=== PATIENT | male | born 1945 | race Caucasian/White ===

== ENCOUNTER → 2016-08-08 | Outpatient (CLI) | payer OTHER ==
[~2016-08-08] MED LIST: ASPI81CH43; FURO40TA PO; OMEP20TA44 PO; POTA12PO2 PO
== END | disposition home or self-care (01) ==
LOC: LAB 12:49
PROVIDERS: ATTEND Family Medicine
DX: L05.01 Pilonidal cyst with abscess (principal)
CPT/HCPCS: 87205

== ENCOUNTER 2017-04-11 12:49 | Inpatient (IN) | payer OTHER ==
[~2017-04-11] VITALS: Ht 188 cm; Wt 90.9 kg
[~2017-04-11 12:49] MED LIST changes: -ASPI81CH43; +ASPI81CH43 OR; +CHOL500023 PO; -FURO40TA PO; -POTA12PO2 PO; +SPIR50TA23 PO
[2017-04-11] MEDS ORDERED: SODIUM CHLORIDE 0.9% 1,000 ML IV ONE ×2 (13:05→17:45)
[2017-04-11] MEDS ORDERED: CLINDAMYCIN 600MG IV 50 ML IV ONE (13:15)
[2017-04-11] MEDS ORDERED: ACETAMINOPHEN 500 MG TAB PO PRN (16:00)
[2017-04-11] MEDS ORDERED: PROMETHAZINE HCL 25 MG/ML 1ML IV PRN (16:00)
[2017-04-11] MEDS ORDERED: HYDROcodone-ACET 5/325MG TAB PO PRN (16:00)
[2017-04-11] MEDS ORDERED: LORazepam 0.5 MG TAB PO PRN (16:00)
[2017-04-11] MEDS ORDERED: TEMAZEPAM 15 MG CAP PO PRN (16:00)
[2017-04-11] MEDS ORDERED: MORPHINE SULF INJ 2 MG/ML SYRINGE 1ML IV PRN (16:00)
[2017-04-11] MEDS ORDERED: FAMOTIDINE (10MG/ML) 2ML VL IV SCH (16:00)
[2017-04-11] MEDS ORDERED: cefTRIAXone 1GM/10ml IVPUSH 10 ML IV ONE (16:00)
[2017-04-11 16:04] LABS: Hemoglobin 12.9 g/dL (13.5-17.5); INR 1.09 (0.9-1.15); Lymphocytes # (auto) 1.3 uL; Monocytes # (auto) 0.7 uL; Neutrophils # (auto) 6.9 uL; Partial Thromboplastin Time 27.7 sec (22.64-33.71); Prothrombin Time 11.9 sec (9.37-12.3)
[2017-04-11 16:05] LABS: Basophils # (auto) 0 uL; Basophils % (auto) 0.4 % (0.0-2.0); Eosinophils # (auto) 0 uL; Eosinophils % (auto) 0.4 % (0.0-7.0); Hematocrit 39.6 % (41.0-53.0); Lymphocytes % (auto) 14.1 % (10.0-50.0); Mean Corpuscular Hemoglobin 33.6 pg (28.0-32.0); Mean Corpuscular Hgb Conc. 32.5 g/dL (32.0-36.0); Mean Corpuscular Volume 103.2 fL (80.0-100.0); Monocytes % (auto) 7.9 % (0.0-12.0); Neutrophils % (auto) 77.2 % (37.0-80.0); Platelet Count (auto) 442 10^3/uL (140-450); Red Blood Cells 3.84 10^6/uL (4.5-5.90); Red Cell Distribution Width 13.1 % (11.8-14.3); White Blood Cell 8.9 10^3/uL (4.4-10.8)
[2017-04-11] MEDS ORDERED: PANTOPRAZOLE 40 MG TAB PO ONE (16:15)
[2017-04-11] MEDS ORDERED: CHOLECALCIFEROL (VITD3) 1,000 UNIT TAB PO ONE (16:15)
[2017-04-11] MEDS ORDERED: SPIRONOLACTONE 25 MG TAB PO ONE (16:15)
[2017-04-11 16:17] LABS: BUN/Creatinine Ratio 30.8; Bilirubin, Total 0.6 mg/dL (0.2-1.0); Calcium 7.2 mg/dL (8.5-10.1); Potassium 4.6 mmol/L (3.5-5.1); Total Protein 5.9 g/dL (6.4-8.2)
[2017-04-11] MEDS: metroNIDAZOLE 500MG/100ML 100 ML IV SCH (17:30)
[2017-04-11] MEDS: SODIUM CHLORIDE 0.9% 1,000 ML IV SCH (17:45)
[2017-04-11 21:52] LABS: Basophils # (auto) 0.1 uL; Eosinophils # (auto) 0.1 uL; Hematocrit 39.4 % (41.0-53.0); Monocytes # (auto) 0.7 uL; Neutrophils # (auto) 6.3 uL; Red Cell Distribution Width 13.3 % (11.8-14.3)
[2017-04-11 21:54] LABS: Basophils % (auto) 1.5 % (0.0-2.0); Hemoglobin 12.5 g/dL (13.5-17.5); Lymphocytes # (auto) 1.3 uL; Lymphocytes % (auto) 15.5 % (10.0-50.0); Mean Corpuscular Hemoglobin 32.8 pg (28.0-32.0); Mean Corpuscular Hgb Conc. 31.8 g/dL (32.0-36.0); Mean Corpuscular Volume 103.1 fL (80.0-100.0); Monocytes % (auto) 8.4 % (0.0-12.0); Neutrophils % (auto) 73.6 % (37.0-80.0); Platelet Count (auto) 497 10^3/uL (140-450); Red Blood Cells 3.82 10^6/uL (4.5-5.90); White Blood Cell 8.5 10^3/uL (4.4-10.8)
[2017-04-11 22:00] VITALS: BP 88/55
[2017-04-11 22:02] LABS: INR 1.05 (0.9-1.15); Partial Thromboplastin Time 28.9 sec (22.64-33.71); Prothrombin Time 11.5 sec (9.37-12.3)
[2017-04-11 22:09] LABS: BUN/Creatinine Ratio 31.8; Calcium 7.2 mg/dL (8.5-10.1); Potassium 4.1 mmol/L (3.5-5.1)
[2017-04-11 22:11] LABS: Bilirubin, Total 0.4 mg/dL (0.2-1.0); Total Protein 5.8 g/dL (6.4-8.2)
[2017-04-12] MEDS: SODIUM CHLORIDE 0.9% 1,000 ML IV SCH ×3 (01:48→21:48)
[2017-04-12 05:00] VITALS: BP 97/39
[2017-04-12] MEDS: metroNIDAZOLE 500MG/100ML 100 ML IV SCH ×4 (05:08→18:00)
[2017-04-12 08:41] VITALS: BP 86/43
[2017-04-12] MEDS: cefTRIAXone 1GM/10ml IVPUSH 10 ML IV SCH (11:22)
[2017-04-12] MEDS: SPIRONOLACTONE 25 MG TAB PO SCH (11:23)
[2017-04-12] MEDS: PANTOPRAZOLE 40 MG TAB PO SCH (11:24)
[2017-04-12] MEDS: CHOLECALCIFEROL (VITD3) 1,000 UNIT TAB PO SCH (11:24)
[2017-04-12 13:27] VITALS: BP 86/51
[2017-04-12 19:41] LABS: Eosinophils # (auto) 0.1 uL; Hemoglobin 12.1 g/dL (13.5-17.5)
[2017-04-12 19:42] LABS: Basophils # (auto) 0.2 uL; Basophils % (auto) 2.3 % (0.0-2.0); Hematocrit 37.1 % (41.0-53.0); Lymphocytes # (auto) 1.1 uL; Lymphocytes % (auto) 13.6 % (10.0-50.0); Mean Corpuscular Hemoglobin 33.9 pg (28.0-32.0); Mean Corpuscular Hgb Conc. 32.7 g/dL (32.0-36.0); Mean Corpuscular Volume 103.6 fL (80.0-100.0); Monocytes # (auto) 0.5 uL; Monocytes % (auto) 6.1 % (0.0-12.0); Neutrophils # (auto) 6.5 uL; Nucleated Red Blood Cells % 0.1 %; Platelet Count (auto) 425 10^3/uL (140-450); Red Blood Cells 3.58 10^6/uL (4.5-5.90); Red Cell Distribution Width 13.1 % (11.8-14.3); White Blood Cell 8.4 10^3/uL (4.4-10.8)
[2017-04-12 20:00] VITALS: BP 85/46
[2017-04-12 20:09] LABS: BUN/Creatinine Ratio 23.9; Bilirubin, Total 0.2 mg/dL (0.2-1.0); Potassium 4.2 mmol/L (3.5-5.1); Total Protein 5.7 g/dL (6.4-8.2)
[2017-04-12] MEDS ORDERED: MORPHINE SULFATE 10 MG/ML INJ 1ML SDV IV PRN (21:15)
[2017-04-12 22:00] VITALS: BP 85/46
[2017-04-12 22:28] LABS: Urine Bacteria FEW /hpf (None Seen); Urine Blood Negative /uL (Negative); Urine Mucus FEW (None Seen); Urine WBC 30 /hpf (0 - 3)
[2017-04-13] MEDS: metroNIDAZOLE 500MG/100ML 100 ML IV SCH ×4 (00:17→18:05)
[2017-04-13 05:52] VITALS: BP 80/58
[2017-04-13] MEDS ORDERED: LABETALOL HCL 5 MG/ML 4ML SYRINGE IV ONE (07:21)
[2017-04-13] MEDS ORDERED: DEXAMETHASONE SOD PHOS 10MG/1ML VIAL INJ ONE (07:21)
[2017-04-13] MEDS ORDERED: ONDANSETRON HCL 4 MG/2 ML VIAL ONE (07:21)
[2017-04-13] MEDS ORDERED: LIDOCAINE HCL 2 %PF INJ 10ML AMP IJ ONE (07:21)
[2017-04-13] MEDS ORDERED: PROPOFOL 10 MG/ML 20 ML IV ONE (07:21)
[2017-04-13] MEDS ORDERED: fentaNYL CITRATE 100 MCG/2 ML VL ONE (07:23)
[2017-04-13] MEDS ORDERED: CLINDAMYCIN 900MG IV 50 ML IV ONE (07:32)
[2017-04-13] MEDS ORDERED: ceFAZolin 1GM/50ML 100 ML IV ONE (07:32)
[2017-04-13] MEDS ORDERED: ePHEDrine SULFATE 50 MG/ML AMP ONE (07:57)
[2017-04-13 08:00] VITALS: BP 93/53
[2017-04-13] MEDS ORDERED: BUPIVACAINE HCL 50 ML ONE (08:22)
[2017-04-13] MEDS ORDERED: FLUMAZENIL 0.1 MG/ML INJ 10ML MDV IV ONE (08:45)
[2017-04-13] MEDS ORDERED: ePHEDrine SULFATE 50 MG/ML AMP IV PRN (08:45)
[2017-04-13] MEDS ORDERED: hydrALAZINE HCL 20 MG/ML VL IV PRN (08:45)
[2017-04-13] MEDS ORDERED: HYDROmorphone HCL 2 MG/ML VL IV PRN ×2 (08:45)
[2017-04-13] MEDS ORDERED: NALOXONE HCL 0.4 MG/ML VIAL IV PRN (08:45)
[2017-04-13] MEDS ORDERED: LABETALOL HCL 5 MG/ML 4ML SYRINGE IV PRN (08:45)
[2017-04-13] MEDS: SODIUM CHLORIDE 0.9% 1,000 ML IV SCH ×2 (12:11→18:04)
[2017-04-13] MEDS: PANTOPRAZOLE 40 MG TAB PO SCH (12:12)
[2017-04-13] MEDS: cefTRIAXone 1GM/10ml IVPUSH 10 ML IV SCH (12:12)
[2017-04-13] MEDS: SPIRONOLACTONE 25 MG TAB PO SCH (12:12)
[2017-04-13] MEDS: CHOLECALCIFEROL (VITD3) 1,000 UNIT TAB PO SCH (12:12)
[2017-04-13 13:00] VITALS: BP 93/53
[2017-04-13 17:16] VITALS: BP 94/44
[2017-04-13 22:00] VITALS: BP 99/59
[2017-04-14] MEDS: metroNIDAZOLE 500MG/100ML 100 ML IV SCH ×5 (00:05→23:34)
[2017-04-14] MEDS: SODIUM CHLORIDE 0.9% 1,000 ML IV SCH ×3 (03:56→23:48)
[2017-04-14 05:54] VITALS: BP 97/57
[2017-04-14 07:10] LABS: Basophils # (auto) 0.1 uL; Eosinophils # (auto) 0 uL; Hemoglobin 11.9 g/dL (13.5-17.5)
[2017-04-14 07:15] LABS: Basophils % (auto) 0.8 % (0.0-2.0); Hematocrit 36.8 % (41.0-53.0); Lymphocytes # (auto) 0.5 uL; Lymphocytes % (auto) 7.1 % (10.0-50.0); Mean Corpuscular Hemoglobin 33.4 pg (28.0-32.0); Mean Corpuscular Hgb Conc. 32.4 g/dL (32.0-36.0); Mean Corpuscular Volume 103.1 fL (80.0-100.0); Monocytes # (auto) 0.5 uL; Monocytes % (auto) 6.5 % (0.0-12.0); Neutrophils # (auto) 6.6 uL; Neutrophils % (auto) 85.6 % (37.0-80.0); Platelet Count (auto) 374 10^3/uL (140-450); Red Blood Cells 3.57 10^6/uL (4.5-5.90); Red Cell Distribution Width 13.3 % (11.8-14.3); White Blood Cell 7.8 10^3/uL (4.4-10.8)
[2017-04-14 07:29] LABS: Albumin 1.9 g/dL (3.4-5.0); Calcium 7.5 mg/dL (8.5-10.1); Potassium 4.2 mmol/L (3.5-5.1)
[2017-04-14 07:33] LABS: BUN/Creatinine Ratio 21.1; Bilirubin, Total 0.3 mg/dL (0.2-1.0); Total Protein 5.5 g/dL (6.4-8.2)
[2017-04-14 09:00] VITALS: BP 99/39
[2017-04-14] MEDS: CHOLECALCIFEROL (VITD3) 1,000 UNIT TAB PO SCH (10:45)
[2017-04-14] MEDS: cefTRIAXone 1GM/10ml IVPUSH 10 ML IV SCH (10:45)
[2017-04-14] MEDS: SPIRONOLACTONE 25 MG TAB PO SCH (10:45)
[2017-04-14] MEDS: PANTOPRAZOLE 40 MG TAB PO SCH (10:45)
[2017-04-14 13:00] VITALS: BP 85/39
[2017-04-14 16:52] VITALS: BP 98/43
[2017-04-14 18:00] VITALS: BP 94/45
[2017-04-14 20:00] VITALS: BP 94/45
[2017-04-15 05:29] VITALS: BP 90/51
[2017-04-15] MEDS: metroNIDAZOLE 500MG/100ML 100 ML IV SCH ×3 (05:41→17:30)
[2017-04-15 09:00] VITALS: BP 95/48
[2017-04-15] MEDS: SODIUM CHLORIDE 0.9% 1,000 ML IV SCH (09:37)
[2017-04-15] MEDS: SPIRONOLACTONE 25 MG TAB PO SCH (09:37)
[2017-04-15] MEDS: cefTRIAXone 1GM/10ml IVPUSH 10 ML IV SCH (09:37)
[2017-04-15] MEDS: CHOLECALCIFEROL (VITD3) 1,000 UNIT TAB PO SCH (09:38)
[2017-04-15] MEDS: PANTOPRAZOLE 40 MG TAB PO SCH (09:38)
[2017-04-15 13:00] VITALS: BP 95/54
[2017-04-15] MEDS ORDERED: POTASSIUM CHL 20 Meq TABLET PO ONE (13:00)
[2017-04-15] MEDS ORDERED: ERTAPENEM SOD INJ 1 GM in SODIUM CHL 0.9% 100 ML IV ONE (13:00)
[2017-04-15] MEDS ORDERED: FUROSEMIDE 20 MG/2 ML VIAL IV ONE (13:00)
[2017-04-15] MEDS ORDERED: ZINC SULFATE 220 MG CAP PO ONE (13:00)
[2017-04-15] MEDS ORDERED: ASCORBIC ACID 500 MG TAB PO ONE (13:00)
[2017-04-15 17:43] VITALS: BP 101/56
[2017-04-15 20:00] VITALS: BP 99/61
[2017-04-15] MEDS ORDERED: LIDOCAINE 1% HCL (LOCAL ANESTH.) INJ 20ML MDV ID ONE (21:45)
[2017-04-15] MEDS: SODIUM CHLOR 0.9% PF (SALINE LOCK) 10ML VIAL IV SCH (22:02)
[2017-04-15 22:26] VITALS: BP 99/61
[2017-04-16] MEDS: metroNIDAZOLE 500MG/100ML 100 ML IV SCH ×2 (00:11→06:00)
[2017-04-16 04:43] VITALS: BP 110/55
[2017-04-16 06:26] LABS: Basophils # (auto) 0.1 uL; Eosinophils # (auto) 0.1 uL; Mean Corpuscular Hgb Conc. 32.4 g/dL (32.0-36.0); White Blood Cell 8.2 10^3/uL (4.4-10.8)
[2017-04-16 06:27] LABS: Basophils % (auto) 0.9 % (0.0-2.0); Eosinophils % (auto) 1.4 % (0.0-7.0); Hematocrit 38.2 % (41.0-53.0); Hemoglobin 12.4 g/dL (13.5-17.5); Lymphocytes # (auto) 1.5 uL; Lymphocytes % (auto) 18.4 % (10.0-50.0); Mean Corpuscular Hemoglobin 33.3 pg (28.0-32.0); Mean Corpuscular Volume 102.6 fL (80.0-100.0); Monocytes # (auto) 0.7 uL; Monocytes % (auto) 9.1 % (0.0-12.0); Neutrophils # (auto) 5.7 uL; Neutrophils % (auto) 70.2 % (37.0-80.0); Nucleated Red Blood Cells % 0.1 %; Platelet Count (auto) 387 10^3/uL (140-450); Red Blood Cells 3.73 10^6/uL (4.5-5.90); Red Cell Distribution Width 13.1 % (11.8-14.3)
[2017-04-16 06:39] LABS: BUN/Creatinine Ratio 15.6; Calcium 7.8 mg/dL (8.5-10.1); Potassium 3.9 mmol/L (3.5-5.1)
[2017-04-16 07:54] VITALS: BP 107/73
[2017-04-16] MEDS: POTASSIUM CHL 20 Meq TABLET PO SCH (09:32)
[2017-04-16] MEDS: SODIUM CHLOR 0.9% PF (SALINE LOCK) 10ML VIAL IV SCH ×2 (09:32→20:44)
[2017-04-16] MEDS: CHOLECALCIFEROL (VITD3) 1,000 UNIT TAB PO SCH (09:32)
[2017-04-16] MEDS: ASCORBIC ACID 500 MG TAB PO SCH (09:32)
[2017-04-16] MEDS: ZINC SULFATE 220 MG CAP PO SCH (09:32)
[2017-04-16] MEDS: PANTOPRAZOLE 40 MG TAB PO SCH (09:33)
[2017-04-16] MEDS: SPIRONOLACTONE 25 MG TAB PO SCH (09:33)
[2017-04-16] MEDS: FUROSEMIDE 40 MG TAB PO SCH (09:47)
[2017-04-16] MEDS: ERTAPENEM SOD INJ 1 GM in SODIUM CHL 0.9% 100 ML IV SCH (09:47)
[2017-04-16] MEDS: metroNIDAZOLE 500 MG TAB PO SCH ×2 (13:40→22:08)
[2017-04-16 14:05] VITALS: BP 95/54
[2017-04-16 17:15] VITALS: BP 84/59
[2017-04-16 17:32] VITALS: BP 112/52
[2017-04-16] MEDS: PRO-STAT 64 30ML PO SCH (18:22)
[2017-04-16 22:00] VITALS: BP 88/59
[2017-04-17] MEDS: metroNIDAZOLE 500 MG TAB PO SCH ×3 (05:44→21:51)
[2017-04-17 05:46] VITALS: BP 91/56
[2017-04-17 08:00] VITALS: BP 114/58
[2017-04-17 09:00] VITALS: BP 114/58
[2017-04-17] MEDS: FUROSEMIDE 40 MG TAB PO SCH (10:00)
[2017-04-17] MEDS: POTASSIUM CHL 20 Meq TABLET PO SCH (10:00)
[2017-04-17] MEDS: SODIUM CHLOR 0.9% PF (SALINE LOCK) 10ML VIAL IV SCH ×2 (10:28→21:44)
[2017-04-17] MEDS: ERTAPENEM SOD INJ 1 GM in SODIUM CHL 0.9% 100 ML IV SCH (10:28)
[2017-04-17] MEDS: CHOLECALCIFEROL (VITD3) 1,000 UNIT TAB PO SCH (10:29)
[2017-04-17] MEDS: PANTOPRAZOLE 40 MG TAB PO SCH (10:29)
[2017-04-17] MEDS: SPIRONOLACTONE 25 MG TAB PO SCH (10:29)
[2017-04-17] MEDS: ASCORBIC ACID 500 MG TAB PO SCH (10:29)
[2017-04-17] MEDS: ZINC SULFATE 220 MG CAP PO SCH (10:29)
[2017-04-17] MEDS: PRO-STAT 64 30ML PO SCH ×2 (10:31→18:38)
[2017-04-17] MEDS ORDERED: AMIKACIN 0 ML IV SCH (11:30)
[2017-04-17] MEDS ORDERED: ASPI81TA27 PO (12:01)
[2017-04-17 12:30] VITALS: BP 101/64
[2017-04-17] MEDS ORDERED: AMIKACIN 1,500 MG in D5W 5% 250 ML IV SCH (14:00)
[2017-04-17] MEDS: MEROPENEM 1gm/20ml IVPUSH 20 ML IV SCH ×2 (15:09→21:51)
[2017-04-17 17:12] VITALS: BP 100/56
[2017-04-17] MEDS: D5W 5% IV SCH (17:18)
[2017-04-17] MEDS: AMIKACIN IV SCH (17:18)
[2017-04-17 21:29] VITALS: BP 89/47
[2017-04-18 05:16] VITALS: BP 90/49
[2017-04-18] MEDS: MEROPENEM 1gm/20ml IVPUSH 20 ML IV SCH ×3 (05:32→21:53)
[2017-04-18] MEDS: metroNIDAZOLE 500 MG TAB PO SCH ×3 (05:33→21:46)
[2017-04-18 08:00] VITALS: BP 94/47
[2017-04-18 09:00] VITALS: BP 86/48
[2017-04-18] MEDS: POTASSIUM CHL 20 Meq TABLET PO SCH (10:00)
[2017-04-18] MEDS: FUROSEMIDE 40 MG TAB PO SCH (10:00)
[2017-04-18] MEDS: PANTOPRAZOLE 40 MG TAB PO SCH (10:17)
[2017-04-18] MEDS: SPIRONOLACTONE 25 MG TAB PO SCH (10:17)
[2017-04-18] MEDS: ZINC SULFATE 220 MG CAP PO SCH (10:18)
[2017-04-18] MEDS: PRO-STAT 64 30ML PO SCH ×2 (10:18→18:09)
[2017-04-18] MEDS: CHOLECALCIFEROL (VITD3) 1,000 UNIT TAB PO SCH (10:18)
[2017-04-18] MEDS: ASCORBIC ACID 500 MG TAB PO SCH (10:18)
[2017-04-18] MEDS: SODIUM CHLOR 0.9% PF (SALINE LOCK) 10ML VIAL IV SCH ×2 (10:19→21:54)
[2017-04-18 13:00] VITALS: BP 91/42
[2017-04-18 15:31] LABS: Basophils # (auto) 0.1 uL; Eosinophils # (auto) 0.2 uL; Hemoglobin 12.9 g/dL (13.5-17.5); Lymphocytes # (auto) 1.3 uL; Monocytes # (auto) 0.9 uL; Neutrophils # (auto) 7.2 uL; Red Cell Distribution Width 13.4 % (11.8-14.3); White Blood Cell 9.7 10^3/uL (4.4-10.8)
[2017-04-18 15:32] LABS: Basophils % (auto) 0.8 % (0.0-2.0); Eosinophils % (auto) 2.4 % (0.0-7.0); Hematocrit 39.8 % (41.0-53.0); Lymphocytes % (auto) 13.3 % (10.0-50.0); Mean Corpuscular Hemoglobin 33.1 pg (28.0-32.0); Mean Corpuscular Hgb Conc. 32.4 g/dL (32.0-36.0); Monocytes % (auto) 8.9 % (0.0-12.0); Neutrophils % (auto) 74.6 % (37.0-80.0); Nucleated Red Blood Cells % 0.1 %; Platelet Count (auto) 349 10^3/uL (140-450)
[2017-04-18 16:42] VITALS: BP 90/59
[2017-04-18] MEDS: D5W 5% IV SCH (17:43)
[2017-04-18] MEDS: AMIKACIN IV SCH (17:43)
[2017-04-18 22:00] VITALS: BP 89/51
[2017-04-19 05:14] VITALS: BP 82/51
[2017-04-19] MEDS: MEROPENEM 1gm/20ml IVPUSH 20 ML IV SCH ×2 (05:53→14:00)
[2017-04-19] MEDS: metroNIDAZOLE 500 MG TAB PO SCH ×2 (05:53→14:00)
[2017-04-19 08:00] VITALS: BP 91/54
[2017-04-19 09:23] VITALS: BP 91/57
[2017-04-19] MEDS: CHOLECALCIFEROL (VITD3) 1,000 UNIT TAB PO SCH (10:00)
[2017-04-19] MEDS: FUROSEMIDE 40 MG TAB PO SCH (10:00)
[2017-04-19] MEDS: POTASSIUM CHL 20 Meq TABLET PO SCH (10:00)
[2017-04-19] MEDS: PANTOPRAZOLE 40 MG TAB PO SCH (10:01)
[2017-04-19] MEDS: ZINC SULFATE 220 MG CAP PO SCH (10:01)
[2017-04-19] MEDS: PRO-STAT 64 30ML PO SCH (10:01)
[2017-04-19] MEDS: ASCORBIC ACID 500 MG TAB PO SCH (10:01)
[2017-04-19] MEDS: SPIRONOLACTONE 25 MG TAB PO SCH (10:01)
[2017-04-19] MEDS: SODIUM CHLOR 0.9% PF (SALINE LOCK) 10ML VIAL IV SCH (10:01)
[2017-04-19 11:12] VITALS: BP 94/55
[2017-04-19 12:03] VITALS: BP 85/45
[2017-04-20] MEDS ORDERED: D5W 5% IV SCH (16:00)
[2017-04-20] MEDS ORDERED: AMIKACIN IV SCH (16:00)
== END 2017-04-19 13:14 | DRG 856 ==
LOC: EDUNIT# 12:49 → ER 12:49 → EDBD 12:49 → OVERFLOW 12:50 → EAST 18:29
PROVIDERS: ADMIT Internal Medicine; ATTEND Internal Medicine
PROC: 0W9L30Z Drainage of Lower Back with Drainage Device, Percutaneous Approach (ICD-10-PCS; 2017-04-13)
PROC: 0JQ70ZZ Repair Back Subcutaneous Tissue and Fascia, Open Approach (ICD-10-PCS; 2017-04-13)
PROC: 0JB70ZZ Excision of Back Subcutaneous Tissue and Fascia, Open Approach (ICD-10-PCS; principal; 2017-04-13 07:38)
PROC: 02HV33Z Insertion of Infusion Device into Superior Vena Cava, Percutaneous Approach (ICD-10-PCS; 2017-04-15)
DX: T81.4XXA Infection following a procedure, initial encounter (principal); L89.154 Pressure ulcer of sacral region, stage 4; E44.0 Moderate protein-calorie malnutrition; I11.0 Hypertensive heart disease with heart failure; I50.32 Chronic diastolic (congestive) heart failure; E66.01 Morbid (severe) obesity due to excess calories; T81.31XA Disruption of external operation (surgical) wound, not elsewhere classified, initial encounter; I73.9 Peripheral vascular disease, unspecified; I89.0 Lymphedema, not elsewhere classified; K21.9 Gastro-esophageal reflux disease without esophagitis; Y83.8 Other surgical procedures as the cause of abnormal reaction of the patient, or of later complication, without mention of misadventure at the time of the procedure; F41.9 Anxiety disorder, unspecified; G47.00 Insomnia, unspecified; M19.90 Unspecified osteoarthritis, unspecified site; K52.9 Noninfective gastroenteritis and colitis, unspecified; Z82.49 Family history of ischemic heart disease and other diseases of the circulatory system; Z98.84 Bariatric surgery status; Z68.25 Body mass index [BMI] 25.0-25.9, adult; Z88.2 Allergy status to sulfonamides; Z79.899 Other long term (current) drug therapy; Z90.49 Acquired absence of other specified parts of digestive tract; Z90.89 Acquired absence of other organs; Y92.89 Other specified places as the place of occurrence of the external cause
CPT/HCPCS: 36415; 36569; 71045; 80048; 80053; 80150; 81001; 82565; 85025; 85610; 85730; 86850; 86900; 86901; 87070; 87075; 87077; 87081; 87186; 87205; 87493; 94761; 96361; 96365; 96375; 96379; 97110; 97163; 97530; J0690; J1100; J1335; J2405; J2704; J3490; J7060

== ENCOUNTER 2017-04-29 17:27 | Emergency (ER) | payer OTHER ==
[~2017-04-29] VITALS: Ht 185.4 cm; Wt 93.0 kg
[~2017-04-29 17:27] MED LIST changes: -ASPI81CH43 OR; +ASPI81TA27 PO
[2017-04-29 21:04] LABS: Basophils # (auto) 0 uL; Basophils % (auto) 0.6 % (0.0-2.0); Eosinophils # (auto) 0.2 uL; Eosinophils % (auto) 2.3 % (0.0-7.0); Hematocrit 38.3 % (41.0-53.0); Hemoglobin 12.6 g/dL (13.5-17.5); Lymphocytes # (auto) 1.4 uL; Lymphocytes % (auto) 18.9 % (10.0-50.0); Mean Corpuscular Hemoglobin 32.7 pg (28.0-32.0); Mean Corpuscular Volume 99.3 fL (80.0-100.0); Monocytes # (auto) 0.7 uL; Monocytes % (auto) 9.5 % (0.0-12.0); Neutrophils # (auto) 5.1 uL; Neutrophils % (auto) 68.7 % (37.0-80.0); Nucleated Red Blood Cells % 0.3 %; Platelet Count (auto) 356 10^3/uL (140-450); Red Blood Cells 3.85 10^6/uL (4.5-5.90); Red Cell Distribution Width 13.5 % (11.8-14.3); White Blood Cell 7.5 10^3/uL (4.4-10.8)
[2017-04-29 21:13] LABS: BUN/Creatinine Ratio 18.2; Calcium 7.6 mg/dL (8.5-10.1); Potassium 3.8 mmol/L (3.5-5.1)
[2017-04-29 22:10] VITALS: BP 85/61
== END 2017-04-29 21:05 | disposition home or self-care (01) ==
LOC: EDBD 17:27 → ER 17:27
DX: L89.154 Pressure ulcer of sacral region, stage 4 (principal); M19.90 Unspecified osteoarthritis, unspecified site; K21.9 Gastro-esophageal reflux disease without esophagitis; Z90.49 Acquired absence of other specified parts of digestive tract; Z90.89 Acquired absence of other organs; Z88.2 Allergy status to sulfonamides; Z79.899 Other long term (current) drug therapy
CPT/HCPCS: 36415; 80048; 85025

== ENCOUNTER 2017-05-08 12:33 | Observation (INO) | payer OTHER ==
[~2017-05-08] VITALS: Ht 182.9 cm; Wt 88.5 kg
[2017-05-08 15:25] LABS: Basophils # (auto) 0.1 uL; Eosinophils # (auto) 0.2 uL; Eosinophils % (auto) 2.9 % (0.0-7.0); Hematocrit 39.3 % (41.0-53.0); Hemoglobin 12.8 g/dL (13.5-17.5); Lymphocytes # (auto) 1.3 uL; Lymphocytes % (auto) 15.9 % (10.0-50.0); Mean Corpuscular Hemoglobin 32.2 pg (28.0-32.0); Mean Corpuscular Hgb Conc. 32.6 g/dL (32.0-36.0); Mean Corpuscular Volume 98.8 fL (80.0-100.0); Monocytes # (auto) 0.6 uL; Monocytes % (auto) 7.6 % (0.0-12.0); Neutrophils % (auto) 72.6 % (37.0-80.0); Nucleated Red Blood Cells % 0.1 %; Platelet Count (auto) 330 10^3/uL (140-450); Red Blood Cells 3.98 10^6/uL (4.5-5.90); Red Cell Distribution Width 14.1 % (11.8-14.3); White Blood Cell 8.2 10^3/uL (4.4-10.8)
[2017-05-08 15:37] LABS: Albumin 1.9 g/dL (3.4-5.0); BUN/Creatinine Ratio 28.8; Bilirubin, Total 0.3 mg/dL (0.2-1.0); Calcium 7.9 mg/dL (8.5-10.1); Potassium 4.4 mmol/L (3.5-5.1); Total Protein 5.9 g/dL (6.4-8.2)
[2017-05-08 15:47] LABS: Urine Bacteria NONE SEEN /hpf (None Seen); Urine Blood Negative /uL (Negative); Urine Hyaline Cast FEW /lpf (0 - 2); Urine Specific Gravity 1.016 (1.001-1.035); Urine WBC <1 /hpf (0 - 3)
[2017-05-08] MEDS ORDERED: cefTRIAXone 1GM/10ml IVPUSH 10 ML IV ONE (17:45)
[2017-05-08 17:51] VITALS: BP 98/56
== END 2017-05-08 17:44 | disposition home or self-care (01) | DRG 605 ==
LOC: EDBD 12:33 → ER 12:33 → OVERFLOW 14:51 → ER 17:44
PROVIDERS: ADMIT Family Medicine; ATTEND Family Medicine
DX: S31.000A Unspecified open wound of lower back and pelvis without penetration into retroperitoneum, initial encounter (principal); K21.9 Gastro-esophageal reflux disease without esophagitis; X58.XXXA Exposure to other specified factors, initial encounter; Y93.89 Activity, other specified; Y92.89 Other specified places as the place of occurrence of the external cause; Y99.8 Other external cause status
CPT/HCPCS: 36415; 80053; 81001; 85025; 87077; 87186; 87205; 93005; 96374; 99285; G0378

== ENCOUNTER 2017-05-14 16:51 | Emergency (ER) | payer OTHER ==
[~2017-05-14] VITALS: Ht 188 cm; Wt 102.1 kg
[2017-05-14 21:51] VITALS: BP 100/62
== END 2017-05-14 21:52 | disposition home or self-care (01) ==
LOC: EDUNIT# 16:51 → EDBD 16:51 → ER 16:57
DX: T81.30XA Disruption of wound, unspecified, initial encounter (principal); K21.9 Gastro-esophageal reflux disease without esophagitis; Z90.49 Acquired absence of other specified parts of digestive tract; Z88.2 Allergy status to sulfonamides; Z79.82 Long term (current) use of aspirin; Z79.899 Other long term (current) drug therapy

== ENCOUNTER 2017-05-30 15:57 | Inpatient (IN) | payer OTHER ==
[~2017-05-30] VITALS: Ht 185.4 cm; Wt 119.0 kg
[2017-05-30] MEDS ORDERED: SODIUM CHLORIDE 0.9% 1,000 ML IV ONE ×2 (16:35→17:30)
[2017-05-30] MEDS ORDERED: PIPERACILLIN-TAZOB 3.375GM 50 ML IV ONE (17:15)
[2017-05-30] MEDS ORDERED: MORPHINE SULFATE 4 MG/ML SYR/VIAL IV PRN ×2 (17:15)
[2017-05-30] MEDS ORDERED: ENOXAPARIN SOD 100 MG/1 ML SYRINGE SC ONE ×2 (17:15→18:00)
[2017-05-30] MEDS ORDERED: LACTULOSE 20Gm/30ML SOLN PO PRN (17:15)
[2017-05-30] MEDS ORDERED: PROMETHAZINE HCL 25 MG/ML 1ML IV PRN (17:15)
[2017-05-30] MEDS ORDERED: VANCOMYCIN PER PHARMACY 0 MG IV SCH (17:15)
[2017-05-30] MEDS ORDERED: NITROGLYCERIN 0.4 MG SL TAB SL PRN (17:15)
[2017-05-30] MEDS ORDERED: TEMAZEPAM 15 MG CAP PO PRN (17:15)
[2017-05-30] MEDS ORDERED: HYDROcodone-ACET 5/325MG TAB PO PRN (17:15)
[2017-05-30 17:46] LABS: Basophils # (auto) 0.1 uL; Basophils % (auto) 0.4 % (0.0-2.0); Eosinophils # (auto) 0.1 uL; Eosinophils % (auto) 0.7 % (0.0-7.0); Hematocrit 42.4 % (41.0-53.0); Hemoglobin 13.7 g/dL (13.5-17.5); Lymphocytes # (auto) 1.2 uL; Lymphocytes % (auto) 9.4 % (10.0-50.0); Mean Corpuscular Hemoglobin 30.6 pg (28.0-32.0); Mean Corpuscular Hgb Conc. 32.3 g/dL (32.0-36.0); Mean Corpuscular Volume 94.7 fL (80.0-100.0); Monocytes # (auto) 1.1 uL; Monocytes % (auto) 8.6 % (0.0-12.0); Neutrophils % (auto) 80.9 % (37.0-80.0); Nucleated Red Blood Cells % 0.1 %; Platelet Count (auto) 297 10^3/uL (140-450); Red Blood Cells 4.48 10^6/uL (4.5-5.90); Red Cell Distribution Width 14.3 % (11.8-14.3); White Blood Cell 12.4 10^3/uL (4.4-10.8)
[2017-05-30 17:55] LABS: INR 1.15 (0.9-1.15); Partial Thromboplastin Time 30.4 sec (22.64-33.71); Prothrombin Time 12.5 sec (9.37-12.3)
[2017-05-30 18:00] LABS: Albumin 1.8 g/dL (3.4-5.0); Calcium 7.3 mg/dL (8.5-10.1); Magnesium 1.6 mg/dL (1.6-2.6); Potassium 3.8 mmol/L (3.5-5.1)
[2017-05-30 18:06] LABS: BUN/Creatinine Ratio 30.9; Bilirubin, Total 0.5 mg/dL (0.2-1.0); Total Protein 6.2 g/dL (6.4-8.2)
[2017-05-30] MEDS: SODIUM CHLORIDE 0.9% 1,000 ML IV SCH (18:53)
[2017-05-30] MEDS ORDERED: VANCOMYCIN 1GM/250ML 250 ML IV ONE (19:30)
[2017-05-30 20:13] VITALS: BP 92/56
[2017-05-30 21:18] LABS: Urine Bacteria NONE SEEN /hpf (None Seen); Urine Blood Negative /uL (Negative); Urine Specific Gravity 1.014 (1.001-1.035); Urine WBC 1 /hpf (0 - 3)
[2017-05-30] MEDS ORDERED: APIXABAN 5 MG TAB PO SCH (22:00)
[2017-05-30] MEDS: PIPERACILLIN-TAZOB 3.375GM 50 ML IV SCH (23:51)
[2017-05-31] VITALS (73 sets, daily range): BP systolic 76–111; BP diastolic 32–74
[2017-05-31] MEDS ORDERED: ALBUMIN 5% 250 ML IV ONE ×2 (01:13→01:15)
[2017-05-31] MEDS: SODIUM CHLORIDE 0.9% 1,000 ML IV SCH ×2 (04:00→14:30)
[2017-05-31] MEDS: NOREPINEPHRINE 8 MG/250ML KIT 250 ML IV SCH (04:50)
[2017-05-31] MEDS ORDERED: NOREPINEPHRINE 8 MG/250ML KIT 250 ML IV ONE (04:50)
[2017-05-31 04:51] LABS: Basophils # (auto) 0.1 uL; Basophils % (auto) 0.7 % (0.0-2.0); Eosinophils # (auto) 0.1 uL; Eosinophils % (auto) 0.7 % (0.0-7.0); Hematocrit 37.9 % (41.0-53.0); Hemoglobin 12.3 g/dL (13.5-17.5); Lymphocytes # (auto) 1.1 uL; Lymphocytes % (auto) 9.3 % (10.0-50.0); Mean Corpuscular Hgb Conc. 32.5 g/dL (32.0-36.0); Mean Corpuscular Volume 95.3 fL (80.0-100.0); Monocytes # (auto) 0.9 uL; Monocytes % (auto) 7.5 % (0.0-12.0); Neutrophils # (auto) 10.1 uL; Neutrophils % (auto) 81.8 % (37.0-80.0); Nucleated Red Blood Cells % 0.1 %; Platelet Count (auto) 287 10^3/uL (140-450); Red Blood Cells 3.98 10^6/uL (4.5-5.90); Red Cell Distribution Width 14.4 % (11.8-14.3); White Blood Cell 12.3 10^3/uL (4.4-10.8)
[2017-05-31 05:17] LABS: Magnesium 1.8 mg/dL (1.6-2.6); Phosphorus 3.1 mg/dL (2.5-4.90)
[2017-05-31] MEDS: PIPERACILLIN-TAZOB 3.375GM 50 ML IV SCH ×3 (06:00→18:00)
[2017-05-31] MEDS: ENOXAPARIN SOD 100 MG/1 ML SYRINGE SC SCH ×2 (06:00→18:00)
[2017-05-31 06:15] LABS: BUN/Creatinine Ratio 31.9; Calcium 7.5 mg/dL (8.5-10.1); Potassium 3.8 mmol/L (3.5-5.1)
[2017-05-31] MEDS: VANCOMYCIN 750 MG in D5W 5% 250 ML IV SCH ×2 (09:15→22:05)
[2017-05-31] MEDS ORDERED: SODIUM CHLORIDE 0.9% 1,000 ML IV ONE (10:00)
[2017-05-31] MEDS: BOOST 8 ounces PO SCH ×2 (12:50→18:00)
[2017-05-31] MEDS: ALBUMIN 25% 100 ML IV SCH ×3 (12:50→23:47)
[2017-06-01] VITALS (77 sets, daily range): BP systolic 72–123; BP diastolic 26–86
[2017-06-01] MEDS: PIPERACILLIN-TAZOB 3.375GM 50 ML IV SCH ×5 (02:46→23:42)
[2017-06-01] MEDS: SODIUM CHLORIDE 0.9% 1,000 ML IV SCH ×2 (02:47→10:38)
[2017-06-01 04:03] LABS: Basophils # (auto) 0.1 uL; Basophils % (auto) 0.7 % (0.0-2.0); Eosinophils # (auto) 0.1 uL; Eosinophils % (auto) 1.2 % (0.0-7.0); Hematocrit 34.6 % (41.0-53.0); Hemoglobin 11.3 g/dL (13.5-17.5); Lymphocytes # (auto) 1.7 uL; Lymphocytes % (auto) 15.9 % (10.0-50.0); Mean Corpuscular Hemoglobin 31.3 pg (28.0-32.0); Mean Corpuscular Hgb Conc. 32.8 g/dL (32.0-36.0); Mean Corpuscular Volume 95.4 fL (80.0-100.0); Monocytes # (auto) 0.9 uL; Monocytes % (auto) 8.4 % (0.0-12.0); Neutrophils # (auto) 7.7 uL; Neutrophils % (auto) 73.8 % (37.0-80.0); Platelet Count (auto) 344 10^3/uL (140-450); Red Blood Cells 3.62 10^6/uL (4.5-5.90); Red Cell Distribution Width 14.4 % (11.8-14.3); White Blood Cell 10.4 10^3/uL (4.4-10.8)
[2017-06-01 04:25] LABS: Calcium 7.8 mg/dL (8.5-10.1); Potassium 3.7 mmol/L (3.5-5.1)
[2017-06-01 04:27] LABS: BUN/Creatinine Ratio 28.6
[2017-06-01] MEDS: DOPamine 1600MCG/ML D5W 250 ML IV SCH ×2 (05:24→17:47)
[2017-06-01] MEDS: ALBUMIN 25% 100 ML IV SCH ×4 (05:48→23:41)
[2017-06-01] MEDS: ENOXAPARIN SOD 100 MG/1 ML SYRINGE SC SCH ×2 (05:49→18:14)
[2017-06-01] MEDS: VANCOMYCIN 750 MG in D5W 5% 250 ML IV SCH ×2 (09:18→22:29)
[2017-06-01] MEDS: BOOST 8 ounces PO SCH ×3 (09:37→18:14)
[2017-06-01] MEDS: ACETAMINOPHEN 500 MG TAB PO PRN (09:37)
[2017-06-01] MEDS ORDERED: LIDOCAINE 1% HCL (LOCAL ANESTH.) INJ 20ML MDV ID ONE (15:00)
[2017-06-01] MEDS: NOREPINEPHRINE 8 MG/250ML KIT 250 ML IV SCH (22:29)
[2017-06-01] MEDS: SODIUM CHLOR 0.9% PF (SALINE LOCK) 10ML VIAL/SYR IV SCH (22:29)
[2017-06-01] MEDS: EPINEPHrine HCL 250 ML IV SCH (23:41)
[2017-06-02] VITALS (93 sets, daily range): BP systolic 81–123; BP diastolic 37–86
[2017-06-02 03:47] LABS: Basophils # (auto) 0.1 uL; Basophils % (auto) 1.2 % (0.0-2.0); Eosinophils # (auto) 0.1 uL; Eosinophils % (auto) 0.7 % (0.0-7.0); Hematocrit 31.6 % (41.0-53.0); Hemoglobin 10.2 g/dL (13.5-17.5); Lymphocytes # (auto) 1.1 uL; Lymphocytes % (auto) 8.9 % (10.0-50.0); Mean Corpuscular Hemoglobin 30.8 pg (28.0-32.0); Mean Corpuscular Hgb Conc. 32.3 g/dL (32.0-36.0); Mean Corpuscular Volume 95.3 fL (80.0-100.0); Monocytes # (auto) 0.7 uL; Monocytes % (auto) 5.5 % (0.0-12.0); Neutrophils # (auto) 10.3 uL; Neutrophils % (auto) 83.7 % (37.0-80.0); Platelet Count (auto) 337 10^3/uL (140-450); Red Blood Cells 3.32 10^6/uL (4.5-5.90); Red Cell Distribution Width 14.4 % (11.8-14.3); White Blood Cell 12.4 10^3/uL (4.4-10.8)
[2017-06-02 04:00] LABS: BUN/Creatinine Ratio 23.1; Calcium 7.8 mg/dL (8.5-10.1); Potassium 3.8 mmol/L (3.5-5.1)
[2017-06-02] MEDS: ALBUMIN 25% 100 ML IV SCH ×2 (06:22→13:00)
[2017-06-02] MEDS: PIPERACILLIN-TAZOB 3.375GM 50 ML IV SCH (06:23)
[2017-06-02] MEDS: ENOXAPARIN SOD 100 MG/1 ML SYRINGE SC SCH ×2 (06:23→18:00)
[2017-06-02] MEDS: SODIUM CHLORIDE 0.9% 1,000 ML IV SCH ×3 (06:24→20:30)
[2017-06-02] MEDS: DOPamine 1600MCG/ML D5W 250 ML IV SCH ×2 (07:55→20:21)
[2017-06-02] MEDS: NOREPINEPHRINE 8 MG/250ML KIT 250 ML IV SCH ×2 (08:00→22:00)
[2017-06-02] MEDS: BOOST 8 ounces PO SCH ×3 (08:00→18:00)
[2017-06-02] MEDS: VANCOMYCIN 750 MG in D5W 5% 250 ML IV SCH ×2 (10:31→21:00)
[2017-06-02] MEDS: MAGNESIUM SULFATE 1GM/100ML 100 ML IV SCH ×2 (10:31→11:30)
[2017-06-02] MEDS: EPINEPHrine HCL 250 ML IV SCH ×2 (10:32→22:00)
[2017-06-02] MEDS: SODIUM CHLOR 0.9% PF (SALINE LOCK) 10ML VIAL/SYR IV SCH ×2 (10:32→22:00)
[2017-06-02] MEDS: CEFEPIME HYDROCHLORIDE 2 GM in SODIUM CHL 0.9% 50 ML IV SCH ×2 (12:30→22:00)
[2017-06-02] MEDS: DIPHENOXYLATE W/ATROPINE 2.5 MG TAB PO PRN (13:45)
[2017-06-02] MEDS: PRO-STAT 64 30ML PO SCH (18:00)
[2017-06-02] MEDS: ZINC SULFATE 220 MG CAP PO SCH (22:00)
[2017-06-02] MEDS: ASCORBIC ACID 500 MG TAB PO SCH (22:00)
[2017-06-03] VITALS (95 sets, daily range): BP systolic 83–131; BP diastolic 34–87
[2017-06-03] MEDS: LORazepam 0.5 MG TAB PO PRN
[2017-06-03] MEDS: ACETAMINOPHEN 500 MG TAB PO PRN
[2017-06-03] MEDS: SODIUM CHLORIDE 0.9% 1,000 ML IV SCH ×3 (02:30→21:53)
[2017-06-03 03:50] LABS: Basophils # (auto) 0 uL; Basophils % (auto) 0.2 % (0.0-2.0); Eosinophils # (auto) 0.1 uL; Eosinophils % (auto) 1.3 % (0.0-7.0); Hematocrit 31.1 % (41.0-53.0); Hemoglobin 10.3 g/dL (13.5-17.5); Lymphocytes # (auto) 1.3 uL; Lymphocytes % (auto) 15.8 % (10.0-50.0); Mean Corpuscular Hemoglobin 31.4 pg (28.0-32.0); Mean Corpuscular Hgb Conc. 32.9 g/dL (32.0-36.0); Mean Corpuscular Volume 95.3 fL (80.0-100.0); Monocytes # (auto) 0.5 uL; Monocytes % (auto) 6.5 % (0.0-12.0); Neutrophils # (auto) 6.3 uL; Neutrophils % (auto) 76.2 % (37.0-80.0); Platelet Count (auto) 311 10^3/uL (140-450); Red Blood Cells 3.27 10^6/uL (4.5-5.90); Red Cell Distribution Width 14.6 % (11.8-14.3); White Blood Cell 8.3 10^3/uL (4.4-10.8)
[2017-06-03] MEDS: NOREPINEPHRINE 8 MG/250ML KIT 250 ML IV SCH (04:48)
[2017-06-03] MEDS: ENOXAPARIN SOD 100 MG/1 ML SYRINGE SC SCH ×2 (06:14→18:35)
[2017-06-03 07:19] LABS: BUN/Creatinine Ratio 22.2; Calcium 8.2 mg/dL (8.5-10.1)
[2017-06-03] MEDS: PRO-STAT 64 30ML PO SCH ×2 (08:43→18:35)
[2017-06-03] MEDS: BOOST 8 ounces PO SCH ×3 (08:43→18:35)
[2017-06-03] MEDS: VANCOMYCIN 750 MG in D5W 5% 250 ML IV SCH ×2 (09:00→20:26)
[2017-06-03] MEDS: DOPamine 1600MCG/ML D5W 250 ML IV SCH ×2 (09:38→21:51)
[2017-06-03] MEDS: CEFEPIME HYDROCHLORIDE 2 GM in SODIUM CHL 0.9% 50 ML IV SCH ×2 (10:11→21:51)
[2017-06-03] MEDS: ZINC SULFATE 220 MG CAP PO SCH ×2 (10:12→20:22)
[2017-06-03] MEDS: MULTIPLE VITAMIN TAB PO SCH (10:12)
[2017-06-03] MEDS: ASCORBIC ACID 500 MG TAB PO SCH ×2 (10:12→20:23)
[2017-06-03] MEDS: SODIUM CHLOR 0.9% PF (SALINE LOCK) 10ML VIAL/SYR IV SCH ×2 (10:12→20:22)
[2017-06-03] MEDS: DIPHENOXYLATE W/ATROPINE 2.5 MG TAB PO PRN ×2 (12:52→20:23)
[2017-06-04] VITALS (94 sets, daily range): BP systolic 69–127; BP diastolic 35–80
[2017-06-04 03:44] LABS: Basophils # (auto) 0.1 uL; Basophils % (auto) 1.2 % (0.0-2.0); Eosinophils # (auto) 0.2 uL; Eosinophils % (auto) 2.4 % (0.0-7.0); Lymphocytes # (auto) 1.2 uL; Lymphocytes % (auto) 16.8 % (10.0-50.0); Mean Corpuscular Hemoglobin 30.8 pg (28.0-32.0); Mean Corpuscular Hgb Conc. 32.3 g/dL (32.0-36.0); Mean Corpuscular Volume 95.2 fL (80.0-100.0); Monocytes # (auto) 0.5 uL; Monocytes % (auto) 7.3 % (0.0-12.0); Neutrophils % (auto) 72.3 % (37.0-80.0); Platelet Count (auto) 370 10^3/uL (140-450); Red Blood Cells 3.57 10^6/uL (4.5-5.90); Red Cell Distribution Width 14.4 % (11.8-14.3); White Blood Cell 6.9 10^3/uL (4.4-10.8)
[2017-06-04 04:00] LABS: Magnesium 1.7 mg/dL (1.6-2.6)
[2017-06-04 04:02] LABS: BUN/Creatinine Ratio 34.1
[2017-06-04] MEDS: NOREPINEPHRINE 8 MG/250ML KIT 250 ML IV SCH (04:41)
[2017-06-04] MEDS: ENOXAPARIN SOD 100 MG/1 ML SYRINGE SC SCH ×2 (06:00→18:00)
[2017-06-04] MEDS: PRO-STAT 64 30ML PO SCH ×2 (08:00→18:51)
[2017-06-04] MEDS: BOOST 8 ounces PO SCH ×3 (08:00→18:51)
[2017-06-04] MEDS: VANCOMYCIN 750 MG in D5W 5% 250 ML IV SCH ×2 (09:00→21:00)
[2017-06-04] MEDS ORDERED: ALBUMIN 25% 100 ML IV SCH (09:45)
[2017-06-04] MEDS: CEFEPIME HYDROCHLORIDE 2 GM in SODIUM CHL 0.9% 50 ML IV SCH ×2 (10:27→22:00)
[2017-06-04] MEDS: SODIUM CHLOR 0.9% PF (SALINE LOCK) 10ML VIAL/SYR IV SCH ×2 (10:28→22:00)
[2017-06-04] MEDS: ZINC SULFATE 220 MG CAP PO SCH ×2 (10:28→22:00)
[2017-06-04] MEDS: MULTIPLE VITAMIN TAB PO SCH (10:28)
[2017-06-04] MEDS: FAMOTIDINE 20 MG TAB PO SCH ×2 (10:28→22:00)
[2017-06-04] MEDS: ASCORBIC ACID 500 MG TAB PO SCH ×2 (10:29→22:00)
[2017-06-04] MEDS: SODIUM CHLORIDE 0.9% 1,000 ML IV SCH (15:08)
[2017-06-04] MEDS: ALBUMIN 25% 100 ML IV SCH ×2 (16:00→22:00)
[2017-06-04] MEDS: EPINEPHrine HCL 250 ML IV SCH (18:35)
[2017-06-05] VITALS (50 sets, daily range): BP systolic 81–133; BP diastolic 34–109
[2017-06-05] MEDS: ALBUMIN 25% 100 ML IV SCH ×3 (04:00→21:05)
[2017-06-05] MEDS: SODIUM CHLORIDE 0.9% 1,000 ML IV SCH ×3 (04:30→15:44)
[2017-06-05] MEDS: NOREPINEPHRINE 8 MG/250ML KIT 250 ML IV SCH ×2 (04:48→08:07)
[2017-06-05 05:20] LABS: Basophils # (auto) 0 uL; Basophils % (auto) 0.3 % (0.0-2.0); Eosinophils # (auto) 0.1 uL; Eosinophils % (auto) 2.2 % (0.0-7.0); Hematocrit 31.7 % (41.0-53.0); Hemoglobin 10.5 g/dL (13.5-17.5); Lymphocytes # (auto) 1.2 uL; Lymphocytes % (auto) 18.5 % (10.0-50.0); Mean Corpuscular Hemoglobin 31.9 pg (28.0-32.0); Mean Corpuscular Hgb Conc. 33.1 g/dL (32.0-36.0); Mean Corpuscular Volume 96.3 fL (80.0-100.0); Monocytes # (auto) 0.5 uL; Monocytes % (auto) 7.4 % (0.0-12.0); Neutrophils # (auto) 4.5 uL; Neutrophils % (auto) 71.6 % (37.0-80.0); Platelet Count (auto) 346 10^3/uL (140-450); Red Blood Cells 3.29 10^6/uL (4.5-5.90); White Blood Cell 6.4 10^3/uL (4.4-10.8)
[2017-06-05 05:38] LABS: BUN/Creatinine Ratio 28.6; Calcium 8.6 mg/dL (8.5-10.1); Potassium 3.9 mmol/L (3.5-5.1)
[2017-06-05] MEDS: ENOXAPARIN SOD 100 MG/1 ML SYRINGE SC SCH (06:00)
[2017-06-05] MEDS: BOOST 8 ounces PO SCH ×3 (08:00→18:52)
[2017-06-05] MEDS: PRO-STAT 64 30ML PO SCH ×2 (08:00→18:52)
[2017-06-05] MEDS: VANCOMYCIN 750 MG in D5W 5% 250 ML IV SCH ×2 (09:13→21:04)
[2017-06-05] MEDS: MULTIPLE VITAMIN TAB PO SCH (09:18)
[2017-06-05] MEDS: ASCORBIC ACID 500 MG TAB PO SCH ×2 (09:18→21:06)
[2017-06-05] MEDS: ZINC SULFATE 220 MG CAP PO SCH ×2 (09:18→21:05)
[2017-06-05] MEDS: SODIUM CHLOR 0.9% PF (SALINE LOCK) 10ML VIAL/SYR IV SCH ×2 (09:18→21:05)
[2017-06-05] MEDS: FAMOTIDINE 20 MG TAB PO SCH ×2 (09:18→21:06)
[2017-06-05] MEDS: DIPHENOXYLATE W/ATROPINE 2.5 MG TAB PO PRN (09:19)
[2017-06-05] MEDS: ENOXAPARIN SOD 120 MG/0.8 ML SYRINGE SC SCH ×2 (09:19→21:06)
[2017-06-05] MEDS: CEFEPIME HYDROCHLORIDE 2 GM in SODIUM CHL 0.9% 50 ML IV SCH (11:03)
[2017-06-05] MEDS ORDERED: AMIKACIN 0 ML IV SCH (15:30)
[2017-06-05] MEDS: MEROPENEM 1gm/20ml IVPUSH 20 ML IV SCH ×2 (15:43→21:05)
[2017-06-05] MEDS ORDERED: AMIKACIN 1,500 MG in D5W 5% 100 ML IV SCH (16:00)
[2017-06-05] MEDS ORDERED: AMIKACIN 1,000 MG in D5W 5% 100 ML IV SCH (16:00)
[2017-06-06] VITALS (7 sets, daily range): BP systolic 90–117; BP diastolic 46–67
[2017-06-06 06:08] LABS: Calcium 7.6 mg/dL (8.5-10.1); Magnesium 1.7 mg/dL (1.6-2.6); Potassium 3.1 mmol/L (3.5-5.1)
[2017-06-06] MEDS: ALBUMIN 25% 100 ML IV SCH (06:51)
[2017-06-06] MEDS: MEROPENEM 1gm/20ml IVPUSH 20 ML IV SCH ×3 (06:51→21:20)
[2017-06-06 08:22] LABS: Calcium 8.4 mg/dL (8.5-10.1); Potassium 3.6 mmol/L (3.5-5.1)
[2017-06-06] MEDS: MULTIPLE VITAMIN TAB PO SCH (11:17)
[2017-06-06] MEDS: ASCORBIC ACID 500 MG TAB PO SCH ×2 (11:17→21:22)
[2017-06-06] MEDS: DIPHENOXYLATE W/ATROPINE 2.5 MG TAB PO PRN ×2 (11:17→19:53)
[2017-06-06] MEDS: ZINC SULFATE 220 MG CAP PO SCH ×2 (11:17→21:21)
[2017-06-06] MEDS: FAMOTIDINE 20 MG TAB PO SCH ×2 (11:21→21:21)
[2017-06-06] MEDS ORDERED: FAMOTIDINE 20 MG TAB PO ONE (11:30)
[2017-06-06] MEDS: BOOST 8 ounces PO SCH ×3 (11:36→17:41)
[2017-06-06] MEDS: PRO-STAT 64 30ML PO SCH ×2 (11:36→17:41)
[2017-06-06] MEDS: SODIUM CHLOR 0.9% PF (SALINE LOCK) 10ML VIAL/SYR IV SCH ×2 (11:37→21:22)
[2017-06-06] MEDS: APIXABAN 5 MG TAB PO SCH ×2 (11:42→21:22)
[2017-06-06] MEDS ORDERED: VANCOMYCIN 750 MG in D5W 5% 250 ML IV SCH (12:00)
[2017-06-06] MEDS: AMIKACIN 1,500 MG in D5W 5% 100 ML IV SCH (16:55)
[2017-06-06] MEDS: LORazepam 0.5 MG TAB PO PRN (21:37)
[2017-06-06] MEDS ORDERED: APIXABAN 5 MG TAB PO SCH (22:00)
[2017-06-07] VITALS (7 sets, daily range): BP systolic 90–97; BP diastolic 44–76
[2017-06-07] MEDS: MEROPENEM 1gm/20ml IVPUSH 20 ML IV SCH ×3 (05:43→22:06)
[2017-06-07] MEDS ORDERED: VANCOMYCIN 750 MG in D5W 5% 250 ML IV SCH (06:00)
[2017-06-07 06:02] LABS: Basophils # (auto) 0.1 uL; Eosinophils # (auto) 0.1 uL; Eosinophils % (auto) 2.3 % (0.0-7.0); Hematocrit 32.7 % (41.0-53.0); Hemoglobin 10.7 g/dL (13.5-17.5); Lymphocytes # (auto) 1.3 uL; Lymphocytes % (auto) 20.4 % (10.0-50.0); Mean Corpuscular Hemoglobin 31.3 pg (28.0-32.0); Mean Corpuscular Hgb Conc. 32.8 g/dL (32.0-36.0); Mean Corpuscular Volume 95.3 fL (80.0-100.0); Monocytes # (auto) 0.5 uL; Monocytes % (auto) 8.2 % (0.0-12.0); Neutrophils # (auto) 4.4 uL; Neutrophils % (auto) 68.1 % (37.0-80.0); Platelet Count (auto) 373 10^3/uL (140-450); Red Blood Cells 3.43 10^6/uL (4.5-5.90); Red Cell Distribution Width 14.8 % (11.8-14.3); White Blood Cell 6.4 10^3/uL (4.4-10.8)
[2017-06-07 06:21] LABS: BUN/Creatinine Ratio 16.7; Calcium 8.4 mg/dL (8.5-10.1); Potassium 3.7 mmol/L (3.5-5.1)
[2017-06-07] MEDS: ZINC SULFATE 220 MG CAP PO SCH ×2 (10:55→22:01)
[2017-06-07] MEDS: BOOST 8 ounces PO SCH ×3 (10:56→17:46)
[2017-06-07] MEDS: ASCORBIC ACID 500 MG TAB PO SCH ×2 (10:56→22:01)
[2017-06-07] MEDS: APIXABAN 5 MG TAB PO SCH ×2 (10:56→22:01)
[2017-06-07] MEDS: FAMOTIDINE 20 MG TAB PO SCH ×2 (10:56→22:01)
[2017-06-07] MEDS: MULTIPLE VITAMIN TAB PO SCH (10:56)
[2017-06-07] MEDS: SODIUM CHLOR 0.9% PF (SALINE LOCK) 10ML VIAL/SYR IV SCH ×2 (10:57→22:02)
[2017-06-07] MEDS: PRO-STAT 64 30ML PO SCH ×2 (10:57→17:46)
[2017-06-07] MEDS: DIPHENOXYLATE W/ATROPINE 2.5 MG TAB PO PRN ×2 (11:03→22:47)
[2017-06-07] MEDS: VANCOMYCIN 750 MG in D5W 5% 250 ML IV SCH (12:50)
[2017-06-07] MEDS: AMIKACIN 1,500 MG in D5W 5% 100 ML IV SCH (16:00)
[2017-06-07] MEDS: LORazepam 0.5 MG TAB PO PRN (22:47)
[2017-06-08] MEDS: MEROPENEM 1gm/20ml IVPUSH 20 ML IV SCH ×3 (04:57→22:05)
[2017-06-08 05:00] VITALS: BP 97/56
[2017-06-08 05:25] LABS: Calcium 8.5 mg/dL (8.5-10.1); Potassium 3.6 mmol/L (3.5-5.1)
[2017-06-08 05:28] LABS: Bilirubin, Total 0.4 mg/dL (0.2-1.0); Total Protein 5.8 g/dL (6.4-8.2)
[2017-06-08] MEDS: VANCOMYCIN 750 MG in D5W 5% 250 ML IV SCH (05:45)
[2017-06-08 09:00] VITALS: BP 87/58
[2017-06-08] MEDS: PRO-STAT 64 30ML PO SCH ×2 (09:04→18:20)
[2017-06-08] MEDS: BOOST 8 ounces PO SCH ×3 (09:04→18:00)
[2017-06-08] MEDS: APIXABAN 5 MG TAB PO SCH (09:28)
[2017-06-08] MEDS: ZINC SULFATE 220 MG CAP PO SCH ×2 (09:28→22:05)
[2017-06-08] MEDS: DIPHENOXYLATE W/ATROPINE 2.5 MG TAB PO PRN ×2 (09:28→22:45)
[2017-06-08] MEDS: FAMOTIDINE 20 MG TAB PO SCH ×2 (09:28→22:05)
[2017-06-08] MEDS: MULTIPLE VITAMIN TAB PO SCH (09:29)
[2017-06-08] MEDS: ASCORBIC ACID 500 MG TAB PO SCH ×2 (09:29→22:05)
[2017-06-08] MEDS: SODIUM CHLOR 0.9% PF (SALINE LOCK) 10ML VIAL/SYR IV SCH ×2 (09:31→22:05)
[2017-06-08 13:00] VITALS: BP 91/57
[2017-06-08] MEDS: AMIKACIN 1,500 MG in D5W 5% 100 ML IV SCH (16:53)
[2017-06-08 17:00] VITALS: BP 112/74
[2017-06-08 22:00] VITALS: BP 86/45
[2017-06-08] MEDS: ENOXAPARIN SOD 100 MG/1 ML SYRINGE SC SCH (22:05)
[2017-06-08] MEDS: LORazepam 0.5 MG TAB PO PRN (22:46)
[2017-06-09 05:00] VITALS: BP 98/48
[2017-06-09] MEDS: MEROPENEM 1gm/20ml IVPUSH 20 ML IV SCH ×3 (06:55→22:22)
[2017-06-09 07:59] LABS: Basophils # (auto) 0 uL; Basophils % (auto) 0.3 % (0.0-2.0); Eosinophils # (auto) 0.2 uL; Eosinophils % (auto) 3.4 % (0.0-7.0); Hematocrit 34.5 % (41.0-53.0); Hemoglobin 11.3 g/dL (13.5-17.5); Lymphocytes # (auto) 1.5 uL; Lymphocytes % (auto) 21.7 % (10.0-50.0); Mean Corpuscular Hemoglobin 31.2 pg (28.0-32.0); Mean Corpuscular Hgb Conc. 32.7 g/dL (32.0-36.0); Mean Corpuscular Volume 95.3 fL (80.0-100.0); Monocytes # (auto) 0.6 uL; Monocytes % (auto) 9.3 % (0.0-12.0); Neutrophils # (auto) 4.5 uL; Neutrophils % (auto) 65.3 % (37.0-80.0); Nucleated Red Blood Cells % 0.1 %; Platelet Count (auto) 393 10^3/uL (140-450); Red Blood Cells 3.62 10^6/uL (4.5-5.90); Red Cell Distribution Width 15.2 % (11.8-14.3); White Blood Cell 6.8 10^3/uL (4.4-10.8)
[2017-06-09] MEDS: BOOST 8 ounces PO SCH ×3 (08:00→18:00)
[2017-06-09] MEDS: PRO-STAT 64 30ML PO SCH ×2 (08:34→18:04)
[2017-06-09 08:43] LABS: BUN/Creatinine Ratio 22.7; Calcium 8.3 mg/dL (8.5-10.1); Potassium 3.7 mmol/L (3.5-5.1)
[2017-06-09 09:00] VITALS: BP 90/49
[2017-06-09] MEDS: MULTIPLE VITAMIN TAB PO SCH (10:00)
[2017-06-09] MEDS: ZINC SULFATE 220 MG CAP PO SCH ×2 (10:00→22:21)
[2017-06-09] MEDS: ASCORBIC ACID 500 MG TAB PO SCH ×2 (10:00→22:21)
[2017-06-09] MEDS: FAMOTIDINE 20 MG TAB PO SCH ×2 (10:00→22:21)
[2017-06-09] MEDS: SODIUM CHLOR 0.9% PF (SALINE LOCK) 10ML VIAL/SYR IV SCH ×2 (10:00→22:22)
[2017-06-09] MEDS: ENOXAPARIN SOD 100 MG/1 ML SYRINGE SC SCH ×2 (10:00→22:21)
[2017-06-09 13:00] VITALS: BP 94/66
[2017-06-09] MEDS: AMIKACIN 1,500 MG in D5W 5% 100 ML IV SCH (16:43)
[2017-06-09 17:00] VITALS: BP 92/36
[2017-06-09] MEDS: VANCOMYCIN 750 MG in D5W 5% 250 ML IV SCH ×3 (18:15)
[2017-06-09] MEDS: LORazepam 0.5 MG TAB PO PRN (22:22)
[2017-06-09] MEDS ORDERED: ALBUMIN 5% 250 ML IV ONE (22:30)
[2017-06-09 22:49] VITALS: BP 79/51
[2017-06-10 05:00] VITALS: BP 92/52
[2017-06-10] MEDS: ACETAMINOPHEN 500 MG TAB PO PRN (05:52)
[2017-06-10] MEDS: MEROPENEM 1gm/20ml IVPUSH 20 ML IV SCH ×3 (05:56→22:38)
[2017-06-10 07:29] LABS: BUN/Creatinine Ratio 23.8; Calcium 8.6 mg/dL (8.5-10.1); Potassium 3.4 mmol/L (3.5-5.1)
[2017-06-10] MEDS: BOOST 8 ounces PO SCH ×3 (08:00→18:00)
[2017-06-10 09:00] VITALS: BP 92/57
[2017-06-10] MEDS: PRO-STAT 64 30ML PO SCH (10:31)
[2017-06-10] MEDS: FAMOTIDINE 20 MG TAB PO SCH ×2 (10:59→22:33)
[2017-06-10] MEDS: ZINC SULFATE 220 MG CAP PO SCH ×2 (10:59→22:33)
[2017-06-10] MEDS: MULTIPLE VITAMIN TAB PO SCH (10:59)
[2017-06-10] MEDS: SODIUM CHLOR 0.9% PF (SALINE LOCK) 10ML VIAL/SYR IV SCH ×2 (10:59→22:34)
[2017-06-10] MEDS ORDERED: VANCOMYCIN PER PHARMACY 0 MG IV SCH (11:00)
[2017-06-10] MEDS: ENOXAPARIN SOD 100 MG/1 ML SYRINGE SC SCH ×2 (11:00→22:34)
[2017-06-10] MEDS ORDERED: POTASSIUM CHL 20 Meq TABLET PO ONE (11:00)
[2017-06-10] MEDS: ASCORBIC ACID 500 MG TAB PO SCH (11:00)
[2017-06-10] MEDS ORDERED: MORPHINE SULFATE 4 MG/ML SYR/VIAL IV PRN ×2 (11:00)
[2017-06-10 12:00] VITALS: BP 96/52
[2017-06-10] MEDS ORDERED: TPN PER PHARMACY 0 ML IV SCH (12:30)
[2017-06-10 13:50] LABS: Albumin 2.8 g/dL (3.4-5.0); Bilirubin, Direct 0.2 mg/dL (0-0.2); Bilirubin, Total 0.5 mg/dL (0.2-1.0); Magnesium 1.6 mg/dL (1.6-2.6); Phosphorus 2.6 mg/dL (2.5-4.90); Total Protein 5.9 g/dL (6.4-8.2)
[2017-06-10] MEDS: AMIKACIN 1,500 MG in D5W 5% 100 ML IV SCH (17:07)
[2017-06-10 17:10] VITALS: BP 94/55
[2017-06-10] MEDS ORDERED: DEXTROSE (50%) 50ML SYRG IV SCH (18:00)
[2017-06-10] MEDS ORDERED: TPN PER PHARMACY IV NR ×11 (20:00)
[2017-06-10] MEDS: VANCOMYCIN 750 MG in D5W 5% 250 ML IV SCH (20:14)
[2017-06-10] MEDS: ACCU-CHEK COMFORT CURVE STRIP VI SCH (20:30)
[2017-06-10] MEDS: InsuLIN REG 1unit/0.01ml Soln (100units/ml) SC SCH (20:31)
[2017-06-10] MEDS: TPN PER PHARMACY IV NR ×11 (20:55)
[2017-06-10 21:51] VITALS: BP 86/47
[2017-06-10] MEDS: LORazepam 0.5 MG TAB PO PRN (23:00)
[2017-06-11] MEDS: ACCU-CHEK COMFORT CURVE STRIP VI SCH ×4 (00:25→18:32)
[2017-06-11] MEDS: HYDROcodone-ACET 5/325MG TAB PO PRN ×2 (03:24→21:48)
[2017-06-11 05:00] VITALS: BP 86/41
[2017-06-11] MEDS: MEROPENEM 1gm/20ml IVPUSH 20 ML IV SCH ×3 (05:55→21:49)
[2017-06-11] MEDS: InsuLIN REG 1unit/0.01ml Soln (100units/ml) SC SCH ×4 (05:55→18:00)
[2017-06-11 09:31] VITALS: BP 87/49
[2017-06-11 10:16] LABS: Albumin 2.6 g/dL (3.4-5.0); Bilirubin, Total 0.4 mg/dL (0.2-1.0); Phosphorus 2.7 mg/dL (2.5-4.90); Potassium 3.8 mmol/L (3.5-5.1); Pre Albumin 7.6 mg/dL (20.0-40.0); Total Protein 5.8 g/dL (6.4-8.2)
[2017-06-11] MEDS: FAMOTIDINE 20 MG TAB PO SCH ×2 (10:37→21:48)
[2017-06-11] MEDS: ENOXAPARIN SOD 100 MG/1 ML SYRINGE SC SCH (10:37)
[2017-06-11] MEDS: ZINC SULFATE 220 MG CAP PO SCH ×2 (10:37→21:48)
[2017-06-11] MEDS: BOOST 8 ounces PO SCH ×3 (10:37→18:31)
[2017-06-11] MEDS: SODIUM CHLOR 0.9% PF (SALINE LOCK) 10ML VIAL/SYR IV SCH ×2 (10:37→21:48)
[2017-06-11 14:10] VITALS: BP 90/52
[2017-06-11 14:20] LABS: Basophils # (auto) 0 uL; Eosinophils # (auto) 0.2 uL; Hemoglobin 11.4 g/dL (13.5-17.5); Lymphocytes # (auto) 0.9 uL; Monocytes # (auto) 0.6 uL; Neutrophils # (auto) 6.3 uL; Nucleated Red Blood Cells % 0.1 %; White Blood Cell 8.1 10^3/uL (4.4-10.8)
[2017-06-11 14:23] LABS: Basophils % (auto) 0.4 % (0.0-2.0); Eosinophils % (auto) 2.3 % (0.0-7.0); Hematocrit 36.9 % (41.0-53.0); Lymphocytes % (auto) 11.3 % (10.0-50.0); Mean Corpuscular Hemoglobin 32.1 pg (28.0-32.0); Mean Corpuscular Hgb Conc. 30.9 g/dL (32.0-36.0); Mean Corpuscular Volume 103.6 fL (80.0-100.0); Platelet Count (auto) 351 10^3/uL (140-450); Red Blood Cells 3.56 10^6/uL (4.5-5.90); Red Cell Distribution Width 16.8 % (11.8-14.3)
[2017-06-11] MEDS: AMIKACIN 1,500 MG in D5W 5% 100 ML IV SCH (16:00)
[2017-06-11] MEDS: TPN PER PHARMACY IV NR ×11 (16:52)
[2017-06-11 17:23] VITALS: BP 100/57
[2017-06-11] MEDS: VANCOMYCIN 750 MG in D5W 5% 250 ML IV SCH (18:31)
[2017-06-11] MEDS: APIXABAN 5 MG TAB PO SCH (21:47)
[2017-06-11] MEDS: DIPHENOXYLATE W/ATROPINE 2.5 MG TAB PO PRN (21:48)
[2017-06-11] MEDS: LORazepam 0.5 MG TAB PO PRN (21:57)
[2017-06-11 22:00] VITALS: BP 89/55
[2017-06-12 05:00] VITALS: BP 90/50
[2017-06-12] MEDS: MEROPENEM 1gm/20ml IVPUSH 20 ML IV SCH ×3 (06:20→21:35)
[2017-06-12] MEDS: BOOST 8 ounces PO SCH ×2 (08:00→18:00)
[2017-06-12 09:00] VITALS: BP 93/51
[2017-06-12] MEDS: APIXABAN 5 MG TAB PO SCH ×2 (10:33→21:36)
[2017-06-12] MEDS: ZINC SULFATE 220 MG CAP PO SCH ×2 (10:33→21:36)
[2017-06-12] MEDS: FAMOTIDINE 20 MG TAB PO SCH ×2 (10:33→21:36)
[2017-06-12 12:45] LABS: Basophils # (auto) 0.1 uL; Basophils % (auto) 1.1 % (0.0-2.0); Eosinophils # (auto) 0.1 uL; Eosinophils % (auto) 1.5 % (0.0-7.0); Hematocrit 35.4 % (41.0-53.0); Hemoglobin 11.7 g/dL (13.5-17.5); Mean Corpuscular Hemoglobin 31.3 pg (28.0-32.0); Mean Corpuscular Volume 94.9 fL (80.0-100.0); Monocytes # (auto) 0.8 uL; Monocytes % (auto) 8.8 % (0.0-12.0); Neutrophils # (auto) 7.3 uL; Neutrophils % (auto) 77.6 % (37.0-80.0); Platelet Count (auto) 356 10^3/uL (140-450); Red Blood Cells 3.73 10^6/uL (4.5-5.90); Red Cell Distribution Width 15.1 % (11.8-14.3); White Blood Cell 9.4 10^3/uL (4.4-10.8)
[2017-06-12 12:49] LABS: Calcium 8.1 mg/dL (8.5-10.1); Potassium 3.9 mmol/L (3.5-5.1)
[2017-06-12 13:00] VITALS: BP 89/57
[2017-06-12] MEDS ORDERED: ACETAMINOPHEN 500 MG TAB PO PRN (13:00)
[2017-06-12] MEDS ORDERED: NITROGLYCERIN 0.4 MG SL TAB SL PRN (13:00)
[2017-06-12] MEDS ORDERED: AMIKACIN 0 ML IV SCH (13:00)
[2017-06-12] MEDS: SODIUM CHLOR 0.9% PF (SALINE LOCK) 10ML VIAL/SYR IV SCH ×2 (13:10→21:37)
[2017-06-12 17:00] VITALS: BP 93/61
[2017-06-12] MEDS: AMIKACIN 1,500 MG in D5W 5% 100 ML IV SCH (18:32)
[2017-06-12] MEDS: LORazepam 0.5 MG TAB PO PRN (21:36)
[2017-06-12] MEDS: PROMETHAZINE HCL 25 MG/ML 1ML IV PRN (21:36)
[2017-06-12] MEDS: HYDROcodone-ACET 5/325MG TAB PO PRN (21:36)
[2017-06-12 22:00] VITALS: BP 95/59
[2017-06-12] MEDS: DIPHENOXYLATE W/ATROPINE 2.5 MG TAB PO PRN (22:26)
[2017-06-13 04:49] VITALS: BP 103/58
[2017-06-13] MEDS: MEROPENEM 1gm/20ml IVPUSH 20 ML IV SCH ×3 (06:26→22:07)
[2017-06-13] MEDS: BOOST 8 ounces PO SCH ×3 (08:00→18:00)
[2017-06-13 09:00] VITALS: BP 81/49
[2017-06-13] MEDS: SODIUM CHLOR 0.9% PF (SALINE LOCK) 10ML VIAL/SYR IV SCH ×2 (10:00→22:07)
[2017-06-13] MEDS: APIXABAN 5 MG TAB PO SCH ×2 (10:42→22:09)
[2017-06-13] MEDS: ZINC SULFATE 220 MG CAP PO SCH ×2 (10:42→22:08)
[2017-06-13] MEDS: DIPHENOXYLATE W/ATROPINE 2.5 MG TAB PO PRN ×2 (10:43→22:09)
[2017-06-13] MEDS: FAMOTIDINE 20 MG TAB PO SCH ×2 (10:43→22:08)
[2017-06-13 13:00] VITALS: BP 82/43
[2017-06-13] MEDS: AMIKACIN 1,500 MG in D5W 5% 100 ML IV SCH (18:00)
[2017-06-13 22:00] VITALS: BP 102/70
[2017-06-13] MEDS ORDERED: APIXABAN 5 MG TAB PO SCH (22:00)
[2017-06-13] MEDS: HYDROcodone-ACET 5/325MG TAB PO PRN (22:08)
[2017-06-13] MEDS: PROMETHAZINE HCL 25 MG/ML 1ML IV PRN (22:09)
[2017-06-13] MEDS: LORazepam 0.5 MG TAB PO PRN (22:10)
[2017-06-14 05:00] VITALS: BP 83/49
[2017-06-14] MEDS: MEROPENEM 1gm/20ml IVPUSH 20 ML IV SCH ×2 (06:28→14:20)
[2017-06-14] MEDS: HYDROcodone-ACET 5/325MG TAB PO PRN (06:28)
[2017-06-14] MEDS: DIPHENOXYLATE W/ATROPINE 2.5 MG TAB PO PRN ×2 (06:28→22:38)
[2017-06-14] MEDS: BOOST 8 ounces PO SCH ×3 (08:00→18:08)
[2017-06-14 09:00] VITALS: BP 103/59
[2017-06-14] MEDS: SODIUM CHLOR 0.9% PF (SALINE LOCK) 10ML VIAL/SYR IV SCH ×2 (10:00→22:36)
[2017-06-14] MEDS: FAMOTIDINE 20 MG TAB PO SCH ×2 (10:58→22:37)
[2017-06-14] MEDS: APIXABAN 5 MG TAB PO SCH ×2 (10:58→22:37)
[2017-06-14] MEDS: ZINC SULFATE 220 MG CAP PO SCH ×2 (10:58→22:37)
[2017-06-14 11:31] LABS: Basophils # (auto) 0 uL; Basophils % (auto) 0.3 % (0.0-2.0); Eosinophils # (auto) 0.2 uL; Eosinophils % (auto) 2.3 % (0.0-7.0); Hemoglobin 11.4 g/dL (13.5-17.5); Lymphocytes # (auto) 1.3 uL; Lymphocytes % (auto) 15.3 % (10.0-50.0); Mean Corpuscular Hemoglobin 30.8 pg (28.0-32.0); Mean Corpuscular Hgb Conc. 32.5 g/dL (32.0-36.0); Mean Corpuscular Volume 94.6 fL (80.0-100.0); Monocytes # (auto) 0.8 uL; Monocytes % (auto) 8.9 % (0.0-12.0); Neutrophils # (auto) 6.3 uL; Neutrophils % (auto) 73.2 % (37.0-80.0); Nucleated Red Blood Cells % 0.1 %; Platelet Count (auto) 341 10^3/uL (140-450); Red Cell Distribution Width 15.6 % (11.8-14.3); White Blood Cell 8.6 10^3/uL (4.4-10.8)
[2017-06-14 11:48] LABS: BUN/Creatinine Ratio 24.1; Calcium 7.7 mg/dL (8.5-10.1); Potassium 3.6 mmol/L (3.5-5.1)
[2017-06-14 13:00] VITALS: BP 86/55
[2017-06-14] MEDS: PROMETHAZINE HCL 25 MG/ML 1ML IV PRN ×2 (14:19→22:38)
[2017-06-14] MEDS: cefTRIAXone 1GM/10ml IVPUSH 10 ML IV SCH (14:45)
[2017-06-14 17:00] VITALS: BP 118/65
[2017-06-14] MEDS: AMIKACIN 1,500 MG in D5W 5% 100 ML IV SCH (18:08)
[2017-06-14 22:00] VITALS: BP 89/55
[2017-06-14] MEDS: LORazepam 0.5 MG TAB PO PRN (22:39)
[2017-06-15] MEDS: HYDROcodone-ACET 5/325MG TAB PO PRN (01:24)
[2017-06-15 06:02] VITALS: BP 94/45
[2017-06-15 09:00] VITALS: BP 83/51
[2017-06-15] MEDS: FAMOTIDINE 20 MG TAB PO SCH ×2 (10:42→21:43)
[2017-06-15] MEDS: ZINC SULFATE 220 MG CAP PO SCH ×2 (10:42→21:42)
[2017-06-15] MEDS: cefTRIAXone 1GM/10ml IVPUSH 10 ML IV SCH (10:42)
[2017-06-15] MEDS: APIXABAN 5 MG TAB PO SCH ×2 (10:43→21:42)
[2017-06-15] MEDS: BOOST 8 ounces PO SCH ×3 (10:43→17:54)
[2017-06-15] MEDS: SODIUM CHLOR 0.9% PF (SALINE LOCK) 10ML VIAL/SYR IV SCH ×2 (10:43→21:42)
[2017-06-15 13:00] VITALS: BP 83/52
[2017-06-15 17:00] VITALS: BP 81/43
[2017-06-15] MEDS: AMIKACIN 1,500 MG in D5W 5% 100 ML IV SCH (17:53)
[2017-06-15 21:30] VITALS: BP 87/48
[2017-06-15] MEDS: LORazepam 0.5 MG TAB PO PRN (21:49)
[2017-06-16 05:00] VITALS: BP 85/37
[2017-06-16 09:00] VITALS: BP 95/64
[2017-06-16] MEDS: SODIUM CHLOR 0.9% PF (SALINE LOCK) 10ML VIAL/SYR IV SCH ×2 (09:23→21:52)
[2017-06-16] MEDS: APIXABAN 5 MG TAB PO SCH ×2 (09:23→21:53)
[2017-06-16] MEDS: cefTRIAXone 1GM/10ml IVPUSH 10 ML IV SCH (09:23)
[2017-06-16] MEDS: ZINC SULFATE 220 MG CAP PO SCH ×2 (09:23→21:53)
[2017-06-16] MEDS: BOOST 8 ounces PO SCH ×3 (09:23→18:17)
[2017-06-16] MEDS: FAMOTIDINE 20 MG TAB PO SCH ×2 (09:23→21:53)
[2017-06-16] MEDS: DIPHENOXYLATE W/ATROPINE 2.5 MG TAB PO PRN (09:31)
[2017-06-16 13:00] VITALS: BP 95/71
[2017-06-16 17:06] VITALS: BP 84/47
[2017-06-16] MEDS: AMIKACIN 1,500 MG in D5W 5% 100 ML IV SCH (18:16)
[2017-06-16] MEDS: LORazepam 0.5 MG TAB PO PRN (21:53)
[2017-06-16 22:10] VITALS: BP 96/62
[2017-06-17 05:23] VITALS: BP 89/49
[2017-06-17 08:00] VITALS: BP 91/54
[2017-06-17] MEDS: cefTRIAXone 1GM/10ml IVPUSH 10 ML IV SCH (10:00)
[2017-06-17] MEDS: BOOST 8 ounces PO SCH ×3 (10:01→19:04)
[2017-06-17] MEDS: DIPHENOXYLATE W/ATROPINE 2.5 MG TAB PO PRN (10:01)
[2017-06-17] MEDS: APIXABAN 5 MG TAB PO SCH ×2 (10:01→21:40)
[2017-06-17] MEDS: SODIUM CHLOR 0.9% PF (SALINE LOCK) 10ML VIAL/SYR IV SCH ×2 (10:01→21:39)
[2017-06-17] MEDS: ZINC SULFATE 220 MG CAP PO SCH ×2 (10:01→21:40)
[2017-06-17] MEDS: FAMOTIDINE 20 MG TAB PO SCH ×2 (10:01→21:41)
[2017-06-17 11:19] LABS: Hematocrit 34.2 % (41.0-53.0); Hemoglobin 11.3 g/dL (13.5-17.5); Mean Corpuscular Hemoglobin 31.3 pg (28.0-32.0); Mean Corpuscular Volume 94.9 fL (80.0-100.0); Platelet Count (auto) 349 10^3/uL (140-450); Red Cell Distribution Width 15.6 % (11.8-14.3); White Blood Cell 8.4 10^3/uL (4.4-10.8)
[2017-06-17 11:32] LABS: Calcium 7.8 mg/dL (8.5-10.1); Potassium 3.7 mmol/L (3.5-5.1)
[2017-06-17 12:00] VITALS: BP 96/59
[2017-06-17 12:11] LABS: Band Neutrophils % (manual) 0
[2017-06-17 12:12] LABS: Basophils % (manual) 0 (0.0-2.0); Blast Cells 0; Metamyelocytes % 0; Myelocytes % 0; Promyelocytes % 0; Reactive Lymphocytes 0
[2017-06-17] MEDS ORDERED: MORPHINE SULFATE 4 MG/ML SYR/VIAL IV PRN (13:00)
[2017-06-17] MEDS: PROMETHAZINE HCL 25 MG/ML 1ML IV PRN (13:16)
[2017-06-17 14:35] LABS: Eosinophils % (manual) 1 (0-7); Lymphocytes % (manual) 8 (10.0-50.0); Monocytes % (manual) 9 (0-12)
[2017-06-17 16:55] VITALS: BP 92/58
[2017-06-17] MEDS: AMIKACIN 1,500 MG in D5W 5% 100 ML IV SCH (19:04)
[2017-06-17 20:00] VITALS: BP 83/47
[2017-06-17 21:30] VITALS: BP 83/47
[2017-06-17] MEDS: LORazepam 0.5 MG TAB PO PRN (22:56)
[2017-06-18 05:00] VITALS: BP 86/55
[2017-06-18] MEDS: BOOST 8 ounces PO SCH ×3 (08:46→16:40)
[2017-06-18] MEDS: cefTRIAXone 1GM/10ml IVPUSH 10 ML IV SCH (08:47)
[2017-06-18] MEDS: HYDROcodone-ACET 5/325MG TAB PO PRN (08:48)
[2017-06-18] MEDS: ZINC SULFATE 220 MG CAP PO SCH ×2 (08:48→21:25)
[2017-06-18] MEDS: APIXABAN 5 MG TAB PO SCH ×2 (08:48→21:25)
[2017-06-18] MEDS: DIPHENOXYLATE W/ATROPINE 2.5 MG TAB PO PRN (08:49)
[2017-06-18] MEDS: FAMOTIDINE 20 MG TAB PO SCH ×2 (08:49→21:26)
[2017-06-18] MEDS: SODIUM CHLOR 0.9% PF (SALINE LOCK) 10ML VIAL/SYR IV SCH ×2 (08:50→21:26)
[2017-06-18 09:00] VITALS: BP 110/51
[2017-06-18 09:47] LABS: Albumin 2.3 g/dL (3.4-5.0); BUN/Creatinine Ratio 25.4; Bilirubin, Total 0.5 mg/dL (0.2-1.0); Calcium 7.7 mg/dL (8.5-10.1); Potassium 3.9 mmol/L (3.5-5.1); Total Protein 6.2 g/dL (6.4-8.2)
[2017-06-18 13:00] VITALS: BP 93/53
[2017-06-18] MEDS: AMIKACIN 1,500 MG in D5W 5% 100 ML IV SCH (16:40)
[2017-06-18 17:05] VITALS: BP 85/61
[2017-06-18 22:00] VITALS: BP 87/51
[2017-06-19 06:04] VITALS: BP 84/38
[2017-06-19 07:28] VITALS: BP 90/46
[2017-06-19] MEDS: BOOST 8 ounces PO SCH ×3 (10:23→18:05)
[2017-06-19] MEDS: cefTRIAXone 1GM/10ml IVPUSH 10 ML IV SCH (10:23)
[2017-06-19] MEDS: SODIUM CHLOR 0.9% PF (SALINE LOCK) 10ML VIAL/SYR IV SCH ×2 (10:23→21:22)
[2017-06-19] MEDS: HYDROcodone-ACET 5/325MG TAB PO PRN (10:24)
[2017-06-19] MEDS: FAMOTIDINE 20 MG TAB PO SCH ×2 (10:24→21:23)
[2017-06-19] MEDS: APIXABAN 5 MG TAB PO SCH ×2 (10:24→21:23)
[2017-06-19] MEDS: DIPHENOXYLATE W/ATROPINE 2.5 MG TAB PO PRN (10:24)
[2017-06-19] MEDS: ZINC SULFATE 220 MG CAP PO SCH ×2 (10:24→21:23)
[2017-06-19 11:49] VITALS: BP 87/50
[2017-06-19] MEDS ORDERED: AMIKACIN 0 ML IV SCH (12:30)
[2017-06-19] MEDS ORDERED: CATHFLO ACTIVASE (ALTEPLASE) 2 MG VIAL IV ONE ×2 (12:30→14:00)
[2017-06-19] MEDS: PROMETHAZINE HCL 25 MG/ML 1ML IV PRN (15:19)
[2017-06-19 16:49] VITALS: BP 88/54
[2017-06-19] MEDS: AMIKACIN 1,500 MG in D5W 5% 100 ML IV SCH (18:05)
[2017-06-19 20:00] VITALS: BP 89/57
[2017-06-19] MEDS: LORazepam 0.5 MG TAB PO PRN (21:23)
[2017-06-19 22:12] VITALS: BP 89/57
[2017-06-20 05:35] VITALS: BP 95/50
[2017-06-20] MEDS: BOOST 8 ounces PO SCH ×3 (08:00→18:00)
[2017-06-20 09:00] VITALS: BP 98/60
[2017-06-20] MEDS: ZINC SULFATE 220 MG CAP PO SCH ×2 (09:51→21:36)
[2017-06-20] MEDS: HYDROcodone-ACET 5/325MG TAB PO PRN (09:51)
[2017-06-20] MEDS: FAMOTIDINE 20 MG TAB PO SCH ×2 (09:51→21:36)
[2017-06-20] MEDS: APIXABAN 5 MG TAB PO SCH ×2 (09:51→21:36)
[2017-06-20] MEDS: SODIUM CHLOR 0.9% PF (SALINE LOCK) 10ML VIAL/SYR IV SCH ×2 (09:52→21:37)
[2017-06-20] MEDS: DIPHENOXYLATE W/ATROPINE 2.5 MG TAB PO PRN (09:52)
[2017-06-20 13:00] VITALS: BP 101/48
[2017-06-20 17:00] VITALS: BP 79/43
[2017-06-20 20:00] VITALS: BP 82/50
[2017-06-20] MEDS: LORazepam 0.5 MG TAB PO PRN (21:36)
[2017-06-20 22:00] VITALS: BP 82/50
[2017-06-21 05:00] VITALS: BP 82/49
[2017-06-21] MEDS ORDERED: AMIKACIN 1,500 MG in D5W 5% 100 ML IV SCH (06:00)
[2017-06-21 08:00] VITALS: BP 93/58
[2017-06-21 09:00] VITALS: BP 93/58
[2017-06-21] MEDS: BOOST 8 ounces PO SCH ×4 (09:24→22:23)
[2017-06-21] MEDS: APIXABAN 5 MG TAB PO SCH ×2 (10:15→22:23)
[2017-06-21] MEDS: FAMOTIDINE 20 MG TAB PO SCH (10:15)
[2017-06-21] MEDS: ZINC SULFATE 220 MG CAP PO SCH ×2 (10:15→22:22)
[2017-06-21] MEDS: SODIUM CHLOR 0.9% PF (SALINE LOCK) 10ML VIAL/SYR IV SCH ×2 (10:15→22:22)
[2017-06-21] MEDS: HYDROcodone-ACET 5/325MG TAB PO PRN ×2 (10:16→16:13)
[2017-06-21 11:08] LABS: Basophils # (auto) 0 uL; Basophils % (auto) 0.2 % (0.0-2.0); Eosinophils # (auto) 0.2 uL; Eosinophils % (auto) 2.2 % (0.0-7.0); Hematocrit 34.2 % (41.0-53.0); Hemoglobin 11.2 g/dL (13.5-17.5); Lymphocytes # (auto) 1.1 uL; Mean Corpuscular Hemoglobin 30.9 pg (28.0-32.0); Mean Corpuscular Hgb Conc. 32.8 g/dL (32.0-36.0); Mean Corpuscular Volume 94.1 fL (80.0-100.0); Monocytes # (auto) 0.8 uL; Monocytes % (auto) 10.2 % (0.0-12.0); Neutrophils # (auto) 5.5 uL; Neutrophils % (auto) 72.4 % (37.0-80.0); Platelet Count (auto) 366 10^3/uL (140-450); Red Blood Cells 3.64 10^6/uL (4.5-5.90); Red Cell Distribution Width 15.6 % (11.8-14.3); White Blood Cell 7.6 10^3/uL (4.4-10.8)
[2017-06-21 11:27] LABS: BUN/Creatinine Ratio 29.8; Calcium 7.5 mg/dL (8.5-10.1)
[2017-06-21 13:00] VITALS: BP 90/68
[2017-06-21] MEDS: FLORASTOR (S. BOULARDII) 250 MG CAP PO SCH (13:43)
[2017-06-21] MEDS: metroNIDAZOLE 500 MG TAB PO SCH ×2 (13:43→22:25)
[2017-06-21 17:00] VITALS: BP 84/46
[2017-06-21 22:00] VITALS: BP 84/50
[2017-06-21] MEDS: LORazepam 0.5 MG TAB PO PRN (22:24)
[2017-06-22 05:00] VITALS: BP 81/41
[2017-06-22] MEDS: metroNIDAZOLE 500 MG TAB PO SCH ×3 (07:08→22:46)
[2017-06-22 09:00] VITALS: BP 86/48
[2017-06-22] MEDS: SODIUM CHLOR 0.9% PF (SALINE LOCK) 10ML VIAL/SYR IV SCH ×2 (10:00→22:44)
[2017-06-22] MEDS: FLORASTOR (S. BOULARDII) 250 MG CAP PO SCH (10:38)
[2017-06-22] MEDS: ZINC SULFATE 220 MG CAP PO SCH ×2 (10:38→22:44)
[2017-06-22] MEDS: APIXABAN 5 MG TAB PO SCH ×2 (10:38→22:46)
[2017-06-22] MEDS: BOOST 8 ounces PO SCH ×2 (12:00→18:00)
[2017-06-22 13:00] VITALS: BP 81/46
[2017-06-22 17:01] VITALS: BP 85/53
[2017-06-22] MEDS: PROMETHAZINE HCL 25 MG/ML 1ML IV PRN (22:47)
[2017-06-22] MEDS: LORazepam 0.5 MG TAB PO PRN (22:47)
[2017-06-22 22:58] VITALS: BP 86/48
[2017-06-23] MEDS: PROMETHAZINE HCL 25 MG/ML 1ML IV PRN (04:32)
[2017-06-23 04:55] VITALS: BP 80/54
[2017-06-23] MEDS: metroNIDAZOLE 500 MG TAB PO SCH ×3 (05:07→22:02)
[2017-06-23] MEDS: HYDROcodone-ACET 5/325MG TAB PO PRN (06:53)
[2017-06-23] MEDS: DIPHENOXYLATE W/ATROPINE 2.5 MG TAB PO PRN (08:35)
[2017-06-23 09:00] VITALS: BP 69/49
[2017-06-23] MEDS: BOOST 8 ounces PO SCH ×3 (09:02→18:13)
[2017-06-23] MEDS: HYDROcodone-ACET 5/325MG TAB PO ONE ×2 (10:00→10:06)
[2017-06-23] MEDS: APIXABAN 5 MG TAB PO SCH ×2 (10:05→22:02)
[2017-06-23] MEDS: SODIUM CHLOR 0.9% PF (SALINE LOCK) 10ML VIAL/SYR IV SCH ×2 (10:05→22:02)
[2017-06-23] MEDS: FLORASTOR (S. BOULARDII) 250 MG CAP PO SCH (10:05)
[2017-06-23] MEDS: ZINC SULFATE 220 MG CAP PO SCH ×2 (10:05→22:02)
[2017-06-23 10:26] VITALS: BP 77/44
[2017-06-23 13:00] VITALS: BP 69/44
[2017-06-23 17:00] VITALS: BP 81/46
[2017-06-23] MEDS: PRO-STAT 64 30ML PO SCH (18:12)
[2017-06-23 22:00] VITALS: BP 93/47
[2017-06-23] MEDS: LORazepam 0.5 MG TAB PO PRN (22:03)
[2017-06-24] MEDS: metroNIDAZOLE 500 MG TAB PO SCH (04:53)
[2017-06-24] MEDS: PROMETHAZINE HCL 25 MG/ML 1ML IV PRN ×2 (04:54→09:57)
[2017-06-24 05:00] VITALS: BP 90/51
[2017-06-24 08:00] VITALS: BP 89/50
[2017-06-24] MEDS: DIPHENOXYLATE W/ATROPINE 2.5 MG TAB PO PRN (09:05)
[2017-06-24] MEDS: APIXABAN 5 MG TAB PO SCH ×2 (09:56→22:22)
[2017-06-24] MEDS: FLORASTOR (S. BOULARDII) 250 MG CAP PO SCH (09:56)
[2017-06-24] MEDS: ZINC SULFATE 220 MG CAP PO SCH ×2 (09:56→22:21)
[2017-06-24] MEDS: BOOST 8 ounces PO SCH ×3 (09:57→20:10)
[2017-06-24] MEDS: HYDROcodone-ACET 5/325MG TAB PO PRN (09:57)
[2017-06-24] MEDS: PRO-STAT 64 30ML PO SCH ×2 (09:57→20:10)
[2017-06-24] MEDS: SODIUM CHLOR 0.9% PF (SALINE LOCK) 10ML VIAL/SYR IV SCH ×2 (09:58→22:00)
[2017-06-24] MEDS ORDERED: LORazepam 0.5 MG TAB PO PRN (12:15)
[2017-06-24] MEDS ORDERED: MORPHINE SULFATE 4 MG/ML SYR/VIAL IV PRN (12:15)
[2017-06-24] MEDS ORDERED: HYDROcodone-ACET 5/325MG TAB PO PRN (12:15)
[2017-06-24 13:00] VITALS: BP 88/53
[2017-06-24] MEDS: PSYLLIUM PWD 6 GM PKG GT SCH ×2 (13:45→22:22)
[2017-06-24 17:00] VITALS: BP 80/51
[2017-06-24 20:00] VITALS: BP 85/69
[2017-06-24 21:42] VITALS: BP 85/49
[2017-06-24] MEDS: PROMETHAZINE HCL 6.25 MG/5 ML ORAL SYRUP PO PRN (22:24)
[2017-06-25] MEDS: BOOST 8 ounces PO SCH ×3 (08:31→18:59)
[2017-06-25] MEDS: PSYLLIUM PWD 6 GM PKG GT SCH ×2 (08:32→22:00)
[2017-06-25] MEDS: PRO-STAT 64 30ML PO SCH ×2 (08:34→19:00)
[2017-06-25 09:00] VITALS: BP 84/52
[2017-06-25] MEDS: SODIUM CHLOR 0.9% PF (SALINE LOCK) 10ML VIAL/SYR IV SCH ×2 (10:00→22:00)
[2017-06-25] MEDS: APIXABAN 5 MG TAB PO SCH ×2 (11:37→22:09)
[2017-06-25] MEDS: ZINC SULFATE 220 MG CAP PO SCH ×2 (11:38→22:09)
[2017-06-25] MEDS ORDERED: ACETAMINOPHEN 500 MG TAB PO PRN (11:45)
[2017-06-25] MEDS: PROMETHAZINE HCL 6.25 MG/5 ML ORAL SYRUP PO PRN ×2 (11:49→14:51)
[2017-06-25 13:00] VITALS: BP 86/54
[2017-06-25 17:08] VITALS: BP 88/56
[2017-06-25 20:00] VITALS: BP 89/48
[2017-06-25 21:48] VITALS: BP 89/48
[2017-06-26] MEDS: PROMETHAZINE HCL 6.25 MG/5 ML ORAL SYRUP PO PRN ×4 (01:57→20:41)
[2017-06-26 05:00] VITALS: BP 86/49
[2017-06-26] MEDS: BOOST 8 ounces PO SCH ×3 (08:03→18:10)
[2017-06-26] MEDS: PRO-STAT 64 30ML PO SCH ×2 (08:04→18:10)
[2017-06-26 09:00] VITALS: BP 93/54
[2017-06-26] MEDS: PSYLLIUM PWD 6 GM PKG GT SCH ×2 (10:00→22:00)
[2017-06-26] MEDS: SODIUM CHLOR 0.9% PF (SALINE LOCK) 10ML VIAL/SYR IV SCH ×2 (11:08→21:23)
[2017-06-26] MEDS: ZINC SULFATE 220 MG CAP PO SCH ×2 (11:08→22:05)
[2017-06-26] MEDS: APIXABAN 5 MG TAB PO SCH ×2 (11:08→22:05)
[2017-06-26 12:55] VITALS: BP 88/64
[2017-06-26] MEDS ORDERED: PANTOPRAZOLE 40 MG TAB PO ONE (13:15)
[2017-06-26 16:58] VITALS: BP 84/44
[2017-06-26 22:00] VITALS: BP 91/50
[2017-06-27] MEDS: PROMETHAZINE HCL 6.25 MG/5 ML ORAL SYRUP PO PRN ×5 (03:10→22:16)
[2017-06-27 05:30] VITALS: BP 92/56
[2017-06-27 06:08] LABS: BUN/Creatinine Ratio 31.3; Potassium 3.9 mmol/L (3.5-5.1)
[2017-06-27 07:15] LABS: Basophils # (auto) 0.1 uL; Basophils % (auto) 1.3 % (0.0-2.0); Eosinophils # (auto) 0.2 uL; Eosinophils % (auto) 2.3 % (0.0-7.0); Hematocrit 34.2 % (41.0-53.0); Hemoglobin 11.1 g/dL (13.5-17.5); Lymphocytes # (auto) 1.2 uL; Lymphocytes % (auto) 15.8 % (10.0-50.0); Mean Corpuscular Hemoglobin 30.5 pg (28.0-32.0); Mean Corpuscular Hgb Conc. 32.4 g/dL (32.0-36.0); Monocytes # (auto) 0.7 uL; Monocytes % (auto) 9.2 % (0.0-12.0); Neutrophils # (auto) 5.4 uL; Neutrophils % (auto) 71.4 % (37.0-80.0); Platelet Count (auto) 376 10^3/uL (140-450); Red Blood Cells 3.64 10^6/uL (4.5-5.90); Red Cell Distribution Width 15.7 % (11.8-14.3); White Blood Cell 7.5 10^3/uL (4.4-10.8)
[2017-06-27] MEDS: SODIUM CHLOR 0.9% PF (SALINE LOCK) 10ML VIAL/SYR IV SCH ×2 (07:32→22:00)
[2017-06-27] MEDS: BOOST 8 ounces PO SCH ×3 (08:17→19:33)
[2017-06-27] MEDS: PRO-STAT 64 30ML PO SCH ×2 (08:18→19:33)
[2017-06-27 09:00] VITALS: BP 93/56
[2017-06-27] MEDS ORDERED: PANTOPRAZOLE 40 MG TAB PO SCH (10:00)
[2017-06-27] MEDS: PSYLLIUM PWD 6 GM PKG GT SCH ×2 (10:00→22:00)
[2017-06-27] MEDS: APIXABAN 5 MG TAB PO SCH ×2 (10:27→22:15)
[2017-06-27] MEDS: ZINC SULFATE 220 MG CAP PO SCH ×2 (10:27→22:15)
[2017-06-27 13:00] VITALS: BP 107/64
[2017-06-27] MEDS ORDERED: PANTOPRAZOLE 40 MG TAB PO ONE (14:30)
[2017-06-27 17:00] VITALS: BP 90/49
[2017-06-27 21:55] VITALS: BP 90/52
[2017-06-27] MEDS: PANTOPRAZOLE 40 MG TAB PO SCH (22:16)
[2017-06-28 05:30] VITALS: BP 95/64
[2017-06-28] MEDS: PROMETHAZINE HCL 6.25 MG/5 ML ORAL SYRUP PO PRN (07:03)
[2017-06-28 09:00] VITALS: BP 105/72
[2017-06-28] MEDS: PRO-STAT 64 30ML PO SCH ×2 (09:43→18:32)
[2017-06-28] MEDS: BOOST 8 ounces PO SCH ×3 (09:43→18:32)
[2017-06-28] MEDS: PSYLLIUM PWD 6 GM PKG GT SCH ×2 (09:44→21:56)
[2017-06-28] MEDS: APIXABAN 5 MG TAB PO SCH ×2 (09:44→21:57)
[2017-06-28] MEDS: PANTOPRAZOLE 40 MG TAB PO SCH ×2 (09:45→21:57)
[2017-06-28] MEDS: ZINC SULFATE 220 MG CAP PO SCH ×2 (09:45→21:57)
[2017-06-28] MEDS: SODIUM CHLOR 0.9% PF (SALINE LOCK) 10ML VIAL/SYR IV SCH ×2 (09:47→21:56)
[2017-06-28 13:00] VITALS: BP 91/57
[2017-06-28] MEDS: DIPHENOXYLATE W/ATROPINE 2.5 MG TAB PO PRN (13:19)
[2017-06-28 17:00] VITALS: BP 89/44
[2017-06-28 21:35] VITALS: BP 89/44
[2017-06-29 05:11] VITALS: BP 92/49
[2017-06-29] MEDS: BOOST 8 ounces PO SCH ×3 (08:00→17:55)
[2017-06-29] MEDS: PRO-STAT 64 30ML PO SCH ×2 (08:00→17:55)
[2017-06-29 09:00] VITALS: BP 97/50
[2017-06-29] MEDS: APIXABAN 5 MG TAB PO SCH ×2 (09:44→21:52)
[2017-06-29] MEDS: SODIUM CHLOR 0.9% PF (SALINE LOCK) 10ML VIAL/SYR IV SCH ×2 (09:44→21:51)
[2017-06-29] MEDS: PSYLLIUM PWD 6 GM PKG GT SCH ×2 (09:44→21:51)
[2017-06-29] MEDS: PANTOPRAZOLE 40 MG TAB PO SCH ×2 (09:44→21:52)
[2017-06-29] MEDS: ZINC SULFATE 220 MG CAP PO SCH ×2 (09:44→21:51)
[2017-06-29 13:00] VITALS: BP 87/54
[2017-06-29 17:00] VITALS: BP 95/60
[2017-06-29 22:00] VITALS: BP 84/64
[2017-06-30] MEDS: DIPHENOXYLATE W/ATROPINE 2.5 MG TAB PO PRN (00:13)
[2017-06-30 04:41] VITALS: BP 88/55
[2017-06-30] MEDS: BOOST 8 ounces PO SCH ×3 (07:31→17:37)
[2017-06-30] MEDS: PRO-STAT 64 30ML PO SCH ×2 (07:31→17:37)
[2017-06-30 09:00] VITALS: BP 87/46
[2017-06-30] MEDS: SODIUM CHLOR 0.9% PF (SALINE LOCK) 10ML VIAL/SYR IV SCH ×2 (10:00→22:00)
[2017-06-30] MEDS: PSYLLIUM PWD 6 GM PKG GT SCH ×2 (11:47→22:00)
[2017-06-30] MEDS: ZINC SULFATE 220 MG CAP PO SCH ×2 (11:48→22:24)
[2017-06-30] MEDS: APIXABAN 5 MG TAB PO SCH ×2 (11:48→22:25)
[2017-06-30] MEDS: PANTOPRAZOLE 40 MG TAB PO SCH ×2 (11:48→22:25)
[2017-06-30 13:00] VITALS: BP 87/47
[2017-06-30 16:30] VITALS: BP 95/50
[2017-06-30 21:32] VITALS: BP 86/49
[2017-07-01 04:59] VITALS: BP 82/47
[2017-07-01 07:45] LABS: Basophils # (auto) 0.1 uL; Basophils % (auto) 0.8 % (0.0-2.0); Eosinophils # (auto) 0.3 uL; Eosinophils % (auto) 3.1 % (0.0-7.0); Hematocrit 33.3 % (41.0-53.0); Lymphocytes # (auto) 1.2 uL; Lymphocytes % (auto) 14.3 % (10.0-50.0); Mean Corpuscular Hemoglobin 30.9 pg (28.0-32.0); Mean Corpuscular Volume 93.6 fL (80.0-100.0); Monocytes # (auto) 0.8 uL; Monocytes % (auto) 9.6 % (0.0-12.0); Neutrophils # (auto) 5.9 uL; Neutrophils % (auto) 72.2 % (37.0-80.0); Platelet Count (auto) 391 10^3/uL (140-450); Red Blood Cells 3.56 10^6/uL (4.5-5.90); White Blood Cell 8.2 10^3/uL (4.4-10.8)
[2017-07-01 07:58] LABS: BUN/Creatinine Ratio 41.2; Calcium 7.7 mg/dL (8.5-10.1); Potassium 4.2 mmol/L (3.5-5.1)
[2017-07-01] MEDS: BOOST 8 ounces PO SCH ×3 (08:00→17:56)
[2017-07-01] MEDS: PRO-STAT 64 30ML PO SCH ×2 (08:00→11:29)
[2017-07-01 09:00] VITALS: BP 86/52
[2017-07-01] MEDS: SODIUM CHLOR 0.9% PF (SALINE LOCK) 10ML VIAL/SYR IV SCH (09:02)
[2017-07-01] MEDS: DIPHENOXYLATE W/ATROPINE 2.5 MG TAB PO PRN (09:04)
[2017-07-01] MEDS: ZINC SULFATE 220 MG CAP PO SCH ×2 (09:04→21:45)
[2017-07-01] MEDS: PANTOPRAZOLE 40 MG TAB PO SCH ×2 (09:04→21:45)
[2017-07-01] MEDS: APIXABAN 5 MG TAB PO SCH ×2 (09:04→21:45)
[2017-07-01] MEDS: PSYLLIUM PWD 6 GM PKG PO SCH ×2 (09:05→21:55)
[2017-07-01] MEDS ORDERED: MORPHINE SULFATE 4 MG/ML SYR/VIAL IV PRN (11:30)
[2017-07-01 13:25] VITALS: BP 91/44
[2017-07-01 16:44] VITALS: BP 95/57
[2017-07-01 22:00] VITALS: BP 94/33
[2017-07-02 05:00] VITALS: BP 88/40
[2017-07-02] MEDS: BOOST 8 ounces PO SCH ×3 (08:00→17:47)
[2017-07-02] MEDS: PRO-STAT 64 30ML PO SCH ×2 (08:00→17:47)
[2017-07-02 09:00] VITALS: BP 80/51
[2017-07-02] MEDS: PANTOPRAZOLE 40 MG TAB PO SCH ×2 (09:55→21:36)
[2017-07-02] MEDS: APIXABAN 5 MG TAB PO SCH ×2 (09:55→21:36)
[2017-07-02] MEDS: ZINC SULFATE 220 MG CAP PO SCH ×2 (09:55→21:36)
[2017-07-02] MEDS: HYDROcodone-ACET 5/325MG TAB PO PRN (09:56)
[2017-07-02] MEDS: PSYLLIUM PWD 6 GM PKG PO SCH ×2 (09:56→21:36)
[2017-07-02] MEDS: MULTIPLE VITAMIN TAB PO SCH (10:53)
[2017-07-02] MEDS: ASCORBIC ACID 500 MG TAB PO SCH (10:53)
[2017-07-02 13:00] VITALS: BP_SYST 84; BP_SYST 85; BP_DIAS 43
[2017-07-02 20:00] VITALS: BP 87/61
[2017-07-02 21:46] VITALS: BP 87/61
[2017-07-03] MEDS: DIPHENOXYLATE W/ATROPINE 2.5 MG TAB PO PRN ×2 (04:39→08:56)
[2017-07-03 05:13] VITALS: BP 81/47
[2017-07-03] MEDS: BOOST 8 ounces PO SCH ×3 (08:27→17:38)
[2017-07-03] MEDS: PRO-STAT 64 30ML PO SCH ×2 (08:27→17:38)
[2017-07-03] MEDS: MULTIPLE VITAMIN TAB PO SCH (08:55)
[2017-07-03] MEDS: PANTOPRAZOLE 40 MG TAB PO SCH ×2 (08:55→22:15)
[2017-07-03] MEDS: APIXABAN 5 MG TAB PO SCH ×2 (08:55→22:15)
[2017-07-03] MEDS: ZINC SULFATE 220 MG CAP PO SCH ×2 (08:55→22:15)
[2017-07-03] MEDS: ASCORBIC ACID 500 MG TAB PO SCH ×2 (08:56→22:15)
[2017-07-03] MEDS: HYDROcodone-ACET 5/325MG TAB PO PRN ×3 (08:56→22:17)
[2017-07-03 09:00] VITALS: BP 93/69
[2017-07-03] MEDS: PSYLLIUM PWD 6 GM PKG PO SCH ×2 (09:09→22:00)
[2017-07-03 12:00] VITALS: BP 89/56
[2017-07-03 15:00] VITALS: BP 90/49
[2017-07-03 22:00] VITALS: BP 79/51
[2017-07-04 05:00] VITALS: BP 89/50
[2017-07-04 07:30] VITALS: BP 89/59
[2017-07-04] MEDS: BOOST 8 ounces PO SCH ×3 (08:48→17:42)
[2017-07-04] MEDS: PRO-STAT 64 30ML PO SCH ×2 (08:48→17:43)
[2017-07-04 09:00] VITALS: BP 89/59
[2017-07-04] MEDS: ZINC SULFATE 220 MG CAP PO SCH ×2 (09:24→22:24)
[2017-07-04] MEDS: APIXABAN 5 MG TAB PO SCH ×2 (09:25→22:24)
[2017-07-04] MEDS: PANTOPRAZOLE 40 MG TAB PO SCH ×2 (09:26→22:24)
[2017-07-04] MEDS: MULTIPLE VITAMIN TAB PO SCH (09:26)
[2017-07-04] MEDS: ASCORBIC ACID 500 MG TAB PO SCH ×2 (09:26→22:24)
[2017-07-04] MEDS: HYDROcodone-ACET 5/325MG TAB PO PRN ×2 (09:28→15:59)
[2017-07-04] MEDS: PSYLLIUM PWD 6 GM PKG PO SCH ×2 (10:00→22:23)
[2017-07-04 13:00] VITALS: BP 92/68
[2017-07-04 17:00] VITALS: BP 86/64
[2017-07-04 22:00] VITALS: BP 83/53
[2017-07-04] MEDS: LORazepam 0.5 MG TAB PO PRN (22:24)
[2017-07-05 05:00] VITALS: BP 100/53
[2017-07-05 05:56] LABS: Basophils # (auto) 0.1 uL; Basophils % (auto) 1.1 % (0.0-2.0); Eosinophils # (auto) 0.3 uL; Eosinophils % (auto) 3.6 % (0.0-7.0); Hematocrit 32.2 % (41.0-53.0); Hemoglobin 11.1 g/dL (13.5-17.5); Mean Corpuscular Hemoglobin 32.5 pg (28.0-32.0); Mean Corpuscular Hgb Conc. 34.4 g/dL (32.0-36.0); Mean Corpuscular Volume 94.6 fL (80.0-100.0); Monocytes # (auto) 0.7 uL; Monocytes % (auto) 7.7 % (0.0-12.0); Neutrophils # (auto) 6.7 uL; Neutrophils % (auto) 76.6 % (37.0-80.0); Platelet Count (auto) 433 10^3/uL (140-450); Red Cell Distribution Width 16.8 % (11.8-14.3); White Blood Cell 8.8 10^3/uL (4.4-10.8)
[2017-07-05 06:23] LABS: Albumin 1.8 g/dL (3.4-5.0); Calcium 7.7 mg/dL (8.5-10.1); Potassium 4.5 mmol/L (3.5-5.1)
[2017-07-05 06:25] LABS: BUN/Creatinine Ratio 48.9
[2017-07-05 06:27] LABS: Bilirubin, Total 0.5 mg/dL (0.2-1.0); Total Protein 5.5 g/dL (6.4-8.2)
[2017-07-05 07:30] VITALS: BP 87/49
[2017-07-05] MEDS: BOOST 8 ounces PO SCH ×3 (07:59→17:51)
[2017-07-05] MEDS: PRO-STAT 64 30ML PO SCH ×2 (07:59→17:51)
[2017-07-05 09:00] VITALS: BP 87/56
[2017-07-05] MEDS: ZINC SULFATE 220 MG CAP PO SCH ×2 (09:29→23:40)
[2017-07-05] MEDS: PANTOPRAZOLE 40 MG TAB PO SCH ×2 (09:29→23:41)
[2017-07-05] MEDS: HYDROcodone-ACET 5/325MG TAB PO PRN ×2 (09:29→18:37)
[2017-07-05] MEDS: APIXABAN 5 MG TAB PO SCH ×2 (09:29→23:40)
[2017-07-05] MEDS: MULTIPLE VITAMIN TAB PO SCH (09:29)
[2017-07-05] MEDS: ASCORBIC ACID 500 MG TAB PO SCH ×2 (09:29→23:41)
[2017-07-05] MEDS: PSYLLIUM PWD 6 GM PKG PO SCH ×2 (09:30→23:41)
[2017-07-05 13:00] VITALS: BP 84/48
[2017-07-05 17:06] VITALS: BP 80/58
[2017-07-05 22:00] VITALS: BP 78/47
[2017-07-05] MEDS: LORazepam 0.5 MG TAB PO PRN (23:54)
[2017-07-06 04:59] VITALS: BP 90/50
[2017-07-06 08:00] VITALS: BP 93/56
[2017-07-06 09:00] VITALS: BP 93/56
[2017-07-06] MEDS: HYDROcodone-ACET 5/325MG TAB PO PRN ×2 (09:21→15:56)
[2017-07-06] MEDS: PSYLLIUM PWD 6 GM PKG PO SCH ×3 (09:22→21:56)
[2017-07-06] MEDS: ASCORBIC ACID 500 MG TAB PO SCH ×2 (09:22→21:55)
[2017-07-06] MEDS: MULTIPLE VITAMIN TAB PO SCH (09:22)
[2017-07-06] MEDS: PANTOPRAZOLE 40 MG TAB PO SCH ×2 (09:22→21:55)
[2017-07-06] MEDS: APIXABAN 5 MG TAB PO SCH ×2 (09:22→21:55)
[2017-07-06] MEDS: ZINC SULFATE 220 MG CAP PO SCH ×2 (09:22→21:55)
[2017-07-06] MEDS: PRO-STAT 64 30ML PO SCH ×2 (09:23→18:22)
[2017-07-06] MEDS: BOOST 8 ounces PO SCH ×3 (09:23→18:22)
[2017-07-06 13:00] VITALS: BP 89/53
[2017-07-06 16:47] VITALS: BP 85/52
[2017-07-06 21:57] VITALS: BP 84/52
[2017-07-06] MEDS: LORazepam 0.5 MG TAB PO PRN (22:19)
[2017-07-07 05:10] VITALS: BP 86/57
[2017-07-07] MEDS: BOOST 8 ounces PO SCH ×3 (08:00→18:00)
[2017-07-07] MEDS: PRO-STAT 64 30ML PO SCH ×2 (08:00→18:00)
[2017-07-07 09:00] VITALS: BP 81/58
[2017-07-07] MEDS: PSYLLIUM PWD 6 GM PKG PO SCH ×2 (10:00→22:00)
[2017-07-07] MEDS: APIXABAN 5 MG TAB PO SCH ×2 (10:23→22:30)
[2017-07-07] MEDS: MULTIPLE VITAMIN TAB PO SCH (10:23)
[2017-07-07] MEDS: HYDROcodone-ACET 5/325MG TAB PO PRN ×2 (10:23→16:07)
[2017-07-07] MEDS: ZINC SULFATE 220 MG CAP PO SCH ×2 (10:24→22:30)
[2017-07-07] MEDS: ASCORBIC ACID 500 MG TAB PO SCH ×2 (10:24→22:31)
[2017-07-07] MEDS: PANTOPRAZOLE 40 MG TAB PO SCH ×2 (10:24→22:31)
[2017-07-07] MEDS: DIPHENOXYLATE W/ATROPINE 2.5 MG TAB PO PRN (11:52)
[2017-07-07 13:00] VITALS: BP 85/48
[2017-07-07 16:30] VITALS: BP 84/53
[2017-07-07 22:00] VITALS: BP 84/51
[2017-07-08 05:52] VITALS: BP 87/50
[2017-07-08 09:00] VITALS: BP 88/56
[2017-07-08] MEDS: ZINC SULFATE 220 MG CAP PO SCH ×2 (09:31→21:27)
[2017-07-08] MEDS: HYDROcodone-ACET 5/325MG TAB PO PRN (09:31)
[2017-07-08] MEDS: PANTOPRAZOLE 40 MG TAB PO SCH ×2 (09:31→21:27)
[2017-07-08] MEDS: ASCORBIC ACID 500 MG TAB PO SCH ×2 (09:31→21:28)
[2017-07-08] MEDS: MULTIPLE VITAMIN TAB PO SCH (09:31)
[2017-07-08] MEDS: APIXABAN 5 MG TAB PO SCH ×2 (09:31→21:27)
[2017-07-08] MEDS: PSYLLIUM PWD 6 GM PKG PO SCH ×2 (09:32→21:35)
[2017-07-08 12:50] VITALS: BP_SYST 83; BP_SYST 96; BP_DIAS 44; BP_DIAS 65
[2017-07-08] MEDS ORDERED: MORPHINE SULFATE 4 MG/ML SYR/VIAL IV PRN (13:15)
[2017-07-08] MEDS ORDERED: PROMETHAZINE HCL 6.25 MG/5 ML ORAL SYRUP PO PRN (13:15)
[2017-07-08] MEDS ORDERED: ACETAMINOPHEN 500 MG TAB PO PRN (13:15)
[2017-07-08 17:10] VITALS: BP 79/50
[2017-07-08] MEDS: BOOST 8 ounces PO SCH (19:10)
[2017-07-08] MEDS: PRO-STAT 64 30ML PO SCH (19:11)
[2017-07-08] MEDS: LORazepam 0.5 MG TAB PO PRN (21:28)
[2017-07-08 22:00] VITALS: BP 85/49
[2017-07-09 05:14] VITALS: BP 90/50
[2017-07-09] MEDS: APIXABAN 5 MG TAB PO SCH ×2 (08:31→21:24)
[2017-07-09] MEDS: PANTOPRAZOLE 40 MG TAB PO SCH ×2 (08:31→21:25)
[2017-07-09] MEDS: ZINC SULFATE 220 MG CAP PO SCH ×2 (08:31→21:24)
[2017-07-09] MEDS: MULTIPLE VITAMIN TAB PO SCH (08:31)
[2017-07-09] MEDS: DIPHENOXYLATE W/ATROPINE 2.5 MG TAB PO PRN (08:32)
[2017-07-09] MEDS: ASCORBIC ACID 500 MG TAB PO SCH ×2 (08:32→21:25)
[2017-07-09] MEDS: HYDROcodone-ACET 5/325MG TAB PO PRN ×2 (08:39→14:00)
[2017-07-09] MEDS: PRO-STAT 64 30ML PO SCH (08:41)
[2017-07-09] MEDS: BOOST 8 ounces PO SCH ×2 (08:41→18:00)
[2017-07-09 09:00] VITALS: BP 104/67
[2017-07-09] MEDS: PSYLLIUM PWD 6 GM PKG PO SCH ×2 (10:00→21:25)
[2017-07-09 13:00] VITALS: BP 90/49
[2017-07-09 16:56] VITALS: BP 85/54
[2017-07-09] MEDS: LORazepam 0.5 MG TAB PO PRN (21:24)
[2017-07-09 21:50] VITALS: BP 88/42
[2017-07-09 23:00] VITALS: BP 92/48
[2017-07-10 05:36] VITALS: BP 87/54
[2017-07-10 06:19] VITALS: BP 91/45
[2017-07-10] MEDS: PRO-STAT 64 30ML PO SCH ×2 (08:00→18:00)
[2017-07-10] MEDS: BOOST 8 ounces PO SCH ×3 (08:00→18:00)
[2017-07-10 08:43] VITALS: BP 85/48
[2017-07-10] MEDS: PSYLLIUM PWD 6 GM PKG PO SCH ×2 (10:00→21:18)
[2017-07-10] MEDS: ZINC SULFATE 220 MG CAP PO SCH ×2 (10:18→21:17)
[2017-07-10] MEDS: APIXABAN 5 MG TAB PO SCH ×2 (10:18→21:17)
[2017-07-10] MEDS: MULTIPLE VITAMIN TAB PO SCH (10:19)
[2017-07-10] MEDS: HYDROcodone-ACET 5/325MG TAB PO PRN (10:20)
[2017-07-10] MEDS: PANTOPRAZOLE 40 MG TAB PO SCH ×2 (10:25→21:17)
[2017-07-10] MEDS: ASCORBIC ACID 500 MG TAB PO SCH ×2 (10:25→21:17)
[2017-07-10 13:00] VITALS: BP 92/55
[2017-07-10 16:15] VITALS: BP 88/48
[2017-07-10] MEDS: LORazepam 0.5 MG TAB PO PRN (21:17)
[2017-07-10 22:19] VITALS: BP 91/57
[2017-07-11 05:36] VITALS: BP 86/53
[2017-07-11 06:00] VITALS: BP 92/54
[2017-07-11] MEDS: PRO-STAT 64 30ML PO SCH ×3 (08:00→17:47)
[2017-07-11] MEDS: BOOST 8 ounces PO SCH ×4 (08:00→17:47)
[2017-07-11 09:00] VITALS: BP 84/50
[2017-07-11] MEDS: ASCORBIC ACID 500 MG TAB PO SCH ×2 (09:34→21:42)
[2017-07-11] MEDS: MULTIPLE VITAMIN TAB PO SCH (09:34)
[2017-07-11] MEDS: APIXABAN 5 MG TAB PO SCH ×2 (09:34→21:42)
[2017-07-11] MEDS: PANTOPRAZOLE 40 MG TAB PO SCH ×2 (09:34→21:42)
[2017-07-11] MEDS: ZINC SULFATE 220 MG CAP PO SCH ×2 (09:34→21:42)
[2017-07-11] MEDS: PSYLLIUM PWD 6 GM PKG PO SCH ×2 (09:36→21:42)
[2017-07-11] MEDS: DIPHENOXYLATE W/ATROPINE 2.5 MG TAB PO PRN (09:36)
[2017-07-11] MEDS: HYDROcodone-ACET 5/325MG TAB PO PRN ×2 (09:36→15:32)
[2017-07-11 12:52] VITALS: BP 80/47
[2017-07-11 17:00] VITALS: BP 85/59
[2017-07-11] MEDS: LORazepam 0.5 MG TAB PO PRN (21:42)
[2017-07-11 22:00] VITALS: BP 83/53
[2017-07-12 05:00] VITALS: BP 89/61
[2017-07-12 06:44] LABS: Basophils # (auto) 0.1 uL; Eosinophils # (auto) 0.2 uL; Monocytes # (auto) 0.6 uL; White Blood Cell 8.1 10^3/uL (4.4-10.8)
[2017-07-12 06:47] LABS: Basophils % (auto) 1.3 % (0.0-2.0); Eosinophils % (auto) 2.3 % (0.0-7.0); Hematocrit 31.5 % (41.0-53.0); Hemoglobin 10.5 g/dL (13.5-17.5); Lymphocytes # (auto) 1.1 uL; Lymphocytes % (auto) 14.1 % (10.0-50.0); Mean Corpuscular Hemoglobin 31.5 pg (28.0-32.0); Mean Corpuscular Hgb Conc. 33.4 g/dL (32.0-36.0); Mean Corpuscular Volume 94.3 fL (80.0-100.0); Monocytes % (auto) 7.3 % (0.0-12.0); Neutrophils # (auto) 6.1 uL; Platelet Count (auto) 543 10^3/uL (140-450); Red Blood Cells 3.35 10^6/uL (4.5-5.90)
[2017-07-12 07:08] LABS: BUN/Creatinine Ratio 42.2; Calcium 7.4 mg/dL (8.5-10.1); Potassium 4.5 mmol/L (3.5-5.1)
[2017-07-12 09:25] VITALS: BP 88/57
[2017-07-12] MEDS: APIXABAN 5 MG TAB PO SCH ×2 (09:28→22:06)
[2017-07-12] MEDS: ASCORBIC ACID 500 MG TAB PO SCH ×2 (09:28→22:06)
[2017-07-12] MEDS: PANTOPRAZOLE 40 MG TAB PO SCH ×2 (09:29→22:06)
[2017-07-12] MEDS: MULTIPLE VITAMIN TAB PO SCH (09:29)
[2017-07-12] MEDS: ZINC SULFATE 220 MG CAP PO SCH ×2 (09:29→22:06)
[2017-07-12] MEDS: PSYLLIUM PWD 6 GM PKG PO SCH ×2 (09:30→22:00)
[2017-07-12] MEDS: BOOST 8 ounces PO SCH ×3 (09:30→18:20)
[2017-07-12] MEDS: PRO-STAT 64 30ML PO SCH ×2 (09:30→18:20)
[2017-07-12] MEDS: HYDROcodone-ACET 5/325MG TAB PO PRN (09:30)
[2017-07-12 14:29] VITALS: BP 95/53
[2017-07-12] MEDS: DIPHENOXYLATE W/ATROPINE 2.5 MG TAB PO PRN (22:06)
[2017-07-12] MEDS: LORazepam 0.5 MG TAB PO PRN (22:06)
[2017-07-12] MEDS ORDERED: MORPHINE SULFATE 8mg/ml INJ SDV IV PRN (22:15)
[2017-07-12 23:58] VITALS: BP 85/50
[2017-07-13 05:01] VITALS: BP 72/54
[2017-07-13] MEDS: HYDROcodone-ACET 5/325MG TAB PO PRN (08:48)
[2017-07-13] MEDS: PRO-STAT 64 30ML PO SCH ×2 (08:49→18:34)
[2017-07-13] MEDS: BOOST 8 ounces PO SCH ×3 (08:49→18:34)
[2017-07-13 09:00] VITALS: BP 91/61
[2017-07-13] MEDS: PSYLLIUM PWD 6 GM PKG PO SCH ×2 (10:00→22:00)
[2017-07-13] MEDS: ASCORBIC ACID 500 MG TAB PO SCH ×2 (10:31→22:58)
[2017-07-13] MEDS: MULTIPLE VITAMIN TAB PO SCH (10:31)
[2017-07-13] MEDS: APIXABAN 5 MG TAB PO SCH ×2 (10:31→22:58)
[2017-07-13] MEDS: PANTOPRAZOLE 40 MG TAB PO SCH ×2 (10:31→22:58)
[2017-07-13] MEDS: ZINC SULFATE 220 MG CAP PO SCH ×2 (10:31→22:58)
[2017-07-13 13:00] VITALS: BP 91/46
[2017-07-13 17:00] VITALS: BP 82/41
[2017-07-13 22:00] VITALS: BP_SYST 152; BP_SYST 88; BP_DIAS 49; BP_DIAS 63
[2017-07-13] MEDS: LORazepam 0.5 MG TAB PO PRN (22:25)
[2017-07-14 06:11] VITALS: BP 90/58
[2017-07-14] MEDS: MULTIPLE VITAMIN TAB PO SCH (08:12)
[2017-07-14] MEDS: PANTOPRAZOLE 40 MG TAB PO SCH ×2 (08:12→22:29)
[2017-07-14] MEDS: APIXABAN 5 MG TAB PO SCH ×2 (08:12→22:29)
[2017-07-14] MEDS: ASCORBIC ACID 500 MG TAB PO SCH ×2 (08:12→22:30)
[2017-07-14] MEDS: DIPHENOXYLATE W/ATROPINE 2.5 MG TAB PO PRN (08:13)
[2017-07-14] MEDS: HYDROcodone-ACET 5/325MG TAB PO PRN (08:13)
[2017-07-14 09:00] VITALS: BP 87/54
[2017-07-14] MEDS: PSYLLIUM PWD 6 GM PKG PO SCH ×3 (10:00→22:30)
[2017-07-14] MEDS: BOOST 8 ounces PO SCH ×3 (11:08→19:05)
[2017-07-14] MEDS: PRO-STAT 64 30ML PO SCH ×2 (11:09→19:04)
[2017-07-14] MEDS: ZINC SULFATE 220 MG CAP PO SCH ×2 (11:09→22:29)
[2017-07-14 13:00] VITALS: BP 91/53
[2017-07-14 17:00] VITALS: BP 84/54
[2017-07-14 21:36] VITALS: BP 89/49
[2017-07-14] MEDS: LORazepam 0.5 MG TAB PO PRN (22:38)
[2017-07-15 04:36] VITALS: BP 90/50
[2017-07-15 06:41] LABS: Basophils # (auto) 0.1 uL; Eosinophils # (auto) 0.2 uL; Eosinophils % (auto) 2.6 % (0.0-7.0); Hemoglobin 10.5 g/dL (13.5-17.5); Monocytes # (auto) 0.5 uL; Neutrophils # (auto) 5.3 uL; White Blood Cell 7.2 10^3/uL (4.4-10.8)
[2017-07-15 06:45] LABS: Hematocrit 31.9 % (41.0-53.0); Lymphocytes # (auto) 1.2 uL; Lymphocytes % (auto) 16.7 % (10.0-50.0); Mean Corpuscular Hemoglobin 31.5 pg (28.0-32.0); Mean Corpuscular Volume 95.6 fL (80.0-100.0); Monocytes % (auto) 6.7 % (0.0-12.0); Platelet Count (auto) 556 10^3/uL (140-450); Red Blood Cells 3.34 10^6/uL (4.5-5.90); Red Cell Distribution Width 16.9 % (11.8-14.3)
[2017-07-15 07:03] LABS: BUN/Creatinine Ratio 46.3; Calcium 7.2 mg/dL (8.5-10.1); Potassium 4.3 mmol/L (3.5-5.1)
[2017-07-15 08:20] VITALS: BP 102/51
[2017-07-15] MEDS: HYDROcodone-ACET 5/325MG TAB PO PRN (09:03)
[2017-07-15] MEDS: PRO-STAT 64 30ML PO SCH ×2 (09:03→18:48)
[2017-07-15] MEDS: BOOST 8 ounces PO SCH ×3 (09:03→18:48)
[2017-07-15] MEDS: APIXABAN 5 MG TAB PO SCH ×2 (11:55→21:43)
[2017-07-15 11:58] VITALS: BP 86/44
[2017-07-15] MEDS ORDERED: PSYLLIUM PWD 6 GM PKG PO ONE (12:15)
[2017-07-15] MEDS ORDERED: PANTOPRAZOLE 40 MG TAB PO ONE (12:15)
[2017-07-15] MEDS ORDERED: MULTIPLE VITAMIN TAB PO ONE (12:15)
[2017-07-15] MEDS ORDERED: ASCORBIC ACID 500 MG TAB PO ONE (12:15)
[2017-07-15] MEDS ORDERED: ZINC SULFATE 220 MG CAP PO ONE (12:15)
[2017-07-15 17:00] VITALS: BP 81/42
[2017-07-15] MEDS: ASCORBIC ACID 500 MG TAB PO SCH (21:43)
[2017-07-15] MEDS: ZINC SULFATE 220 MG CAP PO SCH (21:43)
[2017-07-15] MEDS: PSYLLIUM PWD 6 GM PKG PO SCH (21:43)
[2017-07-15] MEDS: PANTOPRAZOLE 40 MG TAB PO SCH (21:43)
[2017-07-15] MEDS: LORazepam 0.5 MG TAB PO PRN (21:44)
[2017-07-15 22:00] VITALS: BP 86/52
[2017-07-16 04:47] VITALS: BP 85/46
[2017-07-16] MEDS: APIXABAN 5 MG TAB PO SCH ×2 (08:39→21:45)
[2017-07-16] MEDS: MULTIPLE VITAMIN TAB PO SCH (08:39)
[2017-07-16] MEDS: ASCORBIC ACID 500 MG TAB PO SCH ×2 (08:40→21:46)
[2017-07-16] MEDS: HYDROcodone-ACET 5/325MG TAB PO PRN (08:40)
[2017-07-16] MEDS: DIPHENOXYLATE W/ATROPINE 2.5 MG TAB PO PRN (08:40)
[2017-07-16] MEDS: PANTOPRAZOLE 40 MG TAB PO SCH ×2 (08:40→21:46)
[2017-07-16] MEDS: ZINC SULFATE 220 MG CAP PO SCH ×2 (08:40→21:46)
[2017-07-16 08:55] VITALS: BP 93/57
[2017-07-16] MEDS: PSYLLIUM PWD 6 GM PKG PO SCH ×2 (10:00→21:46)
[2017-07-16 12:59] VITALS: BP 87/67
[2017-07-16 17:00] VITALS: BP 77/47
[2017-07-16] MEDS: BOOST 8 ounces PO SCH ×3 (19:42→19:44)
[2017-07-16] MEDS: PRO-STAT 64 30ML PO SCH ×2 (19:42→19:43)
[2017-07-16] MEDS: LORazepam 0.5 MG TAB PO PRN (21:46)
[2017-07-16 22:27] VITALS: BP 91/51
[2017-07-17] MEDS: APIXABAN 5 MG TAB PO SCH ×2 (08:25→22:27)
[2017-07-17] MEDS: MULTIPLE VITAMIN TAB PO SCH (08:26)
[2017-07-17] MEDS: HYDROcodone-ACET 5/325MG TAB PO PRN (08:26)
[2017-07-17] MEDS: PANTOPRAZOLE 40 MG TAB PO SCH ×2 (08:26→22:27)
[2017-07-17] MEDS: ZINC SULFATE 220 MG CAP PO SCH ×2 (08:26→22:27)
[2017-07-17] MEDS: ASCORBIC ACID 500 MG TAB PO SCH ×2 (08:26→22:27)
[2017-07-17] MEDS: DIPHENOXYLATE W/ATROPINE 2.5 MG TAB PO PRN (08:26)
[2017-07-17] MEDS: BOOST 8 ounces PO SCH ×3 (08:30→18:00)
[2017-07-17] MEDS: PRO-STAT 64 30ML PO SCH ×2 (08:30→18:00)
[2017-07-17 09:00] VITALS: BP 81/55
[2017-07-17] MEDS: PSYLLIUM PWD 6 GM PKG PO SCH ×2 (10:00→22:00)
[2017-07-17] MEDS ORDERED: POTASSIUM CHL 10 Meq TABLET PO ONE (10:45)
[2017-07-17] MEDS ORDERED: FUROSEMIDE 20 MG TAB PO ONE (10:45)
[2017-07-17 13:00] VITALS: BP 88/56
[2017-07-17 16:52] VITALS: BP 81/48
[2017-07-17 22:00] VITALS: BP 81/52
[2017-07-17] MEDS: LORazepam 0.5 MG TAB PO PRN (22:23)
[2017-07-18 05:25] VITALS: BP 85/60
[2017-07-18 09:00] VITALS: BP 92/61
[2017-07-18] MEDS: PRO-STAT 64 30ML PO SCH ×2 (09:19→18:35)
[2017-07-18] MEDS: BOOST 8 ounces PO SCH ×3 (09:19→18:35)
[2017-07-18] MEDS: PSYLLIUM PWD 6 GM PKG PO SCH ×3 (09:21→21:39)
[2017-07-18] MEDS: APIXABAN 5 MG TAB PO SCH ×2 (09:21→21:39)
[2017-07-18] MEDS: ZINC SULFATE 220 MG CAP PO SCH ×2 (09:21→21:39)
[2017-07-18] MEDS: POTASSIUM CHL 10 Meq TABLET PO SCH (09:22)
[2017-07-18] MEDS: MULTIPLE VITAMIN TAB PO SCH (09:22)
[2017-07-18] MEDS: ASCORBIC ACID 500 MG TAB PO SCH ×2 (09:22→21:39)
[2017-07-18] MEDS: PANTOPRAZOLE 40 MG TAB PO SCH ×2 (09:22→21:39)
[2017-07-18] MEDS: FUROSEMIDE 20 MG TAB PO SCH (09:23)
[2017-07-18] MEDS: HYDROcodone-ACET 5/325MG TAB PO PRN (09:23)
[2017-07-18 13:00] VITALS: BP 86/56
[2017-07-18 18:00] VITALS: BP 88/50
[2017-07-18] MEDS: LORazepam 0.5 MG TAB PO PRN (21:39)
[2017-07-18 22:00] VITALS: BP 91/54
[2017-07-19 05:23] VITALS: BP 81/48
[2017-07-19 09:00] VITALS: BP 102/64
[2017-07-19] MEDS: BOOST 8 ounces PO SCH ×3 (09:22→18:00)
[2017-07-19] MEDS: PRO-STAT 64 30ML PO SCH ×2 (09:22→18:00)
[2017-07-19] MEDS: APIXABAN 5 MG TAB PO SCH ×2 (09:23→21:46)
[2017-07-19] MEDS: FUROSEMIDE 20 MG TAB PO SCH (09:23)
[2017-07-19] MEDS: ZINC SULFATE 220 MG CAP PO SCH ×2 (09:23→21:46)
[2017-07-19] MEDS: ASCORBIC ACID 500 MG TAB PO SCH ×2 (09:23→21:46)
[2017-07-19] MEDS: MULTIPLE VITAMIN TAB PO SCH (09:24)
[2017-07-19] MEDS: POTASSIUM CHL 10 Meq TABLET PO SCH (09:24)
[2017-07-19] MEDS: PSYLLIUM PWD 6 GM PKG PO SCH ×2 (09:24→21:46)
[2017-07-19] MEDS: PANTOPRAZOLE 40 MG TAB PO SCH ×2 (09:24→21:46)
[2017-07-19] MEDS: LORazepam 0.5 MG TAB PO PRN ×2 (09:25→21:46)
[2017-07-19] MEDS: HYDROcodone-ACET 5/325MG TAB PO PRN ×3 (09:25→21:47)
[2017-07-19 13:00] VITALS: BP 84/52
[2017-07-19 17:21] VITALS: BP 103/81
[2017-07-19 22:00] VITALS: BP 81/53
[2017-07-20 05:00] VITALS: BP 86/51
[2017-07-20] MEDS: PRO-STAT 64 30ML PO SCH ×2 (08:00→18:00)
[2017-07-20] MEDS: BOOST 8 ounces PO SCH ×3 (08:00→18:00)
[2017-07-20 08:37] VITALS: BP 108/62
[2017-07-20] MEDS: HYDROcodone-ACET 5/325MG TAB PO PRN (08:40)
[2017-07-20] MEDS: DIPHENOXYLATE W/ATROPINE 2.5 MG TAB PO PRN (08:40)
[2017-07-20] MEDS: PSYLLIUM PWD 6 GM PKG PO SCH ×2 (10:00→21:51)
[2017-07-20] MEDS: POTASSIUM CHL 10 Meq TABLET PO SCH (10:00)
[2017-07-20] MEDS: FUROSEMIDE 20 MG TAB PO SCH (10:00)
[2017-07-20] MEDS: ZINC SULFATE 220 MG CAP PO SCH ×2 (10:21→21:51)
[2017-07-20] MEDS: ASCORBIC ACID 500 MG TAB PO SCH ×2 (10:21→21:52)
[2017-07-20] MEDS: PANTOPRAZOLE 40 MG TAB PO SCH ×2 (10:22→21:52)
[2017-07-20] MEDS: APIXABAN 5 MG TAB PO SCH ×2 (10:23→21:51)
[2017-07-20] MEDS: MULTIPLE VITAMIN TAB PO SCH (10:23)
[2017-07-20 12:42] VITALS: BP 92/53
[2017-07-20 16:58] VITALS: BP 94/61
[2017-07-20 22:10] VITALS: BP 86/47
[2017-07-20] MEDS: LORazepam 0.5 MG TAB PO PRN (22:10)
[2017-07-21 05:15] VITALS: BP 83/59
[2017-07-21 09:00] VITALS: BP 94/69
[2017-07-21] MEDS: POTASSIUM CHL 10 Meq TABLET PO SCH (10:00)
[2017-07-21] MEDS: FUROSEMIDE 20 MG TAB PO SCH (10:00)
[2017-07-21] MEDS: PSYLLIUM PWD 6 GM PKG PO SCH ×2 (10:00→21:53)
[2017-07-21] MEDS: MULTIPLE VITAMIN TAB PO SCH (10:10)
[2017-07-21] MEDS: HYDROcodone-ACET 5/325MG TAB PO PRN (10:10)
[2017-07-21] MEDS: ZINC SULFATE 220 MG CAP PO SCH ×2 (10:10→21:53)
[2017-07-21] MEDS: PANTOPRAZOLE 40 MG TAB PO SCH ×2 (10:10→21:53)
[2017-07-21] MEDS: ASCORBIC ACID 500 MG TAB PO SCH ×2 (10:10→21:54)
[2017-07-21] MEDS: APIXABAN 5 MG TAB PO SCH ×2 (10:10→21:53)
[2017-07-21] MEDS: PRO-STAT 64 30ML PO SCH ×2 (10:13→19:10)
[2017-07-21] MEDS: BOOST 8 ounces PO SCH ×3 (10:13→19:10)
[2017-07-21 12:32] VITALS: BP 85/50
[2017-07-21 17:00] VITALS: BP 84/56
[2017-07-21 21:44] VITALS: BP 86/57
[2017-07-21] MEDS: LORazepam 0.5 MG TAB PO PRN (21:54)
[2017-07-22 05:16] VITALS: BP 89/49
[2017-07-22 09:04] VITALS: BP 87/54
[2017-07-22] MEDS: HYDROcodone-ACET 5/325MG TAB PO PRN ×3 (09:12→22:13)
[2017-07-22] MEDS: PRO-STAT 64 30ML PO SCH ×2 (09:12→18:24)
[2017-07-22] MEDS: BOOST 8 ounces PO SCH ×3 (09:12→18:24)
[2017-07-22] MEDS: PSYLLIUM PWD 6 GM PKG PO SCH ×2 (10:00→22:00)
[2017-07-22] MEDS: POTASSIUM CHL 10 Meq TABLET PO SCH (10:00)
[2017-07-22] MEDS: FUROSEMIDE 20 MG TAB PO SCH (10:00)
[2017-07-22] MEDS: ASCORBIC ACID 500 MG TAB PO SCH ×2 (10:18→22:13)
[2017-07-22] MEDS: ZINC SULFATE 220 MG CAP PO SCH ×2 (10:18→22:12)
[2017-07-22] MEDS: MULTIPLE VITAMIN TAB PO SCH (10:18)
[2017-07-22] MEDS: PANTOPRAZOLE 40 MG TAB PO SCH ×2 (10:18→22:13)
[2017-07-22] MEDS: APIXABAN 5 MG TAB PO SCH ×2 (10:18→22:12)
[2017-07-22] MEDS: DIPHENOXYLATE W/ATROPINE 2.5 MG TAB PO PRN (10:19)
[2017-07-22] MEDS ORDERED: ACETAMINOPHEN 500 MG TAB PO PRN (12:00)
[2017-07-22] MEDS ORDERED: MORPHINE SULFATE 8mg/ml INJ SDV IV PRN (12:00)
[2017-07-22] MEDS ORDERED: PROMETHAZINE HCL 6.25 MG/5 ML ORAL SYRUP PO PRN (12:00)
[2017-07-22] MEDS ORDERED: LEVOFLOXACIN 250 MG TAB PO ONE (12:00)
[2017-07-22 12:43] LABS: Basophils # (auto) 0.1 uL; Hematocrit 33.1 % (41.0-53.0); Hemoglobin 10.6 g/dL (13.5-17.5); Lymphocytes # (auto) 0.9 uL; Lymphocytes % (auto) 12.4 % (10.0-50.0); Mean Corpuscular Hgb Conc. 32.1 g/dL (32.0-36.0)
[2017-07-22 12:45] LABS: Basophils % (auto) 0.9 % (0.0-2.0); Eosinophils # (auto) 0.2 uL; Eosinophils % (auto) 2.1 % (0.0-7.0); Mean Corpuscular Hemoglobin 31.1 pg (28.0-32.0); Mean Corpuscular Volume 96.8 fL (80.0-100.0); Monocytes # (auto) 0.4 uL; Neutrophils # (auto) 5.8 uL; Neutrophils % (auto) 78.6 % (37.0-80.0); Platelet Count (auto) 487 10^3/uL (140-450); Red Blood Cells 3.41 10^6/uL (4.5-5.90); Red Cell Distribution Width 17.2 % (11.8-14.3); White Blood Cell 7.4 10^3/uL (4.4-10.8)
[2017-07-22 12:58] LABS: BUN/Creatinine Ratio 45.7; Calcium 7.4 mg/dL (8.5-10.1); Potassium 4.3 mmol/L (3.5-5.1)
[2017-07-22 13:01] VITALS: BP 95/57
[2017-07-22] MEDS: CIPROFLOXACIN HCL 500 MG TAB PO SCH ×2 (13:46→22:12)
[2017-07-22 22:00] VITALS: BP 84/48
[2017-07-22] MEDS: LORazepam 0.5 MG TAB PO PRN (22:13)
[2017-07-23 04:36] VITALS: BP 91/55
[2017-07-23 08:44] VITALS: BP 90/51
[2017-07-23] MEDS: ZINC SULFATE 220 MG CAP PO SCH ×2 (08:51→22:38)
[2017-07-23] MEDS: CIPROFLOXACIN HCL 500 MG TAB PO SCH ×2 (08:51→22:38)
[2017-07-23] MEDS: POTASSIUM CHL 10 Meq TABLET PO SCH (08:52)
[2017-07-23] MEDS: PANTOPRAZOLE 40 MG TAB PO SCH ×2 (08:52→22:39)
[2017-07-23] MEDS: MULTIPLE VITAMIN TAB PO SCH (08:52)
[2017-07-23] MEDS: ASCORBIC ACID 500 MG TAB PO SCH ×2 (08:52→22:39)
[2017-07-23] MEDS: APIXABAN 5 MG TAB PO SCH ×2 (08:52→22:38)
[2017-07-23] MEDS: HYDROcodone-ACET 5/325MG TAB PO PRN (08:54)
[2017-07-23] MEDS: PSYLLIUM PWD 6 GM PKG PO SCH ×2 (09:36→22:38)
[2017-07-23] MEDS: BOOST 8 ounces PO SCH ×3 (09:36→18:36)
[2017-07-23] MEDS: PRO-STAT 64 30ML PO SCH ×2 (09:36→18:36)
[2017-07-23] MEDS ORDERED: LEVOFLOXACIN 250 MG TAB PO SCH (10:00)
[2017-07-23] MEDS: FUROSEMIDE 20 MG TAB PO SCH (10:00)
[2017-07-23 12:57] VITALS: BP 90/52
[2017-07-23 17:01] VITALS: BP 81/57
[2017-07-23 22:00] VITALS: BP 86/43
[2017-07-23] MEDS: LORazepam 0.5 MG TAB PO PRN (22:39)
[2017-07-24] MEDS: HYDROcodone-ACET 5/325MG TAB PO PRN ×2 (04:16→10:11)
[2017-07-24 05:28] VITALS: BP 79/46
[2017-07-24 06:04] VITALS: BP 86/41
[2017-07-24 09:00] VITALS: BP 84/50
[2017-07-24] MEDS: PSYLLIUM PWD 6 GM PKG PO SCH ×2 (10:00→21:41)
[2017-07-24] MEDS: FUROSEMIDE 20 MG TAB PO SCH (10:00)
[2017-07-24] MEDS: POTASSIUM CHL 10 Meq TABLET PO SCH (10:00)
[2017-07-24] MEDS: APIXABAN 5 MG TAB PO SCH ×2 (10:09→21:41)
[2017-07-24] MEDS: BOOST 8 ounces PO SCH ×3 (10:09→18:00)
[2017-07-24] MEDS: PRO-STAT 64 30ML PO SCH ×2 (10:09→18:00)
[2017-07-24] MEDS: ZINC SULFATE 220 MG CAP PO SCH ×2 (10:09→21:40)
[2017-07-24] MEDS: CIPROFLOXACIN HCL 500 MG TAB PO SCH ×2 (10:09→21:40)
[2017-07-24] MEDS: PANTOPRAZOLE 40 MG TAB PO SCH ×2 (10:10→21:40)
[2017-07-24] MEDS: MULTIPLE VITAMIN TAB PO SCH (10:10)
[2017-07-24] MEDS: ASCORBIC ACID 500 MG TAB PO SCH ×2 (10:10→21:41)
[2017-07-24 13:00] VITALS: BP 94/61
[2017-07-24 17:00] VITALS: BP 86/54
[2017-07-24 22:00] VITALS: BP 82/49
[2017-07-24] MEDS: LORazepam 0.5 MG TAB PO PRN (22:05)
[2017-07-25] MEDS: DIPHENOXYLATE W/ATROPINE 2.5 MG TAB PO PRN (02:03)
[2017-07-25 05:00] VITALS: BP 85/55
[2017-07-25 09:00] VITALS: BP 86/53
[2017-07-25] MEDS: BOOST 8 ounces PO SCH (09:28)
[2017-07-25] MEDS: ASCORBIC ACID 500 MG TAB PO SCH ×2 (09:29→21:19)
[2017-07-25] MEDS: PRO-STAT 64 30ML PO SCH (09:29)
[2017-07-25] MEDS: MULTIPLE VITAMIN TAB PO SCH (09:29)
[2017-07-25] MEDS: CIPROFLOXACIN HCL 500 MG TAB PO SCH ×2 (09:29→21:18)
[2017-07-25] MEDS: HYDROcodone-ACET 5/325MG TAB PO PRN (09:29)
[2017-07-25] MEDS: PANTOPRAZOLE 40 MG TAB PO SCH ×2 (09:29→21:19)
[2017-07-25] MEDS: APIXABAN 5 MG TAB PO SCH ×2 (09:29→21:18)
[2017-07-25] MEDS: ZINC SULFATE 220 MG CAP PO SCH ×2 (09:29→21:18)
[2017-07-25] MEDS: FUROSEMIDE 20 MG TAB PO SCH (09:30)
[2017-07-25] MEDS: POTASSIUM CHL 10 Meq TABLET PO SCH (09:30)
[2017-07-25] MEDS: PSYLLIUM PWD 6 GM PKG PO SCH ×2 (09:30→21:19)
[2017-07-25 13:00] VITALS: BP 77/43
[2017-07-25 18:19] VITALS: BP 88/52
[2017-07-25] MEDS: LORazepam 0.5 MG TAB PO PRN (21:19)
[2017-07-25 22:00] VITALS: BP 81/40
[2017-07-26 05:09] VITALS: BP 90/57
[2017-07-26 09:00] VITALS: BP 100/44
[2017-07-26] MEDS: ZINC SULFATE 220 MG CAP PO SCH ×2 (09:32→21:46)
[2017-07-26] MEDS: APIXABAN 5 MG TAB PO SCH ×2 (09:32→21:45)
[2017-07-26] MEDS: PANTOPRAZOLE 40 MG TAB PO SCH ×2 (09:32→21:45)
[2017-07-26] MEDS: MULTIPLE VITAMIN TAB PO SCH (09:32)
[2017-07-26] MEDS: CIPROFLOXACIN HCL 500 MG TAB PO SCH (09:32)
[2017-07-26] MEDS: ASCORBIC ACID 500 MG TAB PO SCH ×2 (09:32→21:46)
[2017-07-26] MEDS: POTASSIUM CHL 10 Meq TABLET PO SCH ×2 (09:32→10:00)
[2017-07-26] MEDS: PRO-STAT 64 30ML PO SCH ×2 (09:34→17:55)
[2017-07-26] MEDS: BOOST 8 ounces PO SCH ×3 (09:34→17:55)
[2017-07-26] MEDS: PSYLLIUM PWD 6 GM PKG PO SCH ×2 (09:35→21:47)
[2017-07-26] MEDS: FUROSEMIDE 20 MG TAB PO SCH (09:35)
[2017-07-26] MEDS: DIPHENOXYLATE W/ATROPINE 2.5 MG TAB PO PRN (09:40)
[2017-07-26 13:00] VITALS: BP 99/58
[2017-07-26] MEDS ORDERED: ERTAPENEM SOD INJ 1 GM in SODIUM CHL 0.9% 50 ML IV ONE (13:00)
[2017-07-26 17:00] VITALS: BP 86/49
[2017-07-26] MEDS: LORazepam 0.5 MG TAB PO PRN (21:46)
[2017-07-26 22:00] VITALS: BP 97/53
[2017-07-27 05:00] VITALS: BP 104/58
[2017-07-27 08:30] VITALS: BP 90/52
[2017-07-27] MEDS: ZINC SULFATE 220 MG CAP PO SCH ×2 (09:26→21:59)
[2017-07-27] MEDS: PRO-STAT 64 30ML PO SCH ×2 (09:27→17:44)
[2017-07-27] MEDS: BOOST 8 ounces PO SCH ×3 (09:27→17:44)
[2017-07-27] MEDS: MULTIPLE VITAMIN TAB PO SCH (09:28)
[2017-07-27] MEDS: PANTOPRAZOLE 40 MG TAB PO SCH ×2 (09:29→21:59)
[2017-07-27] MEDS: APIXABAN 5 MG TAB PO SCH ×2 (09:30→21:59)
[2017-07-27] MEDS: ERTAPENEM SOD INJ 1 GM in SODIUM CHL 0.9% 50 ML IV SCH (09:30)
[2017-07-27] MEDS: HYDROcodone-ACET 5/325MG TAB PO PRN (09:30)
[2017-07-27] MEDS: ASCORBIC ACID 500 MG TAB PO SCH ×2 (09:30→21:59)
[2017-07-27] MEDS: PSYLLIUM PWD 6 GM PKG PO SCH ×2 (09:31→21:59)
[2017-07-27] MEDS: FUROSEMIDE 20 MG TAB PO SCH (09:31)
[2017-07-27] MEDS: POTASSIUM CHL 10 Meq TABLET PO SCH (09:31)
[2017-07-27 12:30] VITALS: BP 87/52
[2017-07-27 16:51] VITALS: BP 97/63
[2017-07-27] MEDS: LINEZOLID 600MG/300ML 300 ML IV SCH (17:43)
[2017-07-27] MEDS: LORazepam 0.5 MG TAB PO PRN (21:59)
[2017-07-27 22:27] VITALS: BP 82/52
[2017-07-28 05:30] VITALS: BP 87/49
[2017-07-28] MEDS: DIPHENOXYLATE W/ATROPINE 2.5 MG TAB PO PRN ×3 (06:19→23:22)
[2017-07-28] MEDS: LINEZOLID 600MG/300ML 300 ML IV SCH ×2 (06:19→17:26)
[2017-07-28 09:00] VITALS: BP 112/50
[2017-07-28] MEDS: ERTAPENEM SOD INJ 1 GM in SODIUM CHL 0.9% 50 ML IV SCH (09:19)
[2017-07-28] MEDS: PRO-STAT 64 30ML PO SCH ×2 (09:19→17:26)
[2017-07-28] MEDS: BOOST 8 ounces PO SCH ×3 (09:19→17:26)
[2017-07-28] MEDS: MULTIPLE VITAMIN TAB PO SCH (09:20)
[2017-07-28] MEDS: ZINC SULFATE 220 MG CAP PO SCH ×2 (09:20→21:31)
[2017-07-28] MEDS: ASCORBIC ACID 500 MG TAB PO SCH ×2 (09:20→21:31)
[2017-07-28] MEDS: PANTOPRAZOLE 40 MG TAB PO SCH ×2 (09:21→21:31)
[2017-07-28] MEDS: HYDROcodone-ACET 5/325MG TAB PO PRN (09:21)
[2017-07-28] MEDS: FUROSEMIDE 20 MG TAB PO SCH (09:21)
[2017-07-28] MEDS: APIXABAN 5 MG TAB PO SCH ×2 (09:21→21:31)
[2017-07-28] MEDS: POTASSIUM CHL 10 Meq TABLET PO SCH (09:22)
[2017-07-28] MEDS: PSYLLIUM PWD 6 GM PKG PO SCH ×2 (09:22→21:31)
[2017-07-28 12:23] VITALS: BP 99/46
[2017-07-28 16:34] VITALS: BP 107/52
[2017-07-28] MEDS: LORazepam 0.5 MG TAB PO PRN (21:32)
[2017-07-28 21:35] VITALS: BP 86/53
[2017-07-29 05:45] VITALS: BP 84/49
[2017-07-29 06:10] VITALS: BP 91/55
[2017-07-29] MEDS: LINEZOLID 600MG/300ML 300 ML IV SCH ×2 (06:13→18:31)
[2017-07-29] MEDS: APIXABAN 5 MG TAB PO SCH ×2 (08:36→21:42)
[2017-07-29] MEDS: ASCORBIC ACID 500 MG TAB PO SCH ×2 (08:36→21:42)
[2017-07-29] MEDS: ZINC SULFATE 220 MG CAP PO SCH ×2 (08:37→21:42)
[2017-07-29] MEDS: HYDROcodone-ACET 5/325MG TAB PO PRN (08:37)
[2017-07-29] MEDS: PANTOPRAZOLE 40 MG TAB PO SCH ×2 (08:37→21:42)
[2017-07-29] MEDS: POTASSIUM CHL 10 Meq TABLET PO SCH (08:37)
[2017-07-29] MEDS: FUROSEMIDE 20 MG TAB PO SCH (08:40)
[2017-07-29 09:00] VITALS: BP 84/58
[2017-07-29] MEDS: PSYLLIUM PWD 6 GM PKG PO SCH ×2 (10:00→21:42)
[2017-07-29] MEDS: ERTAPENEM SOD INJ 1 GM in SODIUM CHL 0.9% 50 ML IV SCH (11:31)
[2017-07-29] MEDS: BOOST 8 ounces PO SCH ×2 (11:31→18:31)
[2017-07-29] MEDS: PRO-STAT 64 30ML PO SCH ×2 (11:31→18:31)
[2017-07-29] MEDS: MULTIPLE VITAMIN TAB PO SCH (11:31)
[2017-07-29 13:00] VITALS: BP 85/43
[2017-07-29 16:46] VITALS: BP 87/37
[2017-07-29] MEDS: DIPHENOXYLATE W/ATROPINE 2.5 MG TAB PO PRN (21:43)
[2017-07-29] MEDS: LORazepam 0.5 MG TAB PO PRN (21:43)
[2017-07-29 22:00] VITALS: BP 89/55
[2017-07-30] MEDS: LINEZOLID 600MG/300ML 300 ML IV SCH ×2 (04:55→18:13)
[2017-07-30] MEDS: DIPHENOXYLATE W/ATROPINE 2.5 MG TAB PO PRN ×3 (04:56→09:00)
[2017-07-30 05:00] VITALS: BP 89/55
[2017-07-30] MEDS: PANTOPRAZOLE 40 MG TAB PO SCH ×2 (08:58→21:22)
[2017-07-30] MEDS: ZINC SULFATE 220 MG CAP PO SCH ×2 (08:58→21:22)
[2017-07-30] MEDS: MULTIPLE VITAMIN TAB PO SCH (08:58)
[2017-07-30] MEDS: APIXABAN 5 MG TAB PO SCH ×2 (08:59→21:22)
[2017-07-30] MEDS: HYDROcodone-ACET 5/325MG TAB PO PRN (08:59)
[2017-07-30] MEDS: ASCORBIC ACID 500 MG TAB PO SCH ×2 (08:59→21:22)
[2017-07-30] MEDS: ERTAPENEM SOD INJ 1 GM in SODIUM CHL 0.9% 50 ML IV SCH (08:59)
[2017-07-30 09:00] VITALS: BP 88/51
[2017-07-30] MEDS: PRO-STAT 64 30ML PO SCH ×2 (09:18→18:13)
[2017-07-30] MEDS: BOOST 8 ounces PO SCH ×3 (09:18→18:14)
[2017-07-30 13:00] VITALS: BP 87/57
[2017-07-30 17:00] VITALS: BP 83/55
[2017-07-30] MEDS: PSYLLIUM PWD 6 GM PKG PO SCH (20:55)
[2017-07-30] MEDS: LORazepam 0.5 MG TAB PO PRN (21:23)
[2017-07-30 22:00] VITALS: BP 80/47
[2017-07-31] MEDS: DIPHENOXYLATE W/ATROPINE 2.5 MG TAB PO PRN ×3 (00:46→13:02)
[2017-07-31 05:00] VITALS: BP 81/44
[2017-07-31] MEDS: LINEZOLID 600MG/300ML 300 ML IV SCH ×2 (05:30→17:57)
[2017-07-31 06:54] LABS: Basophils # (auto) 0.1 uL; Basophils % (auto) 1.4 % (0.0-2.0); Eosinophils # (auto) 0.2 uL; Eosinophils % (auto) 3.2 % (0.0-7.0); Hematocrit 30.5 % (41.0-53.0); Lymphocytes # (auto) 0.9 uL; Lymphocytes % (auto) 17.2 % (10.0-50.0); Mean Corpuscular Hemoglobin 31.8 pg (28.0-32.0); Mean Corpuscular Hgb Conc. 32.7 g/dL (32.0-36.0); Mean Corpuscular Volume 97.3 fL (80.0-100.0); Monocytes # (auto) 0.4 uL; Monocytes % (auto) 7.8 % (0.0-12.0); Neutrophils # (auto) 3.6 uL; Neutrophils % (auto) 70.4 % (37.0-80.0); Nucleated Red Blood Cells % 0.1 %; Platelet Count (auto) 407 10^3/uL (140-450); Red Blood Cells 3.13 10^6/uL (4.5-5.90); Red Cell Distribution Width 17.6 % (11.8-14.3); White Blood Cell 5.1 10^3/uL (4.4-10.8)
[2017-07-31 06:55] LABS: BUN/Creatinine Ratio 26.6; Potassium 3.9 mmol/L (3.5-5.1)
[2017-07-31 08:36] VITALS: BP 93/56
[2017-07-31] MEDS: PSYLLIUM PWD 6 GM PKG PO SCH ×2 (10:00→21:31)
[2017-07-31] MEDS: FUROSEMIDE 20 MG TAB PO SCH (10:00)
[2017-07-31] MEDS: POTASSIUM CHL 10 Meq TABLET PO SCH (10:00)
[2017-07-31] MEDS: BOOST 8 ounces PO SCH ×3 (10:40→17:57)
[2017-07-31] MEDS: ZINC SULFATE 220 MG CAP PO SCH ×2 (10:41→21:31)
[2017-07-31] MEDS: HYDROcodone-ACET 5/325MG TAB PO PRN (10:41)
[2017-07-31] MEDS: PRO-STAT 64 30ML PO SCH ×2 (10:41→17:58)
[2017-07-31] MEDS: PANTOPRAZOLE 40 MG TAB PO SCH (10:41)
[2017-07-31] MEDS: ASCORBIC ACID 500 MG TAB PO SCH ×2 (10:41→21:31)
[2017-07-31] MEDS: APIXABAN 5 MG TAB PO SCH ×2 (10:42→21:31)
[2017-07-31] MEDS: MULTIPLE VITAMIN TAB PO SCH (10:42)
[2017-07-31] MEDS: ERTAPENEM SOD INJ 1 GM in SODIUM CHL 0.9% 50 ML IV SCH (11:14)
[2017-07-31 11:28] VITALS: BP 89/55
[2017-07-31 17:09] VITALS: BP 100/49
[2017-07-31] MEDS: LORazepam 0.5 MG TAB PO PRN (21:32)
[2017-07-31 22:00] VITALS: BP 83/51
[2017-08-01] MEDS: DIPHENOXYLATE W/ATROPINE 2.5 MG TAB PO PRN ×3 (04:55→19:02)
[2017-08-01 05:00] VITALS: BP 91/62
[2017-08-01] MEDS: LINEZOLID 600MG/300ML 300 ML IV SCH ×2 (06:41→18:37)
[2017-08-01] MEDS: HYDROcodone-ACET 5/325MG TAB PO PRN (08:44)
[2017-08-01] MEDS: MULTIPLE VITAMIN TAB PO SCH (08:45)
[2017-08-01] MEDS: APIXABAN 5 MG TAB PO SCH ×2 (08:45→21:21)
[2017-08-01] MEDS: ASCORBIC ACID 500 MG TAB PO SCH ×2 (08:45→21:21)
[2017-08-01] MEDS: FUROSEMIDE 20 MG TAB PO SCH (08:45)
[2017-08-01] MEDS: PANTOPRAZOLE 40 MG TAB PO SCH (08:45)
[2017-08-01] MEDS: PRO-STAT 64 30ML PO SCH ×2 (08:46→18:37)
[2017-08-01] MEDS: ZINC SULFATE 220 MG CAP PO SCH ×2 (08:46→21:20)
[2017-08-01] MEDS: POTASSIUM CHL 10 Meq TABLET PO SCH (08:46)
[2017-08-01] MEDS: ERTAPENEM SOD INJ 1 GM in SODIUM CHL 0.9% 50 ML IV SCH (08:46)
[2017-08-01] MEDS: PSYLLIUM PWD 6 GM PKG PO SCH ×2 (08:46→21:21)
[2017-08-01] MEDS: BOOST 8 ounces PO SCH ×3 (08:47→18:38)
[2017-08-01 09:00] VITALS: BP 91/55
[2017-08-01 13:00] VITALS: BP 83/47
[2017-08-01 17:51] VITALS: BP 83/51
[2017-08-01] MEDS: LORazepam 0.5 MG TAB PO PRN (21:20)
[2017-08-01 22:00] VITALS: BP 80/51
[2017-08-02] MEDS: DIPHENOXYLATE W/ATROPINE 2.5 MG TAB PO PRN ×3 (00:41→17:06)
[2017-08-02 05:00] VITALS: BP 85/55
[2017-08-02] MEDS: LINEZOLID 600MG/300ML 300 ML IV SCH ×2 (05:58→17:06)
[2017-08-02] MEDS: PRO-STAT 64 30ML PO SCH ×2 (08:00→18:11)
[2017-08-02] MEDS: BOOST 8 ounces PO SCH ×3 (08:00→18:10)
[2017-08-02] MEDS: HYDROcodone-ACET 5/325MG TAB PO PRN (08:32)
[2017-08-02] MEDS: PSYLLIUM PWD 6 GM PKG PO SCH (08:39)
[2017-08-02 09:00] VITALS: BP 94/47
[2017-08-02] MEDS: FUROSEMIDE 20 MG TAB PO SCH (10:00)
[2017-08-02] MEDS: POTASSIUM CHL 10 Meq TABLET PO SCH (10:00)
[2017-08-02] MEDS ORDERED: KETOROLAC TROMETH 30 MG/ML 1ML VIAL IV ONE (12:00)
[2017-08-02 13:00] VITALS: BP 85/58
[2017-08-02] MEDS: APIXABAN 5 MG TAB PO SCH ×2 (13:37→21:23)
[2017-08-02] MEDS: ERTAPENEM SOD INJ 1 GM in SODIUM CHL 0.9% 50 ML IV SCH (13:37)
[2017-08-02] MEDS: ZINC SULFATE 220 MG CAP PO SCH ×2 (13:37→21:23)
[2017-08-02] MEDS: MULTIPLE VITAMIN TAB PO SCH (13:38)
[2017-08-02] MEDS: ASCORBIC ACID 500 MG TAB PO SCH ×2 (13:38→21:22)
[2017-08-02] MEDS: PANTOPRAZOLE 40 MG TAB PO SCH (13:38)
[2017-08-02 17:00] VITALS: BP 87/53
[2017-08-02] MEDS: LORazepam 0.5 MG TAB PO PRN (21:23)
[2017-08-02 22:00] VITALS: BP 98/57
[2017-08-03] MEDS: DIPHENOXYLATE W/ATROPINE 2.5 MG TAB PO PRN ×2 (00:40→10:52)
[2017-08-03] MEDS: HYDROcodone-ACET 5/325MG TAB PO PRN ×2 (00:41→10:50)
[2017-08-03 05:00] VITALS: BP 91/51
[2017-08-03] MEDS: LINEZOLID 600MG/300ML 300 ML IV SCH ×2 (05:45→17:42)
[2017-08-03] MEDS: PRO-STAT 64 30ML PO SCH ×2 (08:08→17:43)
[2017-08-03] MEDS: BOOST 8 ounces PO SCH ×3 (08:08→17:43)
[2017-08-03 09:00] VITALS: BP 83/53
[2017-08-03] MEDS: FUROSEMIDE 20 MG TAB PO SCH (10:00)
[2017-08-03] MEDS: ERTAPENEM SOD INJ 1 GM in SODIUM CHL 0.9% 50 ML IV SCH (10:49)
[2017-08-03] MEDS: MULTIPLE VITAMIN TAB PO SCH (10:50)
[2017-08-03] MEDS: POTASSIUM CHL 10 Meq TABLET PO SCH (10:51)
[2017-08-03] MEDS: APIXABAN 5 MG TAB PO SCH ×2 (10:51→21:30)
[2017-08-03] MEDS: ASCORBIC ACID 500 MG TAB PO SCH ×2 (10:51→21:29)
[2017-08-03] MEDS: ZINC SULFATE 220 MG CAP PO SCH ×2 (10:51→21:30)
[2017-08-03] MEDS: PANTOPRAZOLE 40 MG TAB PO SCH (10:51)
[2017-08-03 17:00] VITALS: BP 84/57
[2017-08-03] MEDS: LORazepam 0.5 MG TAB PO PRN (21:29)
[2017-08-03 22:45] VITALS: BP 85/56
[2017-08-04] MEDS: DIPHENOXYLATE W/ATROPINE 2.5 MG TAB PO PRN ×2 (02:23→09:32)
[2017-08-04] MEDS: HYDROcodone-ACET 5/325MG TAB PO PRN ×2 (02:23→09:33)
[2017-08-04 05:19] VITALS: BP 76/49
[2017-08-04] MEDS: LINEZOLID 600MG/300ML 300 ML IV SCH ×2 (05:58→18:51)
[2017-08-04 09:00] VITALS: BP 86/55
[2017-08-04] MEDS: BOOST 8 ounces PO SCH ×3 (09:30→18:51)
[2017-08-04] MEDS: ZINC SULFATE 220 MG CAP PO SCH ×2 (09:31→21:28)
[2017-08-04] MEDS: POTASSIUM CHL 10 Meq TABLET PO SCH (09:31)
[2017-08-04] MEDS: APIXABAN 5 MG TAB PO SCH ×2 (09:31→21:28)
[2017-08-04] MEDS: PRO-STAT 64 30ML PO SCH ×2 (09:31→18:51)
[2017-08-04] MEDS: ERTAPENEM SOD INJ 1 GM in SODIUM CHL 0.9% 50 ML IV SCH (09:31)
[2017-08-04] MEDS: ASCORBIC ACID 500 MG TAB PO SCH ×2 (09:32→21:28)
[2017-08-04] MEDS: MULTIPLE VITAMIN TAB PO SCH (09:32)
[2017-08-04] MEDS: PANTOPRAZOLE 40 MG TAB PO SCH (09:32)
[2017-08-04] MEDS: FUROSEMIDE 20 MG TAB PO SCH (09:32)
[2017-08-04 17:00] VITALS: BP 86/51
[2017-08-04] MEDS: LORazepam 0.5 MG TAB PO PRN (21:28)
[2017-08-04 22:26] VITALS: BP 95/61
[2017-08-05 05:40] VITALS: BP 92/51
[2017-08-05] MEDS: LINEZOLID 600MG/300ML 300 ML IV SCH (05:45)
[2017-08-05 06:47] LABS: Basophils # (auto) 0.1 uL; Eosinophils # (auto) 0.2 uL; Eosinophils % (auto) 2.6 % (0.0-7.0); Hematocrit 30.3 % (41.0-53.0); Hemoglobin 9.9 g/dL (13.5-17.5); Lymphocytes # (auto) 0.8 uL; Lymphocytes % (auto) 12.9 % (10.0-50.0); Mean Corpuscular Hgb Conc. 32.7 g/dL (32.0-36.0); Mean Corpuscular Volume 97.8 fL (80.0-100.0); Monocytes # (auto) 0.4 uL; Neutrophils # (auto) 4.7 uL; Neutrophils % (auto) 76.5 % (37.0-80.0); Nucleated Red Blood Cells % 0.2 %; Platelet Count (auto) 309 10^3/uL (140-450); Red Blood Cells 3.09 10^6/uL (4.5-5.90); Red Cell Distribution Width 17.4 % (11.8-14.3); White Blood Cell 6.1 10^3/uL (4.4-10.8)
[2017-08-05 07:01] LABS: Albumin 1.7 g/dL (3.4-5.0); BUN/Creatinine Ratio 29.9; Potassium 4.2 mmol/L (3.5-5.1)
[2017-08-05 07:04] LABS: Bilirubin, Total 0.3 mg/dL (0.2-1.0); Total Protein 5.9 g/dL (6.4-8.2)
[2017-08-05] MEDS: ASCORBIC ACID 500 MG TAB PO SCH ×2 (08:41→22:02)
[2017-08-05] MEDS: PANTOPRAZOLE 40 MG TAB PO SCH (08:41)
[2017-08-05] MEDS: MULTIPLE VITAMIN TAB PO SCH (08:41)
[2017-08-05] MEDS: ZINC SULFATE 220 MG CAP PO SCH ×2 (08:41→22:02)
[2017-08-05] MEDS: FUROSEMIDE 20 MG TAB PO SCH (08:42)
[2017-08-05] MEDS: POTASSIUM CHL 10 Meq TABLET PO SCH (08:42)
[2017-08-05] MEDS: BOOST 8 ounces PO SCH ×3 (08:42→19:21)
[2017-08-05] MEDS: APIXABAN 5 MG TAB PO SCH ×2 (08:42→22:02)
[2017-08-05] MEDS: PRO-STAT 64 30ML PO SCH ×2 (08:42→19:22)
[2017-08-05] MEDS: HYDROcodone-ACET 5/325MG TAB PO PRN (08:42)
[2017-08-05] MEDS: DIPHENOXYLATE W/ATROPINE 2.5 MG TAB PO PRN ×2 (08:48→14:20)
[2017-08-05 09:00] VITALS: BP 136/61
[2017-08-05] MEDS: ERTAPENEM SOD INJ 1 GM in SODIUM CHL 0.9% 50 ML IV SCH (10:00)
[2017-08-05] MEDS: FLORASTOR (S. BOULARDII) 250 MG CAP PO SCH (12:15)
[2017-08-05 13:00] VITALS: BP 90/55
[2017-08-05] MEDS ORDERED: MORPHINE SULFATE 4 MG/ML SYR/VIAL ONE (15:44)
[2017-08-05] MEDS: MORPHINE SULFATE 8mg/ml INJ SDV IV PRN (16:00)
[2017-08-05 17:06] VITALS: BP 109/79
[2017-08-05] MEDS: LINEZOLID 600MG TABLET PO SCH (19:22)
[2017-08-05 20:00] VITALS: BP 82/54
[2017-08-05 22:00] VITALS: BP 82/54
[2017-08-05] MEDS: TEMAZEPAM 15 MG CAP PO PRN (22:17)
[2017-08-06 05:00] VITALS: BP 98/60
[2017-08-06] MEDS: LINEZOLID 600MG TABLET PO SCH ×2 (06:19→19:16)
[2017-08-06] MEDS: BOOST 8 ounces PO SCH ×3 (08:26→19:16)
[2017-08-06] MEDS: PRO-STAT 64 30ML PO SCH ×2 (08:26→19:15)
[2017-08-06] MEDS: ERTAPENEM SOD INJ 1 GM in SODIUM CHL 0.9% 50 ML IV SCH (08:27)
[2017-08-06] MEDS: POTASSIUM CHL 10 Meq TABLET PO SCH (08:27)
[2017-08-06] MEDS: ZINC SULFATE 220 MG CAP PO SCH ×2 (08:27→21:24)
[2017-08-06] MEDS: FLORASTOR (S. BOULARDII) 250 MG CAP PO SCH (08:27)
[2017-08-06] MEDS: APIXABAN 5 MG TAB PO SCH ×2 (08:27→21:25)
[2017-08-06] MEDS: FUROSEMIDE 20 MG TAB PO SCH (08:27)
[2017-08-06] MEDS: PANTOPRAZOLE 40 MG TAB PO SCH (08:28)
[2017-08-06] MEDS: MULTIPLE VITAMIN TAB PO SCH (08:28)
[2017-08-06] MEDS: ASCORBIC ACID 500 MG TAB PO SCH ×2 (08:28→21:24)
[2017-08-06] MEDS: HYDROcodone-ACET 5/325MG TAB PO PRN (08:29)
[2017-08-06] MEDS: DIPHENOXYLATE W/ATROPINE 2.5 MG TAB PO PRN (08:29)
[2017-08-06 10:19] VITALS: BP 97/43
[2017-08-06 12:57] LABS: % Iron Saturation 37.1 % (20-55)
[2017-08-06 13:39] LABS: Folate (Folic Acid) 21.95 ng/mL (5.38-24)
[2017-08-06 15:15] VITALS: BP 97/50
[2017-08-06] MEDS: MORPHINE SULFATE 8mg/ml INJ SDV IV PRN (16:00)
[2017-08-06 17:27] VITALS: BP 97/55
[2017-08-06 20:00] VITALS: BP 86/50
[2017-08-06] MEDS: TEMAZEPAM 15 MG CAP PO PRN (21:25)
[2017-08-06 21:30] VITALS: BP 86/50
[2017-08-07 05:00] VITALS: BP 81/53
[2017-08-07] MEDS: LINEZOLID 600MG TABLET PO SCH ×2 (06:41→18:55)
[2017-08-07 08:30] VITALS: BP 89/51
[2017-08-07] MEDS: HYDROcodone-ACET 5/325MG TAB PO PRN (08:46)
[2017-08-07] MEDS: APIXABAN 5 MG TAB PO SCH ×2 (08:46→21:48)
[2017-08-07] MEDS: ZINC SULFATE 220 MG CAP PO SCH ×2 (08:46→21:48)
[2017-08-07] MEDS: MULTIPLE VITAMIN TAB PO SCH (08:46)
[2017-08-07] MEDS: FLORASTOR (S. BOULARDII) 250 MG CAP PO SCH (08:46)
[2017-08-07] MEDS: PANTOPRAZOLE 40 MG TAB PO SCH (08:46)
[2017-08-07] MEDS: BOOST 8 ounces PO SCH ×3 (08:47→18:55)
[2017-08-07] MEDS: PRO-STAT 64 30ML PO SCH ×2 (08:47→18:54)
[2017-08-07] MEDS: ERTAPENEM SOD INJ 1 GM in SODIUM CHL 0.9% 50 ML IV SCH (08:47)
[2017-08-07] MEDS: DIPHENOXYLATE W/ATROPINE 2.5 MG TAB PO PRN (08:47)
[2017-08-07] MEDS: ASCORBIC ACID 500 MG TAB PO SCH ×2 (10:00→21:48)
[2017-08-07] MEDS: FUROSEMIDE 20 MG TAB PO SCH (10:00)
[2017-08-07] MEDS: POTASSIUM CHL 10 Meq TABLET PO SCH (10:00)
[2017-08-07] MEDS ORDERED: LORazepam 0.5 MG TAB PO PRN (12:00)
[2017-08-07] MEDS ORDERED: ACETAMINOPHEN 500 MG TAB PO PRN (12:00)
[2017-08-07] MEDS ORDERED: MORPHINE SULFATE 4 MG/ML SYR/VIAL IV PRN (12:00)
[2017-08-07] MEDS ORDERED: PROMETHAZINE HCL 6.25 MG/5 ML ORAL SYRUP PO PRN (12:00)
[2017-08-07 12:30] VITALS: BP 82/52
[2017-08-07 16:27] VITALS: BP 88/48
[2017-08-07] MEDS: TEMAZEPAM 15 MG CAP PO PRN (21:48)
[2017-08-07 22:00] VITALS: BP 84/53
[2017-08-08 05:00] VITALS: BP 88/49
[2017-08-08] MEDS: LINEZOLID 600MG TABLET PO SCH (05:28)
[2017-08-08 08:43] VITALS: BP 79/42
[2017-08-08] MEDS: HYDROcodone-ACET 5/325MG TAB PO PRN ×2 (09:08→16:20)
[2017-08-08] MEDS: APIXABAN 5 MG TAB PO SCH ×2 (09:08→21:25)
[2017-08-08] MEDS: PANTOPRAZOLE 40 MG TAB PO SCH (09:08)
[2017-08-08] MEDS: ZINC SULFATE 220 MG CAP PO SCH ×2 (09:08→21:25)
[2017-08-08] MEDS: FLORASTOR (S. BOULARDII) 250 MG CAP PO SCH (09:08)
[2017-08-08] MEDS: ASCORBIC ACID 500 MG TAB PO SCH ×2 (09:09→21:25)
[2017-08-08] MEDS: MULTIPLE VITAMIN TAB PO SCH (09:09)
[2017-08-08] MEDS: BOOST 8 ounces PO SCH ×3 (09:09→17:42)
[2017-08-08] MEDS: POTASSIUM CHL 10 Meq TABLET PO SCH (09:09)
[2017-08-08] MEDS: FUROSEMIDE 20 MG TAB PO SCH (09:09)
[2017-08-08] MEDS: PRO-STAT 64 30ML PO SCH ×2 (09:09→17:42)
[2017-08-08] MEDS ORDERED: ERTAPENEM SOD INJ 1 GM in SODIUM CHL 0.9% 50 ML IV SCH (10:00)
[2017-08-08] MEDS ORDERED: CHOLECALCIFEROL (VITD3) 1,000 UNIT TAB PO ONE (11:30)
[2017-08-08 13:00] VITALS: BP 86/55
[2017-08-08 17:00] VITALS: BP 78/54
[2017-08-08] MEDS: TEMAZEPAM 15 MG CAP PO PRN (21:25)
[2017-08-08 22:00] VITALS: BP 91/49
[2017-08-09] VITALS (7 sets, daily range): BP systolic 73–100; BP diastolic 45–59
[2017-08-09] MEDS: PRO-STAT 64 30ML PO SCH ×2 (09:41→18:11)
[2017-08-09] MEDS: BOOST 8 ounces PO SCH ×3 (09:41→18:12)
[2017-08-09] MEDS: FLORASTOR (S. BOULARDII) 250 MG CAP PO SCH (09:41)
[2017-08-09] MEDS: CHOLECALCIFEROL (VITD3) 1,000 UNIT TAB PO SCH (09:42)
[2017-08-09] MEDS: FUROSEMIDE 20 MG TAB PO SCH (09:43)
[2017-08-09] MEDS: ASCORBIC ACID 500 MG TAB PO SCH ×2 (09:43→21:09)
[2017-08-09] MEDS: MULTIPLE VITAMIN TAB PO SCH (09:43)
[2017-08-09] MEDS: APIXABAN 5 MG TAB PO SCH ×2 (09:43→21:09)
[2017-08-09] MEDS: PANTOPRAZOLE 40 MG TAB PO SCH (09:43)
[2017-08-09] MEDS: ZINC SULFATE 220 MG CAP PO SCH ×2 (09:43→21:09)
[2017-08-09] MEDS: HYDROcodone-ACET 5/325MG TAB PO PRN ×2 (09:44→21:21)
[2017-08-09] MEDS: POTASSIUM CHL 10 Meq TABLET PO SCH (09:44)
[2017-08-09] MEDS: TEMAZEPAM 15 MG CAP PO PRN (21:21)
[2017-08-10 05:00] VITALS: BP 96/56
[2017-08-10 08:47] VITALS: BP 87/54
[2017-08-10] MEDS: CHOLECALCIFEROL (VITD3) 1,000 UNIT TAB PO SCH (09:58)
[2017-08-10] MEDS: MULTIPLE VITAMIN TAB PO SCH (09:58)
[2017-08-10] MEDS: ASCORBIC ACID 500 MG TAB PO SCH ×2 (09:58→21:35)
[2017-08-10] MEDS: DIPHENOXYLATE W/ATROPINE 2.5 MG TAB PO PRN (09:59)
[2017-08-10] MEDS: FUROSEMIDE 20 MG TAB PO SCH (10:00)
[2017-08-10] MEDS: HYDROcodone-ACET 5/325MG TAB PO PRN (10:00)
[2017-08-10] MEDS: APIXABAN 5 MG TAB PO SCH ×2 (10:00→21:34)
[2017-08-10] MEDS: ZINC SULFATE 220 MG CAP PO SCH ×2 (10:00→21:34)
[2017-08-10] MEDS: PANTOPRAZOLE 40 MG TAB PO SCH (10:00)
[2017-08-10] MEDS: FLORASTOR (S. BOULARDII) 250 MG CAP PO SCH (10:00)
[2017-08-10] MEDS: POTASSIUM CHL 10 Meq TABLET PO SCH (10:00)
[2017-08-10] MEDS: BOOST 8 ounces PO SCH ×3 (10:01→17:44)
[2017-08-10] MEDS: PRO-STAT 64 30ML PO SCH ×2 (10:01→17:44)
[2017-08-10 13:04] VITALS: BP 87/51
[2017-08-10 16:56] VITALS: BP 82/44
[2017-08-10] MEDS: TEMAZEPAM 15 MG CAP PO PRN (21:35)
[2017-08-10 22:00] VITALS: BP 82/49
[2017-08-11 05:00] VITALS: BP 91/61
[2017-08-11] MEDS: HYDROcodone-ACET 5/325MG TAB PO PRN ×2 (08:34→13:30)
[2017-08-11 09:00] VITALS: BP 99/65
[2017-08-11] MEDS: PANTOPRAZOLE 40 MG TAB PO SCH (10:20)
[2017-08-11] MEDS: MULTIPLE VITAMIN TAB PO SCH (10:20)
[2017-08-11] MEDS: ASCORBIC ACID 500 MG TAB PO SCH ×2 (10:21→21:24)
[2017-08-11] MEDS: FUROSEMIDE 20 MG TAB PO SCH (10:21)
[2017-08-11] MEDS: POTASSIUM CHL 10 Meq TABLET PO SCH (10:21)
[2017-08-11] MEDS: APIXABAN 5 MG TAB PO SCH ×2 (10:21→21:24)
[2017-08-11] MEDS: CHOLECALCIFEROL (VITD3) 1,000 UNIT TAB PO SCH (10:21)
[2017-08-11] MEDS: ZINC SULFATE 220 MG CAP PO SCH ×2 (10:21→21:23)
[2017-08-11] MEDS: PRO-STAT 64 30ML PO SCH ×2 (10:22→18:55)
[2017-08-11] MEDS: FLORASTOR (S. BOULARDII) 250 MG CAP PO SCH (10:22)
[2017-08-11] MEDS: BOOST 8 ounces PO SCH ×3 (10:23→18:55)
[2017-08-11] MEDS: DIPHENOXYLATE W/ATROPINE 2.5 MG TAB PO PRN ×2 (10:50→13:32)
[2017-08-11 12:32] VITALS: BP 99/64
[2017-08-11 16:31] VITALS: BP 104/59
[2017-08-11] MEDS: TEMAZEPAM 15 MG CAP PO PRN (21:24)
[2017-08-11 22:00] VITALS: BP 91/57
[2017-08-12 05:00] VITALS: BP 106/62
[2017-08-12] MEDS: APIXABAN 5 MG TAB PO SCH ×2 (08:50→23:22)
[2017-08-12] MEDS: MULTIPLE VITAMIN TAB PO SCH (08:50)
[2017-08-12] MEDS: PRO-STAT 64 30ML PO SCH ×2 (08:50→18:00)
[2017-08-12] MEDS: FLORASTOR (S. BOULARDII) 250 MG CAP PO SCH (08:50)
[2017-08-12] MEDS: BOOST 8 ounces PO SCH ×3 (08:50→18:00)
[2017-08-12] MEDS: DIPHENOXYLATE W/ATROPINE 2.5 MG TAB PO PRN ×2 (08:51→20:29)
[2017-08-12] MEDS: CHOLECALCIFEROL (VITD3) 1,000 UNIT TAB PO SCH (08:51)
[2017-08-12] MEDS: PANTOPRAZOLE 40 MG TAB PO SCH (08:51)
[2017-08-12] MEDS: ASCORBIC ACID 500 MG TAB PO SCH ×2 (08:51→23:22)
[2017-08-12] MEDS: HYDROcodone-ACET 5/325MG TAB PO PRN (08:52)
[2017-08-12 09:00] VITALS: BP 96/54
[2017-08-12] MEDS: ZINC SULFATE 220 MG CAP PO SCH ×2 (10:00→23:22)
[2017-08-12] MEDS: FUROSEMIDE 20 MG TAB PO SCH (10:00)
[2017-08-12] MEDS: POTASSIUM CHL 10 Meq TABLET PO SCH (10:00)
[2017-08-12 13:00] VITALS: BP 88/49
[2017-08-12 22:00] VITALS: BP 113/57
[2017-08-12] MEDS: TEMAZEPAM 15 MG CAP PO PRN (23:30)
[2017-08-13 05:00] VITALS: BP 108/57
[2017-08-13 09:00] VITALS: BP 87/48
[2017-08-13] MEDS: PRO-STAT 64 30ML PO SCH ×2 (09:59→18:00)
[2017-08-13] MEDS: ZINC SULFATE 220 MG CAP PO SCH ×2 (09:59→22:07)
[2017-08-13] MEDS: BOOST 8 ounces PO SCH ×3 (09:59→18:00)
[2017-08-13] MEDS: ASCORBIC ACID 500 MG TAB PO SCH ×2 (10:00→22:09)
[2017-08-13] MEDS: POTASSIUM CHL 10 Meq TABLET PO SCH (10:00)
[2017-08-13] MEDS: FLORASTOR (S. BOULARDII) 250 MG CAP PO SCH (10:00)
[2017-08-13] MEDS: PANTOPRAZOLE 40 MG TAB PO SCH (10:00)
[2017-08-13] MEDS: APIXABAN 5 MG TAB PO SCH ×2 (10:00→22:09)
[2017-08-13] MEDS: FUROSEMIDE 20 MG TAB PO SCH (10:00)
[2017-08-13] MEDS: MULTIPLE VITAMIN TAB PO SCH (10:00)
[2017-08-13] MEDS: CHOLECALCIFEROL (VITD3) 1,000 UNIT TAB PO SCH (10:00)
[2017-08-13] MEDS: HYDROcodone-ACET 5/325MG TAB PO PRN (10:01)
[2017-08-13] MEDS: DIPHENOXYLATE W/ATROPINE 2.5 MG TAB PO PRN (10:01)
[2017-08-13 13:00] VITALS: BP 84/51
[2017-08-13 17:00] VITALS: BP 95/57
[2017-08-13 21:52] VITALS: BP 93/64
[2017-08-13] MEDS: TEMAZEPAM 15 MG CAP PO PRN (22:10)
[2017-08-14] MEDS: DIPHENOXYLATE W/ATROPINE 2.5 MG TAB PO PRN ×3 (03:30→10:00)
[2017-08-14] MEDS: HYDROcodone-ACET 5/325MG TAB PO PRN ×3 (03:30→21:37)
[2017-08-14 05:00] VITALS: BP 89/56
[2017-08-14] MEDS: BOOST 8 ounces PO SCH ×3 (08:00→18:12)
[2017-08-14] MEDS: PRO-STAT 64 30ML PO SCH ×2 (08:00→18:13)
[2017-08-14 09:00] VITALS: BP 96/52
[2017-08-14] MEDS: FUROSEMIDE 20 MG TAB PO SCH (10:00)
[2017-08-14] MEDS: POTASSIUM CHL 10 Meq TABLET PO SCH (10:00)
[2017-08-14] MEDS: FLORASTOR (S. BOULARDII) 250 MG CAP PO SCH (10:00)
[2017-08-14] MEDS: MULTIPLE VITAMIN TAB PO SCH (10:00)
[2017-08-14] MEDS: PANTOPRAZOLE 40 MG TAB PO SCH (10:00)
[2017-08-14] MEDS: ASCORBIC ACID 500 MG TAB PO SCH ×2 (10:00→21:37)
[2017-08-14] MEDS: ZINC SULFATE 220 MG CAP PO SCH ×2 (10:00→21:37)
[2017-08-14] MEDS: APIXABAN 5 MG TAB PO SCH ×2 (10:00→21:37)
[2017-08-14] MEDS: CHOLECALCIFEROL (VITD3) 1,000 UNIT TAB PO SCH (10:00)
[2017-08-14 13:00] VITALS: BP 99/52
[2017-08-14] MEDS ORDERED: LORazepam 0.5 MG TAB PO PRN (14:45)
[2017-08-14] MEDS ORDERED: MORPHINE SULFATE 4 MG/ML SYR/VIAL IV PRN (14:45)
[2017-08-14 17:00] VITALS: BP 95/50
[2017-08-14] MEDS: TEMAZEPAM 15 MG CAP PO PRN (21:41)
[2017-08-14 22:01] VITALS: BP 89/50
[2017-08-15 05:00] VITALS: BP 115/55
[2017-08-15 09:00] VITALS: BP 105/56
[2017-08-15] MEDS: PRO-STAT 64 30ML PO SCH ×2 (09:05→19:23)
[2017-08-15] MEDS: BOOST 8 ounces PO SCH ×3 (09:05→19:23)
[2017-08-15] MEDS: HYDROcodone-ACET 5/325MG TAB PO PRN (09:06)
[2017-08-15] MEDS: APIXABAN 5 MG TAB PO SCH ×2 (09:58→22:20)
[2017-08-15] MEDS: ZINC SULFATE 220 MG CAP PO SCH ×2 (09:58→22:20)
[2017-08-15] MEDS: PANTOPRAZOLE 40 MG TAB PO SCH (09:59)
[2017-08-15] MEDS: FLORASTOR (S. BOULARDII) 250 MG CAP PO SCH (09:59)
[2017-08-15] MEDS: MULTIPLE VITAMIN TAB PO SCH (09:59)
[2017-08-15] MEDS: CHOLECALCIFEROL (VITD3) 1,000 UNIT TAB PO SCH (09:59)
[2017-08-15] MEDS: ASCORBIC ACID 500 MG TAB PO SCH ×2 (09:59→22:20)
[2017-08-15] MEDS: POTASSIUM CHL 10 Meq TABLET PO SCH (10:00)
[2017-08-15] MEDS: FUROSEMIDE 20 MG TAB PO SCH (10:00)
[2017-08-15 13:00] VITALS: BP 93/53
[2017-08-15 17:00] VITALS: BP 94/54
[2017-08-15] MEDS ORDERED: [UNRECOGNIZED DRUG - OTHER] IV NR ×9 (20:00)
[2017-08-15] MEDS ORDERED: FAT EMULSION IV NR ×9 (20:00)
[2017-08-15] MEDS ORDERED: POTASSIUM PHOSPHATE IV NR ×9 (20:00)
[2017-08-15] MEDS ORDERED: POTASSIUM CHLORIDE IV NR ×9 (20:00)
[2017-08-15 22:14] VITALS: BP 102/52
[2017-08-15] MEDS: TEMAZEPAM 15 MG CAP PO PRN (22:21)
[2017-08-16] VITALS (7 sets, daily range): BP systolic 77–99; BP diastolic 44–66
[2017-08-16] MEDS: BOOST 8 ounces PO SCH ×3 (07:44→18:26)
[2017-08-16] MEDS: PRO-STAT 64 30ML PO SCH ×2 (07:44→18:26)
[2017-08-16] MEDS: ZINC SULFATE 220 MG CAP PO SCH ×2 (09:58→21:52)
[2017-08-16] MEDS: FUROSEMIDE 20 MG TAB PO SCH (09:58)
[2017-08-16] MEDS: POTASSIUM CHL 10 Meq TABLET PO SCH (09:58)
[2017-08-16] MEDS: APIXABAN 5 MG TAB PO SCH ×2 (09:58→21:52)
[2017-08-16] MEDS: FLORASTOR (S. BOULARDII) 250 MG CAP PO SCH (09:58)
[2017-08-16] MEDS: CHOLECALCIFEROL (VITD3) 1,000 UNIT TAB PO SCH (09:59)
[2017-08-16] MEDS: ASCORBIC ACID 500 MG TAB PO SCH ×2 (09:59→21:52)
[2017-08-16] MEDS: MULTIPLE VITAMIN TAB PO SCH (09:59)
[2017-08-16] MEDS: PANTOPRAZOLE 40 MG TAB PO SCH (09:59)
[2017-08-16] MEDS ORDERED: CITALOPRAM HYDROBR 20 MG TAB PO ONE (14:15)
[2017-08-17 05:00] VITALS: BP 103/55
[2017-08-17] MEDS: BOOST 8 ounces PO SCH ×3 (08:28→18:54)
[2017-08-17] MEDS: PRO-STAT 64 30ML PO SCH ×2 (08:28→18:55)
[2017-08-17 09:00] VITALS: BP 88/60
[2017-08-17] MEDS: FUROSEMIDE 20 MG TAB PO SCH (10:00)
[2017-08-17] MEDS: FLORASTOR (S. BOULARDII) 250 MG CAP PO SCH (10:20)
[2017-08-17] MEDS: PANTOPRAZOLE 40 MG TAB PO SCH (10:20)
[2017-08-17] MEDS: CHOLECALCIFEROL (VITD3) 1,000 UNIT TAB PO SCH (10:20)
[2017-08-17] MEDS: APIXABAN 5 MG TAB PO SCH ×2 (10:20→22:13)
[2017-08-17] MEDS: ASCORBIC ACID 500 MG TAB PO SCH ×2 (10:21→22:13)
[2017-08-17] MEDS: ZINC SULFATE 220 MG CAP PO SCH ×2 (10:21→22:13)
[2017-08-17] MEDS: CITALOPRAM HYDROBR 20 MG TAB PO SCH (10:21)
[2017-08-17] MEDS: POTASSIUM CHL 10 Meq TABLET PO SCH (10:21)
[2017-08-17] MEDS: MULTIPLE VITAMIN TAB PO SCH (10:23)
[2017-08-17] MEDS ORDERED: LEVOFLOXACIN 500 MG TAB PO ONE (10:45)
[2017-08-17 13:00] VITALS: BP 96/59
[2017-08-17] MEDS: ALBUMIN 25% 100 ML IV SCH ×2 (13:36→19:21)
[2017-08-17 17:07] VITALS: BP 97/64
[2017-08-17 22:00] VITALS: BP 81/46
[2017-08-18] MEDS: DIPHENOXYLATE W/ATROPINE 2.5 MG TAB PO PRN ×2 (00:06→21:11)
[2017-08-18] MEDS: ALBUMIN 25% 100 ML IV SCH (03:20)
[2017-08-18 05:00] VITALS: BP 90/53
[2017-08-18 06:04] LABS: Basophils # (auto) 0 uL; Basophils % (auto) 0.6 % (0.0-2.0); Eosinophils # (auto) 0.1 uL; Eosinophils % (auto) 1.3 % (0.0-7.0); Hematocrit 30.3 % (41.0-53.0); Hemoglobin 9.6 g/dL (13.5-17.5); Lymphocytes # (auto) 0.6 uL; Lymphocytes % (auto) 7.8 % (10.0-50.0); Mean Corpuscular Hemoglobin 31.5 pg (28.0-32.0); Mean Corpuscular Hgb Conc. 31.5 g/dL (32.0-36.0); Mean Corpuscular Volume 99.8 fL (80.0-100.0); Monocytes # (auto) 0.7 uL; Monocytes % (auto) 8.8 % (0.0-12.0); Neutrophils # (auto) 6.4 uL; Neutrophils % (auto) 81.5 % (37.0-80.0); Nucleated Red Blood Cells % 0.2 %; Platelet Count (auto) 418 10^3/uL (140-450); Red Blood Cells 3.04 10^6/uL (4.5-5.90); Red Cell Distribution Width 16.4 % (11.8-14.3); White Blood Cell 7.8 10^3/uL (4.4-10.8)
[2017-08-18 06:32] LABS: Albumin 2.3 g/dL (3.4-5.0); BUN/Creatinine Ratio 53.3; Calcium 8.2 mg/dL (8.5-10.1); Potassium 4.9 mmol/L (3.5-5.1)
[2017-08-18 09:10] VITALS: BP 93/53
[2017-08-18] MEDS ORDERED: LEVOFLOXACIN 500 MG TAB PO SCH (10:00)
[2017-08-18] MEDS: FLORASTOR (S. BOULARDII) 250 MG CAP PO SCH (10:00)
[2017-08-18] MEDS: BOOST 8 ounces PO SCH ×3 (10:41→18:02)
[2017-08-18] MEDS: PRO-STAT 64 30ML PO SCH ×2 (10:41→18:02)
[2017-08-18 12:15] VITALS: BP 95/72
[2017-08-18] MEDS: MULTIPLE VITAMIN TAB PO SCH (12:17)
[2017-08-18] MEDS: POTASSIUM CHL 10 Meq TABLET PO SCH (12:17)
[2017-08-18] MEDS: ZINC SULFATE 220 MG CAP PO SCH ×2 (12:17→21:10)
[2017-08-18] MEDS: CHOLECALCIFEROL (VITD3) 1,000 UNIT TAB PO SCH (12:17)
[2017-08-18] MEDS: CITALOPRAM HYDROBR 20 MG TAB PO SCH (12:18)
[2017-08-18] MEDS: LEVOFLOXACIN 500 MG TAB PO SCH (12:18)
[2017-08-18] MEDS: ASCORBIC ACID 500 MG TAB PO SCH ×2 (12:18→21:10)
[2017-08-18] MEDS: APIXABAN 5 MG TAB PO SCH ×2 (12:18→21:10)
[2017-08-18] MEDS: PANTOPRAZOLE 40 MG TAB PO SCH (12:18)
[2017-08-18] MEDS: PIPERACILLIN-TAZOB 3.375GM 100 ML IV SCH ×2 (12:19→18:01)
[2017-08-18] MEDS: FUROSEMIDE 20 MG TAB PO SCH (12:19)
[2017-08-18 16:35] VITALS: BP 115/66
[2017-08-18 22:00] VITALS: BP 91/61
[2017-08-19] VITALS (23 sets, daily range): BP systolic 75–102; BP diastolic 34–59
[2017-08-19] MEDS: PIPERACILLIN-TAZOB 3.375GM 100 ML IV SCH ×4 (00:36→17:30)
[2017-08-19] MEDS: PRO-STAT 64 30ML PO SCH ×2 (08:00→18:00)
[2017-08-19] MEDS: BOOST 8 ounces PO SCH ×3 (08:00→18:00)
[2017-08-19] MEDS: DIPHENOXYLATE W/ATROPINE 2.5 MG TAB PO PRN (10:00)
[2017-08-19] MEDS: FLORASTOR (S. BOULARDII) 250 MG CAP PO SCH (10:00)
[2017-08-19] MEDS: LEVOFLOXACIN 500 MG TAB PO SCH (10:00)
[2017-08-19] MEDS: FUROSEMIDE 20 MG TAB PO SCH (13:00)
[2017-08-19] MEDS: POTASSIUM CHL 10 Meq TABLET PO SCH (13:00)
[2017-08-19] MEDS: MORPHINE SULFATE 8mg/ml INJ SDV IV PRN (13:00)
[2017-08-19] MEDS: APIXABAN 5 MG TAB PO SCH ×2 (13:49→22:00)
[2017-08-19] MEDS: ZINC SULFATE 220 MG CAP PO SCH ×2 (13:49→22:00)
[2017-08-19] MEDS: MULTIPLE VITAMIN TAB PO SCH (13:51)
[2017-08-19] MEDS: CHOLECALCIFEROL (VITD3) 1,000 UNIT TAB PO SCH (13:51)
[2017-08-19] MEDS: ASCORBIC ACID 500 MG TAB PO SCH ×2 (13:51→22:00)
[2017-08-19] MEDS: PANTOPRAZOLE 40 MG TAB PO SCH (13:51)
[2017-08-19] MEDS ORDERED: NALOXONE HCL 0.4 MG/ML VIAL ONE ×2 (18:16→18:20)
[2017-08-19] MEDS ORDERED: SODIUM CHLORIDE 0.9% 1,000 ML IV ONE (19:15)
[2017-08-19 20:25] LABS: Basophils # (auto) 0 uL; Eosinophils # (auto) 0 uL; Lymphocytes # (auto) 0.4 uL; Lymphocytes % (auto) 4.6 % (10.0-50.0); Monocytes # (auto) 0.9 uL; Neutrophils # (auto) 7.5 uL; Red Cell Distribution Width 16.7 % (11.8-14.3); White Blood Cell 8.9 10^3/uL (4.4-10.8)
[2017-08-19 20:27] LABS: Basophils % (auto) 0.2 % (0.0-2.0); Eosinophils % (auto) 0.4 % (0.0-7.0); Hematocrit 33.8 % (41.0-53.0); Hemoglobin 10.5 g/dL (13.5-17.5); Mean Corpuscular Hemoglobin 31.9 pg (28.0-32.0); Mean Corpuscular Volume 102.8 fL (80.0-100.0); Monocytes % (auto) 10.1 % (0.0-12.0); Neutrophils % (auto) 84.7 % (37.0-80.0); Nucleated Red Blood Cells % 0.4 %; Platelet Count (auto) 407 10^3/uL (140-450); Red Blood Cells 3.29 10^6/uL (4.5-5.90)
[2017-08-19 20:51] LABS: Alanine Aminotransferase 11 U/L (16-61); Albumin 2.2 g/dL (3.4-5.0); Alkaline Phosphatase 135 U/L (45-117); Aspartate Aminotransferase 9 U/L (15-37); Bilirubin, Total 0.2 mg/dL (0.2-1.0); Total Protein 6.7 g/dL (6.4-8.2)
[2017-08-19 20:56] LABS: Anion Gap 5 (5-15); BUN/Creatinine Ratio 41.7; Blood Urea Nitrogen 35 mg/dL (7-18); Calcium 7.9 mg/dL (8.5-10.1); Carbon Dioxide 31 mmol/L (21-32); Chloride 100 mmol/L (98-107); GFR African American 115 mL/min; GFR Non-African American 95 mL/min; Glucose 122 mg/dL (74-106); Potassium 5.1 mmol/L (3.5-5.1); Sodium 136 mmol/L (136-145)
[2017-08-19] MEDS: NOREPINEPHRINE 8 MG/250ML KIT 250 ML IV SCH (21:33)
[2017-08-19] MEDS: SODIUM CHLORIDE 0.9% 1,000 ML IV SCH (21:33)
[2017-08-20] VITALS (92 sets, daily range): BP systolic 44–148; BP diastolic 15–99
[2017-08-20] MEDS: PIPERACILLIN-TAZOB 3.375GM 100 ML IV SCH ×2 (00:25→06:51)
[2017-08-20 03:55] LABS: Eosinophils # (auto) 0 uL; Eosinophils % (auto) 0.4 % (0.0-7.0); Hemoglobin 10.4 g/dL (13.5-17.5); Lymphocytes # (auto) 0.6 uL; Nucleated Red Blood Cells % 0.2 %; White Blood Cell 10.8 10^3/uL (4.4-10.8)
[2017-08-20 03:57] LABS: Basophils # (auto) 0 uL; Basophils % (auto) 0.4 % (0.0-2.0); Hematocrit 33.5 % (41.0-53.0); Lymphocytes % (auto) 5.5 % (10.0-50.0); Mean Corpuscular Hgb Conc. 31.1 g/dL (32.0-36.0); Mean Corpuscular Volume 102.9 fL (80.0-100.0); Monocytes # (auto) 1.1 uL; Monocytes % (auto) 10.5 % (0.0-12.0); Neutrophils % (auto) 83.2 % (37.0-80.0); Platelet Count (auto) 497 10^3/uL (140-450); Red Blood Cells 3.25 10^6/uL (4.5-5.90); Red Cell Distribution Width 16.6 % (11.8-14.3)
[2017-08-20 04:12] LABS: Chloride 101 mmol/L (98-107); Potassium 5.3 mmol/L (3.5-5.1); Sodium 136 mmol/L (136-145)
[2017-08-20 04:17] LABS: Alanine Aminotransferase 11 U/L (16-61); Albumin 2.2 g/dL (3.4-5.0); Anion Gap 5 (5-15); Aspartate Aminotransferase 8 U/L (15-37); BUN/Creatinine Ratio 41.9; Blood Urea Nitrogen 36 mg/dL (7-18); Calcium 8.2 mg/dL (8.5-10.1); Carbon Dioxide 30 mmol/L (21-32); GFR African American 112 mL/min; GFR Non-African American 92 mL/min; Glucose 143 mg/dL (74-106)
[2017-08-20 04:22] LABS: Alkaline Phosphatase 127 U/L (45-117); Bilirubin, Total 0.3 mg/dL (0.2-1.0); Total Protein 6.9 g/dL (6.4-8.2)
[2017-08-20] MEDS ORDERED: NOREPINEPHRINE BITARTRATE 2 ML IV ONE (05:49)
[2017-08-20] MEDS ORDERED: PHENYLEPHRINE INJ 20 MG in SODIUM CHL 0.9% 250 ML IV SCH (06:26)
[2017-08-20] MEDS ORDERED: CALCIUM GLUC 4.65meq/50ml D5AE 50 ML IV ONE ×2 (06:30→06:39)
[2017-08-20] MEDS ORDERED: InsuLIN REG 1unit/0.01ml Soln (100units/ml) IV ONE (06:30)
[2017-08-20] MEDS ORDERED: DEXTROSE (50%) 50ML SYRG IV ONE (06:30)
[2017-08-20] MEDS ORDERED: PHENYLEPHRINE IV 250 ML IV ONE (06:30)
[2017-08-20] MEDS ORDERED: SODIUM BICARBONATE 8.4 % INJ 50ML VIAL IV ONE (06:30)
[2017-08-20] MEDS ORDERED: SODIUM BICARBONATE 8.4% INJ 50ML SYRINGE ONE (06:39)
[2017-08-20] MEDS ORDERED: DEXTROSE 50% SYRINGE 50 ML IV ONE (06:39)
[2017-08-20] MEDS ORDERED: InsuLIN REG 1unit/0.01ml Soln (100units/ml) ONE (06:39)
[2017-08-20] MEDS: NOREPINEPHRINE 8 MG/250ML KIT 250 ML IV SCH (07:03)
[2017-08-20 07:50] LABS: Urine WBC None Seen /hpf (0 - 3)
[2017-08-20] MEDS: BOOST 8 ounces PO SCH (08:00)
[2017-08-20] MEDS: PRO-STAT 64 30ML PO SCH (08:00)
[2017-08-20 08:14] LABS: Urine Bacteria NONE SEEN /hpf (None Seen); Urine Blood Negative /uL (Negative); Urine Mucus FEW (None Seen); Urine Specific Gravity 1.024 (1.001-1.035)
[2017-08-20] MEDS ORDERED: PHENYLEPHRINE INJ 80 MG in SODIUM CHL 0.9% 250 ML IV SCH (08:29)
[2017-08-20] MEDS ORDERED: NOREPINEPHRINE BITARTRATE 32 MG in D5W 5% 218 ML IV SCH (08:29)
[2017-08-20 10:13] LABS: INR 1.01 (0.9-1.15); Prothrombin Time 10.8 sec (9.27-12.13)
[2017-08-20] MEDS ORDERED: MEROPENEM 1gm/20ml IVPUSH 20 ML IV ONE (10:45)
[2017-08-20] MEDS ORDERED: VASOPRESSIN 50 UNITS in D5W 5% 247.5 ML IV SCH (10:45)
[2017-08-20] MEDS ORDERED: PANTOPRAZOLE 40 MG/10 ML VIAL IV SCH (10:58)
[2017-08-20] MEDS ORDERED: ENOXAPARIN SOD 40 MG/0.4 ML SYRINGE SC ONE (11:00)
[2017-08-20] MEDS ORDERED: LEVOFLOXACIN 500MG 100 ML IV SCH (11:00)
[2017-08-20] MEDS: SODIUM CHLORIDE 0.9% 1,000 ML IV SCH (11:55)
[2017-08-20] MEDS ORDERED: LINEZOLID 600MG/300ML 300 ML IV SCH ×2 (12:00→20:00)
[2017-08-20] MEDS: MEROPENEM 1gm/20ml IVPUSH 20 ML IV SCH (18:00)
[2017-08-20] MEDS ORDERED: LORazepam 2MG/ML-1ML VIAL IV PRN (18:45)
[2017-08-20] MEDS: MORPHINE SULFATE 8mg/ml INJ SDV IV PRN (22:22)
[2017-08-21] VITALS (8 sets, daily range): BP systolic 89–99; BP diastolic 46–62
[2017-08-21] MEDS: MORPHINE SULFATE 8mg/ml INJ SDV IV PRN (01:20)
[2017-08-21] MEDS: MEROPENEM 1gm/20ml IVPUSH 20 ML IV SCH (02:00)
[2017-08-21] MEDS ORDERED: ENOXAPARIN SOD 40 MG/0.4 ML SYRINGE SC SCH (10:00)
== END 2017-08-21 01:57 | disposition expired | DRG 871 ==
LOC: EDBD 15:57 → ER 16:00 → TELE 16:01 → DOU IN ICU 20:19 → ICU WEST 05-31 05:21 → DOU IN ICU 06-05 12:41 → TELE-WESTW 06-07 01:27 → WEST WING 06-17 09:45 → ICU WEST 08-19 18:50
PROVIDERS: ADMIT Internal Medicine; ATTEND Internal Medicine
PROC: 02HV33Z Insertion of Infusion Device into Superior Vena Cava, Percutaneous Approach (ICD-10-PCS; principal; 2017-06-01)
PROC: 5A09357 Assistance with Respiratory Ventilation, Less than 24 Consecutive Hours, Continuous Positive Airway Pressure (ICD-10-PCS; 2017-08-20)
DX: A41.59 Other Gram-negative sepsis (principal); R65.21 Severe sepsis with septic shock; J96.00 Acute respiratory failure, unspecified whether with hypoxia or hypercapnia; E43 Unspecified severe protein-calorie malnutrition; L89.159 Pressure ulcer of sacral region, unspecified stage; T17.890A Other foreign object in other parts of respiratory tract causing asphyxiation, initial encounter; I48.2 Chronic atrial fibrillation; I82.412 Acute embolism and thrombosis of left femoral vein; I11.0 Hypertensive heart disease with heart failure; I50.32 Chronic diastolic (congestive) heart failure; L03.116 Cellulitis of left lower limb; I82.812 Embolism and thrombosis of superficial veins of left lower extremity; J98.19 Other pulmonary collapse; I49.5 Sick sinus syndrome; D64.9 Anemia, unspecified; E66.01 Morbid (severe) obesity due to excess calories; I73.9 Peripheral vascular disease, unspecified; I87.2 Venous insufficiency (chronic) (peripheral); I89.0 Lymphedema, not elsewhere classified; K21.9 Gastro-esophageal reflux disease without esophagitis; L05.91 Pilonidal cyst without abscess; L89.899 Pressure ulcer of other site, unspecified stage; Z51.5 Encounter for palliative care; M19.012 Primary osteoarthritis, left shoulder; Z66 Do not resuscitate; Z16.24 Resistance to multiple antibiotics; G47.00 Insomnia, unspecified; S31.000A Unspecified open wound of lower back and pelvis without penetration into retroperitoneum, initial encounter; X58.XXXA Exposure to other specified factors, initial encounter; B96.1 Klebsiella pneumoniae [K. pneumoniae] as the cause of diseases classified elsewhere; B96.4 Proteus (mirabilis) (morganii) as the cause of diseases classified elsewhere; R19.7 Diarrhea, unspecified; Z16.12 Extended spectrum beta lactamase (ESBL) resistance; B95.2 Enterococcus as the cause of diseases classified elsewhere; Z16.21 Resistance to vancomycin; B96.89 Other specified bacterial agents as the cause of diseases classified elsewhere; Z74.01 Bed confinement status; Z82.49 Family history of ischemic heart disease and other diseases of the circulatory system; Z68.34 Body mass index [BMI] 34.0-34.9, adult; Z90.49 Acquired absence of other specified parts of digestive tract; Z98.84 Bariatric surgery status; Z99.3 Dependence on wheelchair; Z88.2 Allergy status to sulfonamides; Z79.899 Other long term (current) drug therapy; Z79.82 Long term (current) use of aspirin; Z90.89 Acquired absence of other organs; Y93.89 Activity, other specified; Y92.89 Other specified places as the place of occurrence of the external cause; Y99.8 Other external cause status
CPT/HCPCS: 36415; 36569; 36600; 71045; 73030; 80048; 80053; 80076; 80150; 80202; 81001; 82040; 82140; 82306; 82533; 82607; 82746; 82805; 82962; 83540; 83550; 83605; 83690; 83735; 83880; 84100; 84478; 84484; 85007; 85025; 85027; 85610; 85652; 85730; 86141; 87040; 87070; 87077; 87081; 87086; 87186; 87205; 87493; 93005; 93306; 93971; 94660; 96361; 96365; 96372; 96375; 96379; 97110; 97116; 97530; C9113; J0171; J0610; J1335; J1815; J1956; J2270; J2543; J3490; J7060; J7131; P9047